=== PATIENT | female | born 1970 | race Caucasian/White ===

== ENCOUNTER 2017-04-20 04:39 | Observation (INO) ==
[2017-04-20] MEDS ORDERED: 0.9 % Sodium Chloride 1,000 ML IVC ONE ×2 (04:50→05:49)
[2017-04-20 05:40] LABS: Basophils # 0.1 K/mcL (0.0-0.2); Basophils % 0.3 %; Eosinophils # 0.2 K/mcL (0.0-0.6); Eosinophils % 1.2 %; Hemoglobin 12.8 g/dL (11.5-15.4); Immature Granulocytes % 0.6 % (0-4); Immature Platelets 2.4 % (1.1-6.1); Lymphocytes # 3.6 K/mcL (0.6-4.6); Lymphocytes % 20.3 %; Mean Corpuscular HGB Conc 32.8 g/dL (31.6-35.5); Mean Corpuscular Hemoglobin 28.6 pg (28.0-33.3); Mean Corpuscular Volume 87.1 fL (83.0-100.0); Mean Platelet Volume 8.8 fL (9.4-12.4); Monocytes # 0.8 K/mcL (0.0-1.3); Monocytes % 4.4 %; Neutrophils # 12.9 K/mcL (1.6-8.9); Platelet Count 291 K/mcL (140-400); Red Blood Count 4.48 M/mcL (3.82-4.97); Red Cell Distribution Width 14.1 % (11.5-14.5); Segmented Neutrophils % 73.2 %
--- NOTE | 2017-04-20 05:45 | Emergency Department Note ---
Disposition Clinical Impression: Hypotension Qualifiers: Hypotension type: unspecified hypotension type Qualified Code(s): I95.9 - Hypotension, unspecified Disposition: Still a Patient Condition: Fair Referrals: Nestor Stewart CNP [Primary Care Provider] - Forms: ED Satisfaction Letter, Work/School Release Time of Disposition: 07:27 General Adult HPI - General Chief complaint: ED General Medical Stated complaint: hypotension Time Seen by Provider: 04/20/17 04:40 Source: patient, family, EMS Limitations: no limitations Nursing Notes Reviewed: Yes Vital Signs Reviewed: Yes - History of Present Illness HPI Narrative: 46yo female c/o hypotension. She also felt chest pain, dizziness. She called squad her symptoms, and blood pressure on arrival was 94/57. She was given 500 mL saline which improved her pressure 113/54. Patient does mention recent initiation of 2 blood pressure medications at her doctor's office yesterday which were clonidine and metoprolol. She was seen yesterday for follow-up from an emergency visit one week ago. An emergency visit she had presented with a headache and patient mentioned she also had hypertension. She tells me that symptoms improved, but her workup did not determine any causes. She mentions diarrhea this past week, and intermittent lightheadedness. She had bouts of CP earlier in the week. She denies fever, abdominal pain, urinary symptoms, CRESPO, weakness. Pain Scale: 6 - Related Data Home Medications Medication Instructions Recorded Confirmed Albuterol Sulfate [Albuterol 90 mcg IH Q4HR PRN 03/27/15 10/20/15 Inhaler] Azelastine 1% Nasal [place] [Astelin] 1 spr NS BID 03/27/15 10/20/15 Calcium Carbonate/Vitamin D3 1 each PO DAILY 03/27/15 10/20/15 [Calcium 600 + D Tablet] Cetirizine HCl [Zyrtec] 10 mg PO DAILY 03/27/15 10/20/15 Cyclobenzaprine [Flexeril] 10 mg PO TID 03/27/15 10/20/15 EPINEPHrine PACK [EPINEPHrine] 0.3 mg IM ONCE PRN 03/27/15 10/20/15 Fluticasone Propionate Nasal 1 spray NS DAILY 03/27/15 10/20/15 [Flonase] Fluticasone Propionate [Flovent 110 mcg IH BID 03/27/15 10/20/15 Hfa] Hydrochlorothiazide 25 mg PO DAILY 03/27/15 10/20/15 Ipratropium/Albuterol Neb [Duoneb] 3 ml IH Q4HR PRN 03/27/15 10/20/15 Mometasone Furoate [Asmanex] 110 mcg IH BID 03/27/15 10/20/15 Montelukast [Singulair] 10 mg PO DAILY 03/27/15 10/20/15 Omeprazole [PriLOSEC] 20 mg PO DAILY 03/27/15 10/20/15 Oxybutynin [Ditropan] 5 mg PO BID 03/27/15 10/20/15 Paroxetine [Paxil] 10 mg PO DAILY 03/27/15 10/20/15 Potassium Chloride 20 meq PO DAILY 03/27/15 10/20/15 Previous Rx's Medication Instructions Recorded Docusate [Colace] 100 mg PO BID #60 capsule 03/27/15 Amoxicillin 500 mg PO TID #30 tablet 10/20/15 Allergies Allergy/AdvReac Type Severity Reaction Status Date / Time diazepam [From Valium] Allergy Severe Swelling Verified 03/27/15 09:11 of Lip/Tongue/Throat duloxetine [From Cymbalta] Allergy Severe Swelling Verified 03/27/15 09:11 of Lip/Tongue/Throat Minocycline Allergy Severe Swelling Verified 03/27/15 09:11 of Lip/Tongue/Throat olanzapine [From Zyprexa] Allergy Severe Swelling Verified 03/27/15 09:11 of Lip/Tongue/Throat iodine Allergy Mild SWELLING, Verified 03/27/15 09:11 SOB methylprednisolone Allergy Mild SWELLING,SO Verified 03/27/15 09:11 [From Medrol] B acetaminophen [From Percocet] AdvReac Mild Vomiting Verified 03/27/15 09:11 Oxycodone [From Percocet] AdvReac Mild Vomiting Verified 03/27/15 09:11 All systems ED: reviewed and negative except as stated. Constitutional: Denies: fever, chills Eyes: Denies: eye discharge ENT ED: Denies: throat pain Cardiovascular: Denies: palpitations Respiratory: Denies: dyspnea Gastrointestinal: Reports: nausea, vomiting, diarrhea. 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 Absent: conjunctival injection - ENT ENT exam: normal oropharynx - Neck Neck exam: Present: full ROM. Absent: tenderness, meningismus - Chest Chest inspection: Present: symmetric chest wall rise - Respiratory Respiratory exam: Present: normal lung sounds bilaterally. Absent: respiratory distress - Cardiovascular Cardiovascular exam: Present: regular rate, normal rhythm - Abdominal Exam Abdominal exam: Present: soft, Non-Tender - Extremities Exam Extremities exam: Present: normal inspection, full ROM, normal capillary refill - Back Exam Back exam: Present: full ROM, tenderness (chronic L lumbar) - Neurological Exam Neurological exam: Present: alert, oriented X3, CN II-XII intact - Psychiatric Psychiatric exam: Present: normal affect, normal mood - Skin Skin exam: Present: warm, dry, intact, normal color. Absent: rash, cyanosis, diaphoresis Course Course Narrative: Patient presents to [facility] from home with hypotension. She describes her blood pressure being low, and she was recently put on clonidine and metoprolol.Patient states she does take Flexeril at night at times, but did not take it tonight. She did take her Neurontin. She denies any syncope, does mention she has had intermittent feelings of feeling "seasick". She mentions earlier and recheck occasional episodes of chest pain. Vision seen and examined. Family at bedside. Blood pressure improved. Patient alert and oriented 3. Patient afebrile here sent home. Workup initiated. - Reevaluation(s) Reevaluation #1: Patient has elevated white count. Urinalysis checks x-ray unremarkable. Blood pressures improving 104/26. Fluids running. Blood cultures and lactic acid have already vertigo been ordered with initial orders. Patient now complaining of headache. We will order Toradol. Time: 06:22 Reevaluation #2: Care of this patient was transferred over to dayshift provider Dr. Caceres. Please see his documentation for details. I did discuss patient with Dr. Caceres , specifically patient's lab work, chest pain. Plan will be to discuss with hospitalist for admission for cardiac rule out. Dr. Caceres also mentioned no need for antibiotics at this point, elevated white count likely due to gastroenteritis. We will continue fluids, order a stool culture for C. difficile Time: 07:27 Vital Signs Temperature 98.6 F 04/20/17 04:43 Pulse Rate 68 04/20/17 04:43 Respiratory Rate 16 04/20/17 04:43 Blood Pressure 112/74 04/20/17 04:43 O2 Sat by Pulse Oximetry 99 04/20/17 04:43 Temperature 98.6 F 04/20/17 04:43 Pulse Rate 72 04/20/17 06:15 Respiratory Rate 16 04/20/17 04:43 Blood Pressure 98/63 04/20/17 06:15 O2 Sat by Pulse Oximetry 93 04/20/17 06:15 Oxygen Delivery Oxygen Delivery Nasal Cannula Medical Decision Making - Lab Data Lab results reviewed: Yes I reviewed the patient's lab results. Result diagrams: 04/20/17 05:32 04/20/17 05:32 Lab Results 04/20/17 04/20/17 04/20/17 Range/Units 05:00 05:32 05:32 WBC 17.7 H (4.3-11.1) K/mcL RBC 4.48 (3.82-4.97) M/mcL Hgb 12.8 D (11.5-15.4) g/dL Hct 39.0 (35.3-44.9) % MCV 87.1 (83.0-100.0) fL MCH 28.6 (28.0-33.3) pg MCHC 32.8 (31.6-35.5) g/dL RDW 14.1 (11.5-14.5) % Plt Count 291 (140-400) K/mcL MPV 8.8 L (9.4-12.4) fL Immature Gran % 0.6 (0-4) % Seg Neutrophils % 73.2 % Lymphocytes % 20.3 % Monocytes % 4.4 % Eosinophils % 1.2 % Basophils % 0.3 % Neutrophils # 12.9 H (1.6-8.9) K/mcL Lymphocytes # 3.6 (0.6-4.6) K/mcL Monocytes # 0.8 (0.0-1.3) K/mcL Eosinophils # 0.2 (0.0-0.6) K/mcL Basophils # 0.1 (0.0-0.2) K/mcL Immature Plt Fraction 2.4 (1.1-6.1) % Sodium 140 (136-145) mEq/L Potassium 3.4 L (3.5-4.5) mEq/L Chloride 107 (98-109) mEq/L Carbon Dioxide 25 (19-29) mEq/L BUN 12 (7-20) mg/dL Creatinine 0.75 (0.57-1.11) mg/dL Est GFR ( Amer) > 60 (> 60) Est GFR (Non-Af Amer) > 60 (> 60) BUN/Creatinine Ratio 16 (6-26) Glucose 89 (70-99) mg/dL Calculated Osmolality 289 (280-300) Lactic Acid (0.5-2.2) mmol/L Calcium 9.1 (8.6-10.8) mg/dL Troponin I (0-0.03) ng/mL Urine Color Yellow (Yellow) Urine Clarity Clear (Clear) Urine pH 6.0 (5.0-8.0) pH Units Ur Specific [place] 1.016 (1.010-1.025) Urine Protein Negative (Neg-Trace) mg/dL Urine Glucose (UA) Normal (Normal) mg/dL Urine Ketones Negative (Negative) mg/dL Urine Blood Small H (Negative) Urine Nitrite Negative (Negative) Urine Bilirubin Negative (Negative) Urine Urobilinogen Normal (Normal) mg/dL Ur Leukocyte Esterase Negative (Negative) Urine Microscopic RBC 0-3 (0-3) per hpf Urine Microscopic WBC 3-5 H (0-3) per hpf Ur Squamous Epith Cells Many H (None-Few) per lpf Urine Bacteria Few (None-Few) per hpf Hyaline Casts None Seen (None-Few) per lpf Ur Culture Indicated? NO (NO) 04/20/17 04/20/17 04/20/17 Range/Units 05:32 05:32 06:55 WBC (4.3-11.1) K/mcL RBC (3.82-4.97) M/mcL Hgb (11.5-15.4) g/dL Hct (35.3-44.9) % MCV (83.0-100.0) fL MCH (28.0-33.3) pg MCHC (31.6-35.5) g/dL RDW (11.5-14.5) % Plt Count (140-400) K/mcL MPV (9.4-12.4) fL Immature Gran % (0-4) % Seg Neutrophils % % Lymphocytes % % Monocytes % % Eosinophils % % Basophils % % Neutrophils # (1.6-8.9) K/mcL Lymphocytes # (0.6-4.6) K/mcL Monocytes # (0.0-1.3) K/mcL Eosinophils # (0.0-0.6) K/mcL Basophils # (0.0-0.2) K/mcL Immature Plt Fraction (1.1-6.1) % Sodium (136-145) mEq/L Potassium (3.5-4.5) mEq/L Chloride (98-109) mEq/L Carbon Dioxide (19-29) mEq/L BUN (7-20) mg/dL Creatinine (0.57-1.11) mg/dL Est GFR ( Amer) (> 60) Est GFR (Non-Af Amer) (> 60) BUN/Creatinine Ratio (6-26) Glucose (70-99) mg/dL Calculated Osmolality (280-300) Lactic Acid 1.5 2.1 (0.5-2.2) mmol/L Calcium (8.6-10.8) mg/dL Troponin I 0.01 (0-0.03) ng/mL Urine Color (Yellow) Urine Clarity (Clear) Urine pH (5.0-8.0) pH Units Ur Specific [place] (1.010-1.025) Urine Protein (Neg-Trace) mg/dL Urine Glucose (UA) (Normal) mg/dL Urine Ketones (Negative) mg/dL Urine Blood (Negative) Urine Nitrite (Negative) Urine Bilirubin (Negative) Urine Urobilinogen (Normal) mg/dL Ur Leukocyte Esterase (Negative) Urine Microscopic RBC (0-3) per hpf Urine Microscopic WBC (0-3) per hpf Ur Squamous Epith Cells (None-Few) per lpf Urine Bacteria (None-Few) per hpf Hyaline Casts (None-Few) per lpf Ur Culture Indicated? (NO) - Radiology Data Radiology results reviewed: Yes I reviewed the patient's radiology results. - EKG Data EKG #1 EKG attestation: Yes I reviewed and interpreted this EKG. EKG shows normal: sinus rhythm Rate: normal Rhythm: NSR When compared to previous EKG there are: no significant changes Interpretation: normal EKG S.B.A.R. - S.B.A.R. Situation: Demographics, MOA Background: Presenting Complaint, Relevant PMH, Meds, & Allergies Assessment: Vital Signs, Course and respsone to treatment, Pertinant Lab Results , Outstanding Labs Recommendation: Recommendation based on pending studies, treatments, or consults S.B.A.RHoang Report Given to: Dr. Andrei Shafer Repor Time: 07:27
[2017-04-20] MEDS ORDERED: Ondansetron 4 MG/2 ML VIAL IVP ONE (05:50)
[2017-04-20 05:51] LABS: BUN/Creatinine Ratio 16 (6-26); Blood Urea Nitrogen 12 mg/dL (7-20); Calcium 9.1 mg/dL (8.6-10.8); Carbon Dioxide 25 mEq/L (19-29); Chloride 107 mEq/L (98-109); Glucose 89 mg/dL (70-99); Osmolality,Calculated 289 (280-300); Potassium 3.4 mEq/L (3.5-4.5); Sodium 140 mEq/L (136-145); eGFR For African Americans > 60 (> 60); eGFR For Non-African Americans > 60 (> 60)
[2017-04-20] MEDS ORDERED: Ketorolac 15 MG/ML VIAL IVP ONE (06:05)
[2017-04-20 06:09] LABS: Bilirubin,Urine Negative (Negative); Blood,Urine Small (Negative); Clarity,Urine Clear (Clear); Color,Urine Yellow (Yellow); Glucose,Urine (UA) Normal (Normal); Ketones,Urine Negative (Negative); Leukocyte Esterase,Urine Negative (Negative); Nitrite,Urine Negative (Negative); Protein,Urine Negative (Neg-Trace); Specific Gravity,Urine 1.016 (1.010-1.025); Urobilinogen,Urine Normal (Normal)
[2017-04-20 06:21] LABS: Bacteria,Urine Few per hpf (None-Few); Hyaline Casts,Urine None Seen per lpf (None-Few); RBC,Urine 0-3 per hpf (0-3); Squamous Epithelial Cell,Urine Many per lpf (None-Few)
--- NOTE | 2017-04-20 07:53 | Emergency Department Note ---
Disposition Clinical Impression: Hypotension Qualifiers: Hypotension type: unspecified hypotension type Qualified Code(s): I95.9 - Hypotension, unspecified Chest pain Qualifiers: Chest pain type: unspecified Qualified Code(s): R07.9 - Chest pain, unspecified Disposition: Admitted As Inpatient Condition: Fair Referrals: Nestor Stewart CNP [Primary Care Provider] - Forms: ED Satisfaction Letter, Work/School Release Time of Disposition: 07:52 General Adult HPI - General Chief complaint: ED General Medical Stated complaint: hypotension Time Seen by Provider: 04/20/17 04:40 Source: patient, family, EMS Limitations: no limitations - History of Present Illness Pain Scale: 6 - Related Data Home Medications Medication Instructions Recorded Confirmed Albuterol Sulfate [Albuterol 90 mcg IH Q4HR PRN 03/27/15 10/20/15 Inhaler] Azelastine 1% Nasal [place] [Astelin] 1 spr NS BID 03/27/15 10/20/15 Calcium Carbonate/Vitamin D3 1 each PO DAILY 03/27/15 10/20/15 [Calcium 600 + D Tablet] Cetirizine HCl [Zyrtec] 10 mg PO DAILY 03/27/15 10/20/15 Cyclobenzaprine [Flexeril] 10 mg PO TID 03/27/15 10/20/15 EPINEPHrine PACK [EPINEPHrine] 0.3 mg IM ONCE PRN 03/27/15 10/20/15 Fluticasone Propionate Nasal 1 spray NS DAILY 03/27/15 10/20/15 [Flonase] Fluticasone Propionate [Flovent 110 mcg IH BID 03/27/15 10/20/15 Hfa] Hydrochlorothiazide 25 mg PO DAILY 03/27/15 10/20/15 Ipratropium/Albuterol Neb [Duoneb] 3 ml IH Q4HR PRN 03/27/15 10/20/15 Mometasone Furoate [Asmanex] 110 mcg IH BID 03/27/15 10/20/15 Montelukast [Singulair] 10 mg PO DAILY 03/27/15 10/20/15 Omeprazole [PriLOSEC] 20 mg PO DAILY 03/27/15 10/20/15 Oxybutynin [Ditropan] 5 mg PO BID 10/23/15 05/17/16 Paroxetine [Paxil] 10 mg PO DAILY 03/27/15 10/20/15 Potassium Chloride 20 meq PO DAILY 03/27/15 10/20/15 Previous Rx's Medication Instructions Recorded Docusate [Colace] 100 mg PO BID #60 capsule 03/27/15 Amoxicillin 500 mg PO TID #30 tablet 10/20/15 Allergies Allergy/AdvReac Type Severity Reaction Status Date / Time diazepam [From Valium] Allergy Severe Swelling Verified 03/27/15 09:11 of Lip/Tongue/Throat duloxetine [From Cymbalta] Allergy Severe Swelling Verified 03/27/15 09:11 of Lip/Tongue/Throat Minocycline Allergy Severe Swelling Verified 03/27/15 09:11 of Lip/Tongue/Throat olanzapine [From Zyprexa] Allergy Severe Swelling Verified 03/27/15 09:11 of Lip/Tongue/Throat iodine Allergy Mild SWELLING, Verified 03/27/15 09:11 SOB methylprednisolone Allergy Mild SWELLING,SO Verified 03/27/15 09:11 [From Medrol] B acetaminophen [From Percocet] AdvReac Mild Vomiting Verified 03/27/15 09:11 Oxycodone [From Percocet] AdvReac Mild Vomiting Verified 03/27/15 09:11 Constitutional: Denies: fever, chills Eyes: Denies: eye discharge ENT ED: Denies: throat pain Cardiovascular: Denies: palpitations Respiratory: Denies: dyspnea Gastrointestinal: Reports: nausea, vomiting, diarrhea. 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 Patient had the hypotension likely related to starting new medications. She also has had intermittent chest pain for the last week. She does have multiple risk factors and she has not had a cardiac workup. For further evaluation and treatment. Time: 07:51 - Consultations Consultation #1: Discussed with Haroon Serrano, who accepts the patient. Time: 07:52 Vital Signs Temperature 98.6 F 04/20/17 04:43 Pulse Rate 68 04/20/17 04:43 Respiratory Rate 16 04/20/17 04:43 Blood Pressure 112/74 04/20/17 04:43 O2 Sat by Pulse Oximetry 99 04/20/17 04:43 Temperature 98.6 F 04/20/17 04:43 Pulse Rate 72 04/20/17 06:15 Respiratory Rate 16 04/20/17 04:43 Blood Pressure 98/63 04/20/17 06:15 O2 Sat by Pulse Oximetry 93 04/20/17 06:15 Oxygen Delivery Oxygen Delivery Nasal Cannula Medical Decision Making - Lab Data Result diagrams: 04/20/17 05:32 04/20/17 05:32 Lab Results 04/20/17 04/20/17 04/20/17 Range/Units 05:00 05:32 05:32 WBC 17.7 H (4.3-11.1) K/mcL RBC 4.48 (3.82-4.97) M/mcL Hgb 12.8 D (11.5-15.4) g/dL Hct 39.0 (35.3-44.9) % MCV 87.1 (83.0-100.0) fL MCH 28.6 (28.0-33.3) pg MCHC 32.8 (31.6-35.5) g/dL RDW 14.1 (11.5-14.5) % Plt Count 291 (140-400) K/mcL MPV 8.8 L (9.4-12.4) fL Immature Gran % 0.6 (0-4) % Seg Neutrophils % 73.2 % Lymphocytes % 20.3 % Monocytes % 4.4 % Eosinophils % 1.2 % Basophils % 0.3 % Neutrophils # 12.9 H (1.6-8.9) K/mcL Lymphocytes # 3.6 (0.6-4.6) K/mcL Monocytes # 0.8 (0.0-1.3) K/mcL Eosinophils # 0.2 (0.0-0.6) K/mcL Basophils # 0.1 (0.0-0.2) K/mcL Immature Plt Fraction 2.4 (1.1-6.1) % Sodium 140 (136-145) mEq/L Potassium 3.4 L (3.5-4.5) mEq/L Chloride 107 (98-109) mEq/L Carbon Dioxide 25 (19-29) mEq/L BUN 12 (7-20) mg/dL Creatinine 0.75 (0.57-1.11) mg/dL Est GFR ( Amer) > 60 (> 60) Est GFR (Non-Af Amer) > 60 (> 60) BUN/Creatinine Ratio 16 (6-26) Glucose 89 (70-99) mg/dL Calculated Osmolality 289 (280-300) Lactic Acid (0.5-2.2) mmol/L Calcium 9.1 (8.6-10.8) mg/dL Troponin I (0-0.03) ng/mL Urine Color Yellow (Yellow) Urine Clarity Clear (Clear) Urine pH 6.0 (5.0-8.0) pH Units Ur Specific [place] 1.016 (1.010-1.025) Urine Protein Negative (Neg-Trace) mg/dL Urine Glucose (UA) Normal (Normal) mg/dL Urine Ketones Negative (Negative) mg/dL Urine Blood Small H (Negative) Urine Nitrite Negative (Negative) Urine Bilirubin Negative (Negative) Urine Urobilinogen Normal (Normal) mg/dL Ur Leukocyte Esterase Negative (Negative) Urine Microscopic RBC 0-3 (0-3) per hpf Urine Microscopic WBC 3-5 H (0-3) per hpf Ur Squamous Epith Cells Many H (None-Few) per lpf Urine Bacteria Few (None-Few) per hpf Hyaline Casts None Seen (None-Few) per lpf Ur Culture Indicated? NO (NO) 04/20/17 04/20/17 04/20/17 Range/Units 05:32 05:32 06:55 WBC (4.3-11.1) K/mcL RBC (3.82-4.97) M/mcL Hgb (11.5-15.4) g/dL Hct (35.3-44.9) % MCV (83.0-100.0) fL MCH (28.0-33.3) pg MCHC (31.6-35.5) g/dL RDW (11.5-14.5) % Plt Count (140-400) K/mcL MPV (9.4-12.4) fL Immature Gran % (0-4) % Seg Neutrophils % % Lymphocytes % % Monocytes % % Eosinophils % % Basophils % % Neutrophils # (1.6-8.9) K/mcL Lymphocytes # (0.6-4.6) K/mcL Monocytes # (0.0-1.3) K/mcL Eosinophils # (0.0-0.6) K/mcL Basophils # (0.0-0.2) K/mcL Immature Plt Fraction (1.1-6.1) % Sodium (136-145) mEq/L Potassium (3.5-4.5) mEq/L Chloride (98-109) mEq/L Carbon Dioxide (19-29) mEq/L BUN (7-20) mg/dL Creatinine (0.57-1.11) mg/dL Est GFR ( Amer) (> 60) Est GFR (Non-Af Amer) (> 60) BUN/Creatinine Ratio (6-26) Glucose (70-99) mg/dL Calculated Osmolality (280-300) Lactic Acid 1.5 2.1 (0.5-2.2) mmol/L Calcium (8.6-10.8) mg/dL Troponin I 0.01 (0-0.03) ng/mL Urine Color (Yellow) Urine Clarity (Clear) Urine pH (5.0-8.0) pH Units Ur Specific [place] (1.010-1.025) Urine Protein (Neg-Trace) mg/dL Urine Glucose (UA) (Normal) mg/dL Urine Ketones (Negative) mg/dL Urine Blood (Negative) Urine Nitrite (Negative) Urine Bilirubin (Negative) Urine Urobilinogen (Normal) mg/dL Ur Leukocyte Esterase (Negative) Urine Microscopic RBC (0-3) per hpf Urine Microscopic WBC (0-3) per hpf Ur Squamous Epith Cells (None-Few) per lpf Urine Bacteria (None-Few) per hpf Hyaline Casts (None-Few) per lpf Ur Culture Indicated? (NO)
[2017-04-20] MEDS ORDERED: *HR* HYDROcodone/Acet 5/325 mg TABLET PO PRN (08:26)
[2017-04-20] MEDS ORDERED: Ondansetron 4 MG/2 ML VIAL IVP PRN (08:26)
[2017-04-20] MEDS ORDERED: Acetaminophen 325 MG TABLET PO PRN (08:26)
[2017-04-20] MEDS ORDERED: Naloxone 0.4 MG/ML INJ IVP PRN (08:26)
--- NOTE | 2017-04-20 08:47 | Internal Med History&Physical ---
Date of Encounter: 04/20/17 Time of Encounter: 07:30 Assessment and Plan (1) Chest pain Current visit: Yes Status: Acute Acute and intermittent chest pain over the past month that the pain described as sharp and stabbing followed by pressure without radiation and without exertion. Patient's risk factors include hyperlipidemia and hypertension but she denies any history of cardiac issues, angioplasty, or stent placement. No recent echocardiogram. Initial troponin 0.01. Trend 2. Echocardiogram ordered. Continuous cardiac telemetry. Will consider stress test/cardiology consult based on echocardiogram results. Pt. is at high risk for cardiac event based on current sx, hx of CP for > 1 month, and risk factors. Inpatient. Qualifiers: Chest pain type: unspecified Qualified Code(s): R07.9 - Chest pain, unspecified (2) Hypotension Current visit: Yes Status: Acute Acute hypotension past 24 hours. Patient states she was placed on clonidine and metoprolol beginning yesterday. Patient takes hydrochlorothiazide in addition. Will hold hydrochlorothiazide and clonidine and continue metoprolol. Monitor patient and vital signs. Qualifiers: Hypotension type: unspecified hypotension type Qualified Code(s): I95.9 - Hypotension, unspecified (3) Leukocytosis Current visit: Yes Status: Acute Acute leukocytosis with WBC of 17.7. Pt. reports being sick last week with nausea, vomiting, diarrhea, fever, and cough w/yellow sputum. Was seen in ED and discharged without antibiotics. Reports continued cough/sputum. 1-View CXR today shows no acute disease. Pt. does not currently meet SIRS criteria, but will monitor for signs of increasing infection. IVPB 750 mg daily for infection coverage. Blood cultures x2. Sputum culture. Will adjust abx coverage based on culture results. Qualifiers: Leukocytosis type: unspecified Qualified Code(s): D72.829 - Elevated white blood cell count, unspecified (4) Dizziness Current visit: Yes Status: Acute Acute dizziness reported over the past day most likely r/t hypotension. Continuous cardiac telemetry. Falls/safety precautions. (5) Hypokalemia Current visit: Yes Status: Acute Acute hypokalemia with potassium level of 3.4 on admission. 20 mEq PO potassium. Continuous cardiac telemetry. Monitor f/u labs. (6) HLD (hyperlipidemia) Current visit: Yes Status: Chronic Hx of chronic HLD. Lipid panel in a.m. labs. Continue Triglide and Zetia. Qualifiers: Hyperlipidemia type: pure hypercholesterolemia Qualified Code(s): E78.00 - Pure hypercholesterolemia, unspecified; E78.0 - Pure hypercholesterolemia (7) Asthma Current visit: Yes Status: Chronic Hx of chronic asthma. Continue patient's Singulair and Asmanex. Qualifiers: Asthma severity: mild Asthma persistence: intermittent Asthma complication type: uncomplicated Qualified Code(s): J45.20 - Mild intermittent asthma, uncomplicated (8) Chronic GERD Current visit: Yes Status: Chronic Hx of chronic GERD. 150 mg Zantac syrup BID daily. (9) DVT prophylaxis Current visit: Yes Status: Acute Lovenox 40 mg 0600 daily for DVT prophylaxis. Monitor pt. for signs of bleeding. Internal Medicine - H&P: HPI Chief complaint: Chest pain/Hypotension Admitted From: Emergency Dept Plans for Post Hospital Care: Home History of present illness: Ms. Chambers is a 46 year old female with medical history of asthma, GERD, HLD, and HTN presents to ED with chief complaint of chest pain and low blood pressure for the past day. Patient states she has had intermittent chest pain for the past month that she describes as sharp and stabbing followed by pressure without radiation and without exertion. She also reports hypertension began yesterday after being placed on 2 new HTN medications (metoprolol and clonidine). Denies previous hypotensive episodes. Patient also reports recent illness last week with nausea, vomiting, diarrhea, fever, and cough with yellow sputum production for which she was seen in ED and discharged w/o abx. Pt. also reports dizziness but denies current nausea, vomiting, diarrhea, constipation, abdominal pain, palpitations, changes in vision, unusual bleeding, headache, weakness, shortness of breath, diaphoresis, numbness, tingling, pre-syncope, or syncope. Past Med Surg Social Fam HX - Past Medical History Source: patient, old records reviewed Medical history: asthma, GERD, hyperlipidemia, hypertension, other Psychiatric history: depression - Past Surgical History Surgical History: appendectomy, cholecystectomy, hysterectomy (Total), orthopedic, other (Back surgery x7, Rt. shoulder x2), BIBIANA/BSO, other ( Tonsillectomy) - Social History Smoking Status: Current every day smoker Packs per day: 1 PPD Smokeless Tobacco Status: No Alcohol use: none Drug use: none Current living situation: Home Activity Level: Independent ambulation Recent Out of Country Travel Within the Last 8 Weeks: No Exposure or Possible Exposure to Illness During Travel: No - Family History Father Race: Family Member Ethnicity: Non- Living Status: Age at : 58 Cause of : Throat cancer Hx Family Cardiac Disorders: Yes ([place]) Hx Family Cancer: Yes (Throat) Mother Race: Family Member Ethnicity: Non- Living Status: Still Living Hx Family Medical Disorders: No Sister Race: Family Member Ethnicity: Non- Living Status: Still Living Hx Family Medical Disorders: No Internal Medicine - H&P: Meds Albuterol Sulfate [Albuterol Inhaler] 90 mcg IH Q4HR PRN 03/27/15 [History] Azelastine 1% Nasal [place] [Astelin] 1 spr NS BID 03/27/15 [History] Calcium Carbonate/Vitamin D3 [Calcium 600 + D Tablet] 1 each PO DAILY 03/27/15 [ History] Cetirizine HCl [Zyrtec] 10 mg PO DAILY 03/27/15 [History] Cyclobenzaprine [Flexeril] 10 mg PO TID 03/27/15 [History] Docusate [Colace] 100 mg PO BID #60 capsule 03/27/15 [Rx] EPINEPHrine PACK [EPINEPHrine] 0.3 mg IM ONCE PRN 03/27/15 [History] Fluticasone Propionate Nasal [Flonase] 1 spray NS DAILY 03/27/15 [History] Hydrochlorothiazide 25 mg PO DAILY 03/27/15 [History] Mometasone Furoate [Asmanex] 110 mcg IH BID 03/27/15 [History] Montelukast [Singulair] 10 mg PO DAILY 03/27/15 [History] Paroxetine [Paxil] 10 mg PO DAILY 03/27/15 [History] Potassium Chloride 20 meq PO DAILY 03/27/15 [History] Ezetimibe [Zetia] 10 mg PO DAILY 04/20/17 [History] Fenofibrate Nanocrystallized [Triglide] 160 mg PO DAILY 04/20/17 [History] Gabapentin [Neurontin] 300 mg PO TID 04/20/17 [History] Metoprolol XL (24 HR) Succ [Toprol XL] 25 mg PO DAILY 04/20/17 [History] Paroxetine HCl [Paxil] 40 mg PO DAILY 04/20/17 [History] Ranitidine HCl [Acid Shells Inspector] 150 mg PO BID 04/20/17 [History] cloNIDine HCl [CloNIDine HCl] 0.1 mg PO TID 04/20/17 [History] 3 Allergy/AdvReac Type Severity Reaction Status Date / Time diazepam [From Valium] Allergy Severe Swelling Verified 04/20/17 08:05 of Lip/Tongue/Throat duloxetine [From Cymbalta] Allergy Severe Swelling Verified 04/20/17 08:05 of Lip/Tongue/Throat Minocycline Allergy Severe Swelling Verified 04/20/17 08:05 of Lip/Tongue/Throat olanzapine [From Zyprexa] Allergy Severe Swelling Verified 04/20/17 08:05 of Lip/Tongue/Throat iodine Allergy Mild SWELLING, Verified 04/20/17 08:05 SOB methylprednisolone Allergy Mild SWELLING,SO Verified 04/20/17 08:05 [From Medrol] B acetaminophen [From Percocet] AdvReac Mild Vomiting Verified 04/20/17 08:05 Oxycodone [From Percocet] AdvReac Mild Vomiting Verified 04/20/17 08:05 All Systems PM: A 10-system review of systems was performed and is negative for pertinent findings except as documented above in the HPI. - Constitutional Constitutional: as per HPI, no chills, no fever(s), no night sweats - EENT Eyes: no change in vision, no discharge, no pain, no photophobia Ears: no ear discharge, no ear pain, no tinnitus Nose, mouth and throat: no dysphagia, no nasal discharge, no neck pain, no sore throat - Breasts Breasts: as per HPI - Cardiovascular Cardiovascular ROS IM: as per HPI, chest pain (Sharp and stabbing pain followed by pressure that is intermittent) - Respiratory Respiratory: as per HPI, cough, change in phlegm color - Gastrointestinal Gastrointestinal: no abdominal pain, no diarrhea, no hematemesis, no hematochezia, no melena, no nausea, no vomiting - Genitourinary Genitourinary: no change in urinary stream, no dysuria, no flank pain, no hematuria Menstruation: as per HPI, post hysterectomy - Musculoskeletal Musculoskeletal ROS IM: no numbness, no tingling - Integumentary Integumentary IM: no rash, no unusual bruising - Neurological Neurological ROS: as per HPI, dizziness, no confusion, no convulsions, no focal weakness, no numbness, no tingling, no tremor(s) - Psychiatric Psychiatric: as per HPI, depression - Endocrine Endocrine IM: as per HPI - Hematologic/Lymphatic Hematologic/Lymphatic: no easy bruising - Allergic/Immunologic Allergic/Immunologic: as per HPI - Constitutional Vitals: Temp Pulse Resp BP Pulse Ox 98.6 F 72 16 101/64 93 04/20/17 04:43 04/20/17 06:15 04/20/17 08:30 04/20/17 08:30 04/20/17 06:15 General appearance: Present: cooperative, A&O X 3, pleasant, no acute distress, obese, answers questions appropriately - Head Head exam: Present: atraumatic, normocephalic - Eye Eye exam: Present: PERRL, conjuntiva pink, sclera anicteric Pupils: Present: PERRL - ENT ENT exam: Present: normal exam, normal external ear exam - Neck Neck exam general surgery: Present: normal inspection, supple, trachea midline. Absent: lymphadenopathy - Respiratory Respiratory exam: Present: CTAB. Absent: accessory muscle use, rales, rhonchi, wheezes - Cardiovascular Cardiovascular exam: Present: RRR, +S1, +S2. Absent: diastolic murmur, gallop, rubs, systolic murmur - GI/Abdominal GI/Abdominal exam: Present: normal bowel sounds, soft, no peritoneal signs. Absent: distended, tenderness - Rectal Rectal exam: Present: deferred - Additional comments: exam deferred. - Extremities Exam Extremities exam: Present: warm, radial pulses palpable and symmetrical. Absent : calf tenderness, cyanotic, pedal edema - Back Exam Back exam: Present: normal inspection - Neurological Exam Neurological exam: Present: CN II-XII intact, oriented X3, no focal deficits. Absent: pronater drift, facial droop, speech deficit - Psychiatric Psychiatric exam: Present: normal affect, normal mood - Skin Skin exam: Present: dry, intact Internal Med - H&P Results - Labs CBC & Chem 7: 04/20/17 05:32 04/20/17 05:32 - EKG Data EKG shows normal: sinus rhythm Rate: normal - EKG Data Prior EKG available for review: yes EKG comments: 04/20/17 08:53 EKG dated 04/14/17 shows sinus rhythm with sinus arrhythmia. EKG dated 04/20/17 shows sinus rhythm and normal ECG. - Diagnostic Studies Chest x-ray Additional comments: Impressions Chest X-Ray 04/20/17 05:43 IMPRESSION: No acute disease. D/ / Luther Mckee MD / Luther Mckee MD Interpreting Provider: Luther Mckee MD
[2017-04-20] MEDS ORDERED: MOMETASONE FUROATE 110 MCG IH SCH (09:00)
[2017-04-20] MEDS ORDERED: ZETIA 10 MG PO SCH (09:00)
[2017-04-20 09:33] LABS: Uric Acid 5.9 mg/dL (2.6-6.0)
[2017-04-20] MEDS ORDERED: Levofloxacin 750 MG/150 ML 750 MG/150 ML BAG IVPB SCH (10:00)
[2017-04-20] MEDS: Gabapentin 300 MG CAPSULE PO SCH ×3 (10:12→21:13)
[2017-04-20] MEDS ORDERED: Nitroglycerin 0.4 MG TAB.SUBL SL PRN (10:12)
[2017-04-20] MEDS: Loratadine 10 MG TABLET PO SCH (10:13)
[2017-04-20] MEDS: Aspirin Enteric Coated 81 MG Tablet PO SCH (10:13)
[2017-04-20] MEDS: Fenofibrate 54 MG TABLET PO SCH (10:13)
[2017-04-20] MEDS: Azelastine 0.1% Nasal Spray 30 ML BOTTLE NS SCH ×2 (10:14→21:13)
[2017-04-20] MEDS: Fluticasone Propionate Nasal 50 MCG/SPRAY BOTTLE NS SCH (10:15)
[2017-04-20] MEDS: Nicotine 14 MG PATCH.TD24 TD SCH (10:16)
[2017-04-20] MEDS: Beclomethasone 80mcg MDI IH SCH ×2 (11:28→20:22)
--- NOTE | 2017-04-20 18:17 | Electrocardiograph Report ---
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
[2017-04-21 03:26] LABS: Basophils # 0.1 K/mcL (0.0-0.2); Basophils % 0.5 %; Eosinophils # 0.2 K/mcL (0.0-0.6); Eosinophils % 1.9 %; Hemoglobin 12.7 g/dL (11.5-15.4); Immature Granulocytes % 0.3 % (0-4); Lymphocytes # 4.3 K/mcL (0.6-4.6); Mean Corpuscular HGB Conc 32.6 g/dL (31.6-35.5); Mean Corpuscular Hemoglobin 28.7 pg (28.0-33.3); Mean Corpuscular Volume 88.2 fL (83.0-100.0); Monocytes # 0.5 K/mcL (0.0-1.3); Monocytes % 4.7 %; Neutrophils # 4.8 K/mcL (1.6-8.9); Platelet Count 253 K/mcL (140-400); Red Blood Count 4.42 M/mcL (3.82-4.97); Segmented Neutrophils % 48.6 %
[2017-04-21 03:43] LABS: Alanine Aminotransferase 10 Units/L (0-55); Albumin 2.7 g/dL (3.5-5.0); Albumin/Globulin Ratio 0.9 (1.1-2.2); Alkaline Phosphatase 91 Units/L (38-126); Aspartate Amino Transferase 13 Units/L (5-34); BUN/Creatinine Ratio 13 (6-26); Bilirubin,Total 0.3 mg/dL (0.2-1.2); Blood Urea Nitrogen 10 mg/dL (7-20); Calcium 8.5 mg/dL (8.6-10.8); Carbon Dioxide 25 mEq/L (19-29); Chloride 113 mEq/L (98-109); Chol/HDL Ratio 9.3 (0-4.9); Cholesterol 270 mg/dL (< 200); Glucose 84 mg/dL (70-99); HDL Cholesterol 29 mg/dL (40-59); LDL Cholesterol,Calculated 183 mg/dL (0-99); Magnesium 1.8 mg/dL (1.6-2.6); Osmolality,Calculated 294 (280-300); Sodium 143 mEq/L (136-145); Total Protein 5.7 g/dL (6.0-8.3); Triglycerides 292 mg/dL (< 150); eGFR For African Americans > 60 (> 60); eGFR For Non-African Americans > 60 (> 60)
[2017-04-21 03:44] LABS: Potassium 4.5 mEq/L (3.5-4.5)
[2017-04-21 04:15] LABS: Hemoglobin A1C 5.3 %
[2017-04-21] MEDS: *HR* Enoxaparin 40 MG/0.4 ML SYRINGE SQ SCH (05:35)
[2017-04-21] MEDS: Beclomethasone 80mcg MDI IH SCH ×2 (08:12→21:45)
[2017-04-21] MEDS ORDERED: Regadenoson 0.4 MG/5 ML SYRINGE IVP ONE (08:25)
[2017-04-21] MEDS ORDERED: Metoprolol XL (24 HR) Succ 25 MG TAB.ER.24H PO SCH ×2 (09:00→12:19)
[2017-04-21] MEDS: levoFLOXacin 750 MG TABLET PO SCH (10:06)
[2017-04-21] MEDS: Cholecalciferol (D-3) 1,000 UNIT TABLET PO SCH (10:06)
[2017-04-21] MEDS: Fenofibrate 54 MG TABLET PO SCH (10:07)
[2017-04-21] MEDS: Gabapentin 300 MG CAPSULE PO SCH ×3 (10:07→20:48)
[2017-04-21] MEDS: Loratadine 10 MG TABLET PO SCH (10:07)
[2017-04-21] MEDS: Aspirin Enteric Coated 81 MG Tablet PO SCH (10:07)
[2017-04-21] MEDS: Famotidine 20 MG TABLET PO SCH ×2 (10:07→20:47)
[2017-04-21] MEDS: Fluticasone Propionate Nasal 50 MCG/SPRAY BOTTLE NS SCH (10:08)
[2017-04-21] MEDS: Nicotine 14 MG PATCH.TD24 TD SCH (10:08)
[2017-04-21] MEDS: Azelastine 0.1% Nasal Spray 30 ML BOTTLE NS SCH ×2 (10:08→20:48)
[2017-04-21] MEDS ORDERED: Acetaminophen 325 MG TABLET PO PRN (12:19)
--- NOTE | 2017-04-21 13:35 | Internal Med Progress Note ---
Date of Encounter: 04/21/17 Time of Encounter: 11:55 - Assessment and plan (1) Chest pain Current Visit: Yes Status: Acute Assessment and plan: Resolved at this time, however reports of intermittent pressure like pain that has been persistent serial TNI negative 2D echo reported no WMA or valvular dysfunction scheduled for nuclear stress test in am NPO after midnight nitro SL prn chest pain Qualifiers: Chest pain type: unspecified Qualified Code(s): R07.9 - Chest pain, unspecified (2) Hypertension Current Visit: Yes Status: Chronic Assessment and plan: pt recently started on HCTZ and Clonidine in addition to home dose to Metoprolol , which may be the reason why she was hypotensive upon arrival D/C clonidine continue home dose of HCTZ and Metoprolol will continue to monitor BP Qualifiers: Hypertension type: essential hypertension Qualified Code(s): I10 - Essential (primary) hypertension (3) Leukocytosis Current Visit: Yes Status: Acute Assessment and plan: Resolved pt recently recovering from a URI clinically responding to therapy will continue abx for total of five days (day 2/5) Qualifiers: Leukocytosis type: unspecified Qualified Code(s): D72.829 - Elevated white blood cell count, unspecified (4) HLD (hyperlipidemia) Current Visit: Yes Status: Chronic Assessment and plan: continue home meds added statin therapy Qualifiers: Hyperlipidemia type: pure hypercholesterolemia Qualified Code(s): E78.00 - Pure hypercholesterolemia, unspecified; E78.0 - Pure hypercholesterolemia (5) DVT prophylaxis Current Visit: Yes Status: Acute Assessment and plan: Lovenox SQ - Subjective Interval history: Patient seen and examined with family present at bedside. Patient admitted for chest pain concerning for ACS. She was scheduled for a stress test however unable to get the test due to patient being on nicotine patch. Pt's serial TNI have been negative 2D echo reported LVEF of 60-65% with no WMA and no valvular dysfunction Pt continues to have intermittent pressure like chest pain Will keep pt NPO after midnight for nuclear stress test in am d/c nicotine patch until after the stress test. - Constitutional Vitals: Temp Pulse Resp BP Pulse Ox 97.8 F 58 19 147/88 98 04/21/17 10:52 04/21/17 10:52 04/21/17 10:52 04/21/17 10:52 04/21/17 10:52 General appearance: Present: cooperative, A&O X 3, pleasant, no acute distress, obese, answers questions appropriately - Head Head exam: Present: atraumatic, normocephalic - Eye Eye exam: Present: conjuntiva pink, sclera anicteric - Respiratory Respiratory exam: Present: CTAB. Absent: accessory muscle use, rales, rhonchi, wheezes - Cardiovascular Cardiovascular exam: Present: RRR, +S1, +S2. Absent: diastolic murmur, gallop, rubs, systolic murmur - GI/Abdominal GI/Abdominal exam: Present: normal bowel sounds, soft, no peritoneal signs. Absent: distended, tenderness - Extremities Exam Extremities exam: Present: warm, radial pulses palpable and symmetrical. Absent : calf tenderness, pedal edema - Neurological Exam Neurological exam: Present: alert, oriented X3 - Psychiatric Psychiatric exam: Present: normal affect, normal mood Internal Medicine: Result - Labs CBC & Chem 7: 04/21/17 02:43 04/21/17 02:43 Labs: Short CBC 04/21/17 Range/Units 02:43 WBC 9.8 (4.3-11.1) K/mcL Hgb 12.7 (11.5-15.4) g/dL Hct 39.0 (35.3-44.9) % Plt Count 253 (140-400) K/mcL Neutrophils # 4.8 (1.6-8.9) K/mcL BMP 04/21/17 02:43 Sodium 143 Potassium 4.5 D Chloride 113 H Carbon Dioxide 25 BUN 10 Creatinine 0.77 Glucose 84 Calcium 8.5 L Cardiac Enzymes 04/20/17 Range/Units 16:30 Troponin I 0.00 (0-0.03) ng/mL Liver Function 04/21/17 Range/Units 02:43 Total Bilirubin 0.3 (0.2-1.2) mg/dL AST 13 (5-34) Units/L ALT 10 (0-55) Units/L Alkaline Phosphatase 91 (38-126) Units/L Albumin 2.7 L D (3.5-5.0) g/dL - Impressions Impressions Echocardiogram 04/20/17 08:39 Impressions: LVEF 60-65%. Normal LV chamber size, wall thickness and function. Normal left ventricular diastolic function. Normal right ventricular structure and function. No significant valvular dysfunction. Unable to estimate RVSP due to lack of TR jet. Left Ventricular Wall Motion: Rest Echo Findings All wall segments showed normal motion. Findings: Study Quality * Technically sub-optimal due to poor echocardiographic windows. ECG Findings * Normal sinus rhythm. Left Ventricle * LVEF 60-65%. * Normal LV chamber size, wall thickness and function. * Normal left ventricular diastolic function. Right Ventricle * Normal right ventricular structure and function. Left Atrium * Normal left atrial size. Right Atrium * Normal right atrial size. Interatrial Septum * Interatrial septum not well evaluated. Aortic Valve * Aortic valve not well visualized. * No aortic stenosis. * No aortic regurgitation. Mitral Valve * Normal mitral valve structure and function. * No mitral stenosis. * Trace mitral regurgitation. Tricuspid Valve * Normal tricuspid valve structure and function. * No tricuspid regurgitation. * Unable to estimate RVSP due to lack of TR jet. Pulmonic Valve * Pulmonic valve not well visualized. * No pulmonic regurgitation. Aorta * Normally sized aortic root. Pericardium * The pericardium appears normal. IVC * Normal IVC dimensions and inspiratory collapse. Pulmonary Artery * Normal visualized portions of the main pulmonary artery. Consult Discharge Plan - Plan Referrals: Nestor Stewart CNP [Primary Care Provider] - (web request sent on 04/20/17 )
[2017-04-22 05:08] LABS: Basophils # 0.1 K/mcL (0.0-0.2); Basophils % 0.6 %; Eosinophils # 0.2 K/mcL (0.0-0.6); Eosinophils % 1.7 %; Hematocrit 40.8 % (35.3-44.9); Hemoglobin 13.3 g/dL (11.5-15.4); Immature Granulocytes % 0.5 % (0-4); Lymphocytes # 4.5 K/mcL (0.6-4.6); Lymphocytes % 41.3 %; Mean Corpuscular HGB Conc 32.6 g/dL (31.6-35.5); Mean Corpuscular Hemoglobin 28.1 pg (28.0-33.3); Mean Corpuscular Volume 86.3 fL (83.0-100.0); Mean Platelet Volume 9.1 fL (9.4-12.4); Monocytes # 0.5 K/mcL (0.0-1.3); Monocytes % 4.5 %; Neutrophils # 5.7 K/mcL (1.6-8.9); Platelet Count 262 K/mcL (140-400); Red Blood Count 4.73 M/mcL (3.82-4.97); Red Cell Distribution Width 13.8 % (11.5-14.5); Segmented Neutrophils % 51.4 %
[2017-04-22 05:30] LABS: BUN/Creatinine Ratio 16 (6-26); Blood Urea Nitrogen 14 mg/dL (7-20); Carbon Dioxide 24 mEq/L (19-29); Chloride 110 mEq/L (98-109); Potassium 4.3 mEq/L (3.5-4.5); Sodium 141 mEq/L (136-145)
[2017-04-22 05:31] LABS: Alanine Aminotransferase 13 Units/L (0-55); Albumin 2.9 g/dL (3.5-5.0); Albumin/Globulin Ratio 0.9 (1.1-2.2); Alkaline Phosphatase 94 Units/L (38-126); Aspartate Amino Transferase 15 Units/L (5-34); Bilirubin,Total 0.3 mg/dL (0.2-1.2); Calcium 8.8 mg/dL (8.6-10.8); Globulin 3.3 g/dL (2.4-3.5); Glucose 95 mg/dL (70-99); Magnesium 1.7 mg/dL (1.6-2.6); Osmolality,Calculated 292 (280-300); Phosphorous 4.1 mg/dL (2.3-4.7); Total Protein 6.2 g/dL (6.0-8.3); eGFR For African Americans > 60 (> 60); eGFR For Non-African Americans > 60 (> 60)
[2017-04-22] MEDS: *HR* Enoxaparin 40 MG/0.4 ML SYRINGE SQ SCH (05:36)
[2017-04-22] MEDS ORDERED: Regadenoson 0.4 MG/5 ML SYRINGE IVP ONE (06:50)
[2017-04-22] MEDS: Beclomethasone 80mcg MDI IH SCH (07:34)
[2017-04-22] MEDS ORDERED: Metoprolol XL (24 HR) Succ 25 MG TAB.ER.24H PO SCH (08:05)
[2017-04-22] MEDS ORDERED: hydroCHLOROthiazide 25 MG TABLET PO SCH (09:00)
[2017-04-22] MEDS: Gabapentin 300 MG CAPSULE PO SCH (10:11)
[2017-04-22] MEDS: Famotidine 20 MG TABLET PO SCH (10:11)
[2017-04-22] MEDS: levoFLOXacin 750 MG TABLET PO SCH (10:11)
[2017-04-22] MEDS: Aspirin Enteric Coated 81 MG Tablet PO SCH (10:11)
[2017-04-22] MEDS: Loratadine 10 MG TABLET PO SCH (10:12)
[2017-04-22] MEDS: Cholecalciferol (D-3) 1,000 UNIT TABLET PO SCH (10:12)
[2017-04-22] MEDS: Fenofibrate 54 MG TABLET PO SCH (10:12)
[2017-04-22] MEDS: Fluticasone Propionate Nasal 50 MCG/SPRAY BOTTLE NS SCH (10:20)
[2017-04-22] MEDS: Azelastine 0.1% Nasal Spray 30 ML BOTTLE NS SCH (10:20)
[2017-04-22 11:15] VITALS: BP 125/78
--- NOTE | 2017-04-22 14:32 | Discharge Summary ---
Date of Encounter: 04/22/17 Time of Encounter: 14:28 - Discharge Diagnosis (1) Chest pain Priority: Primary Status: Resolved Qualifiers: Chest pain type: unspecified Qualified Code(s): R07.9 - Chest pain, unspecified (2) Hypertension Priority: Secondary Status: Chronic Qualifiers: Hypertension type: essential hypertension Qualified Code(s): I10 - Essential (primary) hypertension (3) Leukocytosis Priority: Secondary Status: Resolved Qualifiers: Leukocytosis type: unspecified Qualified Code(s): D72.829 - Elevated white blood cell count, unspecified (4) HLD (hyperlipidemia) Priority: Secondary Status: Chronic Qualifiers: Hyperlipidemia type: pure hypercholesterolemia Qualified Code(s): E78.00 - Pure hypercholesterolemia, unspecified; E78.0 - Pure hypercholesterolemia (5) DVT prophylaxis Priority: Secondary Status: Acute - Discharge Medications Prescriptions: Aspirin Enteric Coated [Aspirin EC] 81 mg PO DAILY #30 tablet. levoFLOXacin [Levaquin] 750 mg PO Q24H #3 tablet Home Medications: Albuterol Sulfate [Albuterol Inhaler] 90 mcg IH Q4HR PRN 03/27/15 [History] Azelastine 1% Nasal [place] [Astelin] 1 spr NS BID 03/27/15 [History] Calcium Carbonate/Vitamin D3 [Calcium 600 + D Tablet] 1 each PO DAILY 03/27/15 [ History] Cetirizine HCl [Zyrtec] 10 mg PO DAILY 03/27/15 [History] Cyclobenzaprine [Flexeril] 10 mg PO TID 03/27/15 [History] Docusate [Colace] 100 mg PO BID #60 capsule 03/27/15 [Rx] EPINEPHrine PACK [EPINEPHrine] 0.3 mg IM ONCE PRN 03/27/15 [History] Fluticasone Propionate Nasal [Flonase] 1 spray NS DAILY 03/27/15 [History] Hydrochlorothiazide 25 mg PO DAILY 03/27/15 [History] Mometasone Furoate [Asmanex] 110 mcg IH BID 03/27/15 [History] Montelukast [Singulair] 10 mg PO DAILY 03/27/15 [History] Potassium Chloride 20 meq PO DAILY 03/27/15 [History] Ezetimibe [Zetia] 10 mg PO DAILY 04/20/17 [History] Fenofibrate Nanocrystallized [Triglide] 160 mg PO DAILY 04/20/17 [History] Gabapentin [Neurontin] 300 mg PO TID 04/20/17 [History] Metoprolol XL (24 HR) Succ [Toprol Xl] 25 mg PO DAILY 04/20/17 [History] Paroxetine HCl [Paxil] 40 mg PO DAILY 04/20/17 [History] Ranitidine HCl [Acid Lead Supply Worker] 150 mg PO BID 04/20/17 [History] Aspirin Enteric Coated [Aspirin EC] 81 mg PO DAILY #30 tablet. 04/22/17 [Rx] levoFLOXacin [Levaquin] 750 mg PO Q24H #3 tablet 04/22/17 [Rx] Allergies/Adverse Reactions: 3 Allergy/AdvReac Type Severity Reaction Status Date / Time diazepam [From Valium] Allergy Severe Swelling Verified 04/20/17 08:05 of Lip/Tongue/Throat duloxetine [From Cymbalta] Allergy Severe Swelling Verified 04/20/17 08:05 of Lip/Tongue/Throat Minocycline Allergy Severe Swelling Verified 04/20/17 08:05 of Lip/Tongue/Throat olanzapine [From Zyprexa] Allergy Severe Swelling Verified 04/20/17 08:05 of Lip/Tongue/Throat iodine Allergy Mild SWELLING, Verified 04/20/17 08:05 SOB methylprednisolone Allergy Mild SWELLING,SO Verified 04/20/17 08:05 [From Medrol] B hydrocodone Allergy Swelling Verified 04/21/17 10:35 of Lip/Tongue/Throat Iodinated Contrast- Oral and Allergy Swelling Verified 04/21/17 10:35 IV Dye of Lip/Tongue/Throat Onion Allergy Swelling Verified 04/21/17 10:36 of Lip/Tongue/Throat acetaminophen [From Percocet] AdvReac Mild Vomiting Verified 04/20/17 08:05 Oxycodone [From Percocet] AdvReac Mild Vomiting Verified 04/20/17 08:05 Procedures/tests Complete & Pending: Procedures Performed prior 72 hours Category Date Time Status NM davey perf SPECT multi [NM] Routine Exams 04/22/17 07:00 Taken EV echocardiogram Stat Y 04/20/17 08:39 Completed SP pharm nuclear stress Routine Y 04/22/17 07:30 Completed Date of admission: 04/20/17 08:08 Primary care physician: Nestor Stewart CNP Consults: 04/20/17 09:46 Consult to Nutrition [CONS] Routine Comment: Consulting Provider: NUTRITION Reason for Dietary Consult: MST Score Discharging clinician: Yael Ríos Anticipated date of discharge: 04/22/17 - Patient Status Disposition: Home, Self-Care Condition: Good Functional capacity at discharge: independent ambulation Overall status at discharge: patient is back to baseline - Discharge Instructions Instructions: How to Stop Smoking (DC), Fall Prevention (DC) Follow Up With: Nestor Stewart CNP [Primary Care Provider] - 04/25/17 4:30 pm (web request sent on 04/20/17 ) Additional Instructions: Please follow up with your primary care physician within one week after your discharge from the hospital Aspirin 81mg once a day has been added to your home medications Discontinue your home dose of Clonidine. Closely monitor your blood pressure at home. Continue Metoprolol and Hydrochlorothiazide HOld metoprolol if you are noted to have Heart rate less than 60 hold metoprolol and hydrochlorothiazide if you are noted to have systolic blood pressure less than 100 Resume all other medications as prescribed by your primary care physician. Continue oral antibiotics for three more days. - Diet and Activity Activity: resume usual activities as tolerated Diet: low fat, low cholesterol, low salt diet Hospital course: Ms. Chambers is a 46 year old female with PMH of HTN, HLD who was admitted for evaluation of chest pain. She was noted to have leukocytosis and was currently undergoing treatment for URI. She was continued on abx. Her ACS work up was negative and IN was ruled out. She had a nuclear stress test that was negative for a ischemic perfusion defect. At this time patient is hemodynamically stable and reports of complete resolution of her presenting symptoms. She will be discharged to home with follow up with PCP. Pt and family present at bedside, demonstrate understanding of her diagnosis and agree with the discharge care and plan. - Time Spent with Patient Total time spent providing and/or coordinating discharge services: Less than 30 minutes - Constitutional Vitals: Temp Pulse Resp BP Pulse Ox 98.0 F 67 18 125/78 97 04/22/17 11:14 04/22/17 11:14 04/22/17 11:14 04/22/17 11:14 04/22/17 11:14 General appearance: Present: cooperative, A&O X 3, pleasant, no acute distress, obese, answers questions appropriately - Head Head exam: Present: atraumatic, normocephalic - Eye Eye exam: Present: conjuntiva pink, sclera anicteric - Respiratory Respiratory exam: Present: CTAB. Absent: respiratory distress, wheezes - Cardiovascular Cardiovascular exam: Present: RRR, +S1, +S2. Absent: diastolic murmur, gallop, rubs, systolic murmur - GI/Abdominal GI/Abdominal exam: Present: normal bowel sounds, soft, no peritoneal signs. Absent: distended, tenderness - Extremities Exam Extremities exam: Present: warm, radial pulses palpable and symmetrical. Absent : calf tenderness, cyanotic, pedal edema - Neurological Exam Neurological exam: Present: alert, oriented X3 - Psychiatric Psychiatric exam: Present: normal affect, normal mood
== END 2017-04-22 15:15 | disposition home or self-care (01) ==
LOC: EMEROO 04:39 → 2ANU 04:39 → SUATTDRO 08:08 → 2ANU 09:27
PROVIDERS: ADMIT Internal Medicine; ATTEND Internal Medicine

== ENCOUNTER 2017-08-10 03:51 | Observation (INO) ==
[2017-08-10] MEDS ORDERED: Aspirin 81 MG TAB.CHEW PO ONE (04:10)
--- NOTE | 2017-08-10 04:32 | Emergency Department Note ---
Disposition Clinical Impression: Chest pain Qualifiers: Chest pain type: unspecified Qualified Code(s): R07.9 - Chest pain, unspecified Disposition: Admitted As Inpatient Condition: Good Time of Disposition: 05:31 General Adult HPI - General Chief complaint: ED Chest Pain Stated complaint: HTN, CP Time Seen by Provider: 08/10/17 03:59 Source: patient Mode of arrival: ambulatory Limitations: no limitations Nursing Notes Reviewed: Yes Vital Signs Reviewed: Yes - History of Present Illness HPI Narrative: 46-year-old female with significant past medical history of hypertension presenting to the emergency chief complaint of chest pain. Patient states that at p.m. this evening she started having substernal chest pain with nausea and diaphoresis. It did not radiate. She did not try anything at home to alleviate the symptoms. Patient had stress test completed in April which was within normal limits. Patient states after the chest pain should begin taking her blood pressure frequently and noticed multiple high values. She became concerned and came to the emergency department for further evaluation. She denies any chest pain at this time. She states she does feel weak after the chest pain episode. She denies syncope or shortness of breath. Denies any recent illnesses. Pain Scale: 7 - Related Data Home Medications Medication Instructions Recorded Confirmed Albuterol Sulfate [Albuterol 90 mcg IH Q4HR PRN 03/27/15 04/20/17 Inhaler] Azelastine 1% Nasal [place] [Astelin] 1 spr NS BID 03/27/15 04/20/17 Calcium Carbonate/Vitamin D3 1 each PO DAILY 03/27/15 04/20/17 [Calcium 600 + D Tablet] Cetirizine HCl [Zyrtec] 10 mg PO DAILY 03/27/15 04/20/17 Cyclobenzaprine [Flexeril] 10 mg PO TID 03/27/15 04/20/17 EPINEPHrine PACK [EPINEPHrine] 0.3 mg IM ONCE PRN 03/27/15 04/20/17 Fluticasone Propionate Nasal 1 spray NS DAILY 03/27/15 04/20/17 [Flonase] Hydrochlorothiazide 25 mg PO DAILY 03/27/15 04/20/17 Mometasone Furoate [Asmanex] 110 mcg IH BID 03/27/15 04/20/17 Montelukast [Singulair] 10 mg PO DAILY 03/27/15 04/20/17 Potassium Chloride 20 meq PO DAILY 03/27/15 04/20/17 Ezetimibe [Zetia] 10 mg PO DAILY 04/20/17 04/20/17 Fenofibrate Nanocrystallized 160 mg PO DAILY 04/20/17 04/20/17 [Triglide] Gabapentin [Neurontin] 300 mg PO TID 04/20/17 04/20/17 Metoprolol XL (24 HR) Succ [Toprol 25 mg PO DAILY 04/20/17 04/20/17 Xl] Paroxetine HCl [Paxil] 40 mg PO DAILY 04/20/17 04/20/17 Ranitidine HCl [Acid Second Cutter] 150 mg PO BID 04/20/17 04/20/17 Previous Rx's Medication Instructions Recorded Docusate [Colace] 100 mg PO BID #60 capsule 03/27/15 Aspirin Enteric Coated [Aspirin EC] 81 mg PO DAILY #30 tablet. 04/22/17 levoFLOXacin [Levaquin] 750 mg PO Q24H #3 tablet 04/22/17 Ondansetron ODT [Zofran ODT] 4 mg SL Q4HR PRN #6 tab.rapdis 05/10/17 Hyoscyamine SL [Levsin SL] 0.125 mg SL TID #14 tab.subl 05/12/17 Ondansetron ODT [Zofran ODT] 4 mg SL Q6HR #14 tab.rapdis 05/12/17 Allergies Allergy/AdvReac Type Severity Reaction Status Date / Time diazepam [From Valium] Allergy Severe Swelling Verified 08/08/17 12:03 of Lip/Tongue/Throat duloxetine [From Cymbalta] Allergy Severe Swelling Verified 08/08/17 12:03 of Lip/Tongue/Throat Minocycline Allergy Severe Swelling Verified 08/08/17 12:03 of Lip/Tongue/Throat olanzapine [From Zyprexa] Allergy Severe Swelling Verified 08/08/17 12:03 of Lip/Tongue/Throat iodine Allergy Mild SWELLING, Verified 08/08/17 12:03 SOB methylprednisolone Allergy Mild SWELLING,SO Verified 08/08/17 12:03 [From Medrol] B hydrocodone Allergy Swelling Verified 08/08/17 12:03 of Lip/Tongue/Throat Iodinated Contrast- Oral and Allergy Swelling Verified 08/08/17 12:03 IV Dye of Lip/Tongue/Throat Onion Allergy Swelling Verified 08/08/17 12:03 of Lip/Tongue/Throat Oxycodone [From Percocet] AdvReac Mild Vomiting Verified 08/08/17 12:03 All systems ED: reviewed and negative except as stated. Cardiovascular: Reports: chest pain Gastrointestinal: Reports: nausea Neurological: Reports: weakness Past Medical History - Past Medical History Attestation: Yes The following information was validated with the patient. Medical history: Reports: asthma, GERD, hyperlipidemia, hypertension, other Surgical history: Reports: appendectomy, cholecystectomy, hysterectomy, orthopedic, other, BIBIANA/BSO, other Psychiatric history: Reports: anxiety, depression [employer] history: Reports: non-contributory, 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 - Social History Smoking Status: Current every day smoker Smokeless Tobacco Status: No Alcohol use: Reports: none Drug use: Reports: none Physical Exam - General Limitations: no limitations General appearance: alert, in no apparent distress - Head Head exam: atraumatic, normocephalic, normal inspection - Eye Eye exam: Present: normal appearance. Absent: scleral icterus, conjunctival injection - Neck Neck exam: Present: normal inspection, full ROM. Absent: tenderness, meningismus - Chest Chest inspection: Present: normal inspection, symmetric chest wall rise. Absent : tenderness, rash - Respiratory Respiratory exam: Present: normal lung sounds bilaterally. Absent: respiratory distress, wheezes - Cardiovascular Cardiovascular exam: Present: regular rate, normal rhythm, normal heart sounds - Abdominal Exam Abdominal exam: Present: soft, Non-Tender. Absent: distention, guarding, rebound - Extremities Exam Extremities exam: Present: normal inspection, full ROM - Neurological Exam Neurological exam: Present: alert, oriented X3 - Psychiatric Psychiatric exam: Present: normal affect, normal mood - Skin Skin exam: Present: warm, intact Course Course Narrative: 38-year-old female presenting to the emergency department chief complaint of chest pain. We will perform basic chest pain workup including CBC, BMP, troponin, EKG and chest x-ray. Disposition pending results. Patient is alert and oriented 3 in the room with stable vital signs at this time. She agrees with this plan. - Reevaluation(s) Reevaluation #1: All patient's lab work is coming back within normal limits. Due to patient's R score being greater than 3 she had decision-making with the patient was completed and she has decided to be admitted for further workup. I spoke with the hospitalist on-call Dr. Roche who agrees to accept the patient at this time. Patient is alert and oriented 3 with stable vital signs at this time. Vital Signs Temperature 98.4 F 08/10/17 03:55 Pulse Rate 68 08/10/17 03:55 Respiratory Rate 16 08/10/17 03:55 Blood Pressure 153/98 08/10/17 03:55 O2 Sat by Pulse Oximetry 98 08/10/17 03:55 Temperature 98.4 F 08/10/17 03:55 Pulse Rate 69 08/10/17 04:47 Respiratory Rate 14 08/10/17 05:41 Blood Pressure 139/99 08/10/17 05:41 O2 Sat by Pulse Oximetry 94 08/10/17 04:47 Oxygen Delivery Oxygen Delivery Room Air Medical Decision Making - Lab Data Result diagrams: 08/10/17 04:20 08/10/17 04:20 Lab Results 08/10/17 08/10/17 Range/Units 04:20 04:20 WBC 13.9 H (4.3-11.1) K/mcL RBC 5.12 H (3.82-4.97) M/mcL Hgb 14.4 (11.5-15.4) g/dL Hct 44.1 (35.3-44.9) % MCV 86.1 (83.0-100.0) fL MCH 28.1 (28.0-33.3) pg MCHC 32.7 (31.6-35.5) g/dL RDW 14.2 (11.5-14.5) % Plt Count 275 (140-400) K/mcL MPV 8.6 L (9.4-12.4) fL Immature Gran % 0.4 (0-4) % Seg Neutrophils % 56.5 % Lymphocytes % 37.0 % Monocytes % 4.6 % Eosinophils % 0.9 % Basophils % 0.6 % Neutrophils # 7.9 (1.6-8.9) K/mcL Lymphocytes # 5.2 H (0.6-4.6) K/mcL Monocytes # 0.6 (0.0-1.3) K/mcL Eosinophils # 0.1 (0.0-0.6) K/mcL Basophils # 0.1 (0.0-0.2) K/mcL Sodium 138 (136-145) mEq/L Potassium 3.8 (3.5-5.1) mEq/L Chloride 107 (98-107) mEq/L Carbon Dioxide 24 (23-29) mEq/L BUN 8 (6-20) mg/dL Creatinine 0.80 (0.60-1.20) mg/dL Est GFR ( Amer) > 60 (> 60) Est GFR (Non-Af Amer) > 60 (> 60) BUN/Creatinine Ratio 10 (6-26) Glucose 99 (70-105) mg/dL Calculated Osmolality 284 (280-300) Calcium 9.5 (8.6-10.3) mg/dL Troponin I < 0.03 (< 0.04) ng/mL - EKG Data EKG #1 EKG attestation: Yes I reviewed and interpreted this EKG. EKG results narrative: Sinus bradycardia. The 90s per minute. PA interval 153, QRS 76, QTC 395. No signs of acute ST segment elevation or ischemia noted. Attestation Statement - Attestation Attestation: I, Mayur Pinto, examined this patient and my medical decision-making was reviewed with the CERTIFIED PEDIATRIC NURSE PRACTITIONER/PA/Advanced Practice Nurse/Resident Physician. I agree with the documented findings, disposition and treatment plan as described except to the extent set forth below. 46-year-old female presents emergency Department with concerns of elevated blood pressure and chest pain. Patient states pain started around 6 PM which is 8 hours prior to arrival. She states the chest pain is described as a pressure, lasting 1-3 minutes at a time and then resolving without intervention. Patient states she was diaphoretic with these episodes of chest pain. She also stated that she became lightheaded and near syncopal prior to arrival to the emergency department. Initial troponin negative. EKG shows sinus bradycardia with a rate of 59 without evidence of STEMI. Patient has a heart score of 4. She will be admitted to the hospitalist for further care and evaluation to rule out ACS
[2017-08-10 04:46] LABS: Basophils # 0.1 K/mcL (0.0-0.2); Basophils % 0.6 %; Eosinophils # 0.1 K/mcL (0.0-0.6); Eosinophils % 0.9 %; Hematocrit 44.1 % (35.3-44.9); Hemoglobin 14.4 g/dL (11.5-15.4); Immature Granulocytes % 0.4 % (0-4); Lymphocytes # 5.2 K/mcL (0.6-4.6); Mean Corpuscular HGB Conc 32.7 g/dL (31.6-35.5); Mean Corpuscular Hemoglobin 28.1 pg (28.0-33.3); Mean Corpuscular Volume 86.1 fL (83.0-100.0); Mean Platelet Volume 8.6 fL (9.4-12.4); Monocytes # 0.6 K/mcL (0.0-1.3); Monocytes % 4.6 %; Neutrophils # 7.9 K/mcL (1.6-8.9); Platelet Count 275 K/mcL (140-400); Red Blood Count 5.12 M/mcL (3.82-4.97); Red Cell Distribution Width 14.2 % (11.5-14.5); Segmented Neutrophils % 56.5 %
[2017-08-10 04:56] LABS: BUN/Creatinine Ratio 10 (6-26); Blood Urea Nitrogen 8 mg/dL (6-20); Calcium 9.5 mg/dL (8.6-10.3); Carbon Dioxide 24 mEq/L (23-29); Chloride 107 mEq/L (98-107); Glucose 99 mg/dL (70-105); Osmolality,Calculated 284 (280-300); Potassium 3.8 mEq/L (3.5-5.1); Sodium 138 mEq/L (136-145); eGFR For African Americans > 60 (> 60); eGFR For Non-African Americans > 60 (> 60)
[2017-08-10 04:57] LABS: Troponin I < 0.03 ng/mL (< 0.04)
[2017-08-10] MEDS ORDERED: Naloxone 0.4 MG/ML INJ IVP PRN (08:19)
[2017-08-10] MEDS ORDERED: *HR* HYDROcodone/Acet 5/325 mg TABLET PO PRN (08:25)
[2017-08-10] MEDS ORDERED: Ondansetron 4 MG/2 ML VIAL IVP PRN (08:25)
[2017-08-10] MEDS ORDERED: *HR* Promethazine 25 MG/ML VIAL IVP PRN (08:25)
[2017-08-10] MEDS ORDERED: Nitroglycerin 0.4 MG TAB.SUBL SL PRN (08:38)
[2017-08-10] MEDS ORDERED: NON-FORMULARY MEDICATION 1 EACH EACH (Calcium Carbonate/Vitamin D3 [Calcium 600 + D Tablet PO SCH (09:00)
[2017-08-10] MEDS: Potassium Chloride Elixir 20 MEQ/15 ML UDC PO SCH (09:21)
[2017-08-10] MEDS: Acetaminophen 325 MG TABLET PO PRN ×2 (09:21→19:54)
[2017-08-10] MEDS: Fenofibrate 54 MG TABLET PO SCH (09:21)
[2017-08-10] MEDS: Gabapentin 300 MG CAPSULE PO SCH ×3 (09:21→19:55)
[2017-08-10] MEDS: Famotidine 20 MG TABLET PO SCH ×2 (09:21→19:55)
[2017-08-10] MEDS: Aspirin Enteric Coated 81 MG Tablet PO SCH (09:21)
[2017-08-10] MEDS: Fluticasone Propionate Nasal 50 MCG/SPRAY BOTTLE NS SCH (09:22)
[2017-08-10] MEDS: hydroCHLOROthiazide 25 MG TABLET PO SCH (09:22)
[2017-08-10] MEDS: (Ezetimibe [Zetia] 10 MG) PO SCH (09:22)
[2017-08-10] MEDS: Cholecalciferol (D-3) 1,000 UNIT TABLET PO SCH (09:22)
[2017-08-10] MEDS: Metoprolol XL (24 HR) Succ 25 MG TAB.ER.24H PO SCH (09:22)
[2017-08-10] MEDS: Azelastine 0.1% Nasal Spray 30 ML BOTTLE NS SCH ×2 (09:22→19:56)
[2017-08-10] MEDS: Loratadine 10 MG TABLET PO SCH (09:22)
--- NOTE | 2017-08-10 09:33 | Internal Med History&Physical ---
Date of Encounter: 08/10/17 Time of Encounter: 08:00 Assessment and Plan (1) Chest pain Current visit: Yes Status: Acute Will admit the pt into Tele for observation Will place pt on casket trimmer check serial troponin so far negative troponin EKG reviewed - showed NSR HR 59, No acute ischemic ST T changes. Chronic LVH changes noticed Cont ASA and Nitro PRN for pain Will check FLP in AM Reviewed her Stress test report from 04/2017.. Negative for ischemia However her symptoms are consistent with angina CP, recurrent episodes and she does have significant FH of CAD so consulted cardio for further eval.. Will defer to Card regarding further work up Qualifiers: Chest pain type: unspecified Qualified Code(s): R07.9 - Chest pain, unspecified (2) Leukocytosis Current visit: No Status: Acute Mostly reactive reviewed - chest x-ray did not show any acute infiltrates no further workup needed Qualifiers: Leukocytosis type: unspecified Qualified Code(s): D72.829 - Elevated white blood cell count, unspecified (3) Asthma Current visit: No Status: Chronic Not in exhibition resumed all home inhaler regimen Qualifiers: Asthma severity: mild Asthma persistence: intermittent Asthma complication type: uncomplicated Qualified Code(s): J45.20 - Mild intermittent asthma, uncomplicated (4) Chronic GERD Current visit: No Status: Chronic On PPI (5) Hypertension Current visit: No Status: Chronic Stable with home medications resumed all home medications Qualifiers: Hypertension type: essential hypertension Qualified Code(s): I10 - Essential (primary) hypertension (6) HLD (hyperlipidemia) Current visit: No Status: Chronic On stati Qualifiers: Hyperlipidemia type: pure hypercholesterolemia Qualified Code(s): E78.00 - Pure hypercholesterolemia, unspecified; E78.0 - Pure hypercholesterolemia (7) Tobacco dependence Current visit: Yes Status: Acute Counseled to quit smoking placed on nicotine patch Internal Medicine - H&P: HPI Chief complaint: Chest pain Admitted From: Emergency Dept Plans for Post Hospital Care: Home History of present illness: Ms. Chambers is a 46 year old female with medical history of asthma, GERD, HLD, and HTN presents to ED with chief complaint of chest pain. Pt stated she does have 5/10, intermittent chest pain, located left chest wall region, non radiating and more like sharp pain, associated with some nausea. She denied any SOB and ZHOU. She has been having this intermittent CP for a while now. She recently had a normal stress test here in April 2017. Pt does smoke 1PPD. Her father had [place] when he was 38. Past Med Surg Social Fam HX - Past Medical History Medical history: asthma, GERD, hyperlipidemia, hypertension, other Psychiatric history: anxiety, depression - Past Surgical History Surgical History: appendectomy, cholecystectomy, hysterectomy, orthopedic, other , BIBIANA/BSO, other - Social History Smoking Status: Current every day smoker Packs per day: 1/2 Smokeless Tobacco Status: No Alcohol use: none Drug use: none - Family History Father Family Member Ethnicity: Non- Living Status: Hx Family Cardiac Disorders: Yes (4-[place]) Hx Family Respiratory Disorders: No Hx Family Cancer: Yes (throat) Hx Family GI Disorders: No Hx Family Genitourinary Disorders: No Hx Family Endocrine Disorder: No Hx Family Musculoskeletal Disorders: No Hx Family Neuromuscular Disorders: No Hx Family Neurologic Disorders: No Hx Family HEENT Disorders: No Hx Family Autoimmune Disorders: No Hx Family Reproductive Disorders: No Hx Family Psychosocial Disorders: No Hx Family Medical Disorders: No Mother Family Member Ethnicity: Non- Living Status: Still Living Hx Family Cardiac Disorders: No Hx Family Respiratory Disorders: No Hx Family Cancer: No Hx Family GI Disorders: No Hx Family Genitourinary Disorders: No Hx Family Endocrine Disorder: No Hx Family Musculoskeletal Disorders: No Hx Family Neuromuscular Disorders: No Hx Family Neurologic Disorders: No Hx Family HEENT Disorders: No Hx Family Autoimmune Disorders: No Hx Family Reproductive Disorders: No Hx Family Psychosocial Disorders: No Hx Family Medical Disorders: No Sister Family Member Ethnicity: Non- Living Status: Still Living Hx Family Cardiac Disorders: No Hx Family Respiratory Disorders: Yes Hx Family Cancer: Yes Hx Family GI Disorders: No Hx Family Endocrine Disorder: No Hx Family Neuromuscular Disorders: No Hx Family Neurologic Disorders: No Hx Family HEENT Disorders: No Hx Family Autoimmune Disorders: No Internal Medicine - H&P: Meds Albuterol Sulfate [Albuterol Inhaler] 90 mcg IH Q4HR PRN 03/27/15 [History] Azelastine 1% Nasal [place] [Astelin] 1 spr NS BID 03/27/15 [History] Calcium Carbonate/Vitamin D3 [Calcium 600 + D Tablet] 1 each PO DAILY 03/27/15 [ History] Cetirizine HCl [Zyrtec] 10 mg PO DAILY 03/27/15 [History] Cyclobenzaprine [Flexeril] 10 mg PO TID 03/27/15 [History] EPINEPHrine PACK [EPINEPHrine] 0.3 mg IM ONCE PRN 03/27/15 [History] Fluticasone Propionate Nasal [Flonase] 1 spray NS DAILY 03/27/15 [History] Hydrochlorothiazide 25 mg PO DAILY 03/27/15 [History] Mometasone Furoate [Asmanex] 110 mcg IH BID 03/27/15 [History] Montelukast [Singulair] 10 mg PO DAILY 03/27/15 [History] Ezetimibe [Zetia] 10 mg PO DAILY 04/20/17 [History] Fenofibrate Nanocrystallized [Triglide] 160 mg PO DAILY 04/20/17 [History] Gabapentin [Neurontin] 300 mg PO TID 04/20/17 [History] Metoprolol XL (24 HR) Succ [Toprol Xl] 25 mg PO DAILY 04/20/17 [History] Paroxetine HCl [Paxil] 40 mg PO DAILY 04/20/17 [History] Ranitidine HCl [Acid Demolitionist] 150 mg PO BID 04/20/17 [History] Aspirin Enteric Coated [Aspirin EC] 81 mg PO DAILY #30 tablet. 04/22/17 [Rx] Potassium Chloride El[place]ir [Potassium Chloride] 10 meq PO DAILY 08/10/17 [History ] cloNIDine HCl [CloNIDine HCl] 0.1 mg PO TID PRN 08/10/17 [History] 3 Allergy/AdvReac Type Severity Reaction Status Date / Time diazepam [From Valium] Allergy Severe Swelling Verified 08/08/17 12:03 of Lip/Tongue/Throat duloxetine [From Cymbalta] Allergy Severe Swelling Verified 08/08/17 12:03 of Lip/Tongue/Throat Minocycline Allergy Severe Swelling Verified 08/08/17 12:03 of Lip/Tongue/Throat olanzapine [From Zyprexa] Allergy Severe Swelling Verified 08/08/17 12:03 of Lip/Tongue/Throat iodine Allergy Mild SWELLING, Verified 08/08/17 12:03 SOB methylprednisolone Allergy Mild SWELLING,SO Verified 08/08/17 12:03 [From Medrol] B hydrocodone Allergy Swelling Verified 08/08/17 12:03 of Lip/Tongue/Throat Iodinated Contrast- Oral and Allergy Swelling Verified 08/08/17 12:03 IV Dye of Lip/Tongue/Throat Onion Allergy Swelling Verified 08/08/17 12:03 of Lip/Tongue/Throat Oxycodone [From Percocet] AdvReac Mild Vomiting Verified 08/08/17 12:03 All Systems PM: A 10-system review of systems was performed and is negative for pertinent findings except as documented above in the HPI. Review of systems: All the systems are reviewed everything is benign except the systems and symptoms I mentioned in the history of present illness - Constitutional Vitals: Temp Pulse Resp BP Pulse Ox 97.6 F 62 16 129/91 93 08/10/17 06:47 08/10/17 06:47 08/10/17 06:47 08/10/17 06:47 08/10/17 06:47 General appearance: Present: A&O X 3, no acute distress, answers questions appropriately - Head Head exam: Present: atraumatic, normal inspection - Neck Neck exam general surgery: Present: supple - Respiratory Respiratory exam: Present: decreased breath sounds. Absent: chest wall tenderness, rales, respiratory distress, rhonchi, wheezes - Cardiovascular Cardiovascular exam: Present: RRR, +S1, +S2. Absent: systolic murmur, tachycardia - GI/Abdominal GI/Abdominal exam: Present: normal bowel sounds, soft. Absent: rebound, rigid, tenderness - Extremities Exam Extremities exam: Absent: calf tenderness, pedal edema, tenderness - Back Exam Back exam: Absent: CVA tenderness (L), CVA tenderness (R) - Neurological Exam Neurological exam: Present: alert, oriented X3 - Psychiatric Psychiatric exam: Present: normal affect, normal mood - Skin Skin exam: Absent: rash Internal Med - H&P Results - Labs CBC & Chem 7: 08/10/17 04:20 08/10/17 04:20
[2017-08-10] MEDS: Beclomethasone 80mcg MDI IH SCH ×2 (11:14→22:16)
[2017-08-10] MEDS: Nicotine 21 MG PATCH.TD24 TD SCH (11:26)
--- NOTE | 2017-08-10 12:10 | Cardiology Consult Note ---
Date of Encounter: 08/10/17 Time of Encounter: 11:30 Assessment and Plan (1) Hypertension Current Visit: No Status: Chronic Per cardiology: -Known HTN. -ON toprol, HCTZ and has clonidine PRN. -BP 170/110s at home. -Reports BPs have been high at home. -Will add norvasc 5mg po daily. -Patient encouraged to continue to monitor BP at home and keep log. Qualifiers: Hypertension type: essential hypertension Qualified Code(s): I10 - Essential (primary) hypertension (2) Chest pain Current Visit: No Status: Resolved Per cardiology: -Admitted with chest pain while hypertensive. -denies exertional chest pain. -Denies current chest pain. -Troponins negative x2. -Stress 04/2017 negative for ischemia or infarct. -TTE 04/2017 with LVEF preserved, no segmental wall motion abnormalities. -Discussed with patient regarding medical management versus LHC. At this time, patient prefers medical management with better BP controll and outpatient follow up. -Anticipate cardiology sign off after evaluated by Dr.John Mansfield. Will set up outpatietn follow up. Qualifiers: Chest pain type: unspecified Qualified Code(s): R07.9 - Chest pain, unspecified (3) HLD (hyperlipidemia) Current Visit: No Status: Chronic Per cardiology: -Known hyperlipidemia. -LDL 183 04/2017. -ON tricor. -Will started statin and continue to monitor in outpatient setting. Qualifiers: Hyperlipidemia type: mixed hyperlipidemia Qualified Code(s): E78.2 - Mixed hyperlipidemia (4) Tobacco dependence Current Visit: Yes Status: Chronic Per cardiology: -KNown tobacco abuse. -Smoking cessation education reviewed with pateint. Discussion w patient/family: The assessment and plan as outlined above was discussed with the patient who expressed understanding and agreement. All questions were answered. Thank you for involving us in the care of your patient. Please call with any questions. Discussed and reviewed with Dr.John Mansfield. History of Present Illness Consult date: 08/10/17 Requesting physician: Chevy Baker Consult reason: chest pain Chief complaint: chest pain, HTN History of present illness: Ms. Chambers is a 46 year old female with a relevant past medical history of HTN , hyperlipidemia, and current smoking. Patient states at home her BP was 170/ 115. Patient attempted to take her PRN clonidine for BP, however BP remained elevated. Patient then had some left sided chest achiness while at rest. Denies exertional chest pain. Denies shrotness of breath or increased fatigue. Patient reports chest pain resolved when her BP was controlled. Denies current chest pain, w Past Med Surg Social Fam HX - Past Medical History Attestation: Yes The following information was validated with the patient. Source: patient, old records reviewed Medical history: asthma, GERD, hyperlipidemia, hypertension, other Psychiatric history: anxiety, depression - Past Surgical History Surgical History: appendectomy, cholecystectomy, hysterectomy, orthopedic, other , BIBIANA/BSO, other - Social History Smoking Status: Current every day smoker Packs per day: 1/2 Smokeless Tobacco Status: No Alcohol use: none Drug use: none - Family History Father Family Member Ethnicity: Non- Living Status: Hx Family Cardiac Disorders: Yes (4-ID) Hx Family Respiratory Disorders: No Hx Family Cancer: Yes (throat) Hx Family GI Disorders: No Hx Family Genitourinary Disorders: No Hx Family Endocrine Disorder: No Hx Family Musculoskeletal Disorders: No Hx Family Neuromuscular Disorders: No Hx Family Neurologic Disorders: No Hx Family HEENT Disorders: No Hx Family Autoimmune Disorders: No Hx Family Reproductive Disorders: No Hx Family Psychosocial Disorders: No Hx Family Medical Disorders: No Mother Family Member Ethnicity: Non- Living Status: Still Living Hx Family Cardiac Disorders: No Hx Family Respiratory Disorders: No Hx Family Cancer: No Hx Family GI Disorders: No Hx Family Genitourinary Disorders: No Hx Family Endocrine Disorder: No Hx Family Musculoskeletal Disorders: No Hx Family Neuromuscular Disorders: No Hx Family Neurologic Disorders: No Hx Family HEENT Disorders: No Hx Family Autoimmune Disorders: No Hx Family Reproductive Disorders: No Hx Family Psychosocial Disorders: No Hx Family Medical Disorders: No Sister Family Member Ethnicity: Non- Living Status: Still Living Hx Family Cardiac Disorders: No Hx Family Respiratory Disorders: Yes Hx Family Cancer: Yes Hx Family GI Disorders: No Hx Family Endocrine Disorder: No Hx Family Neuromuscular Disorders: No Hx Family Neurologic Disorders: No Hx Family HEENT Disorders: No Hx Family Autoimmune Disorders: No Medications and Allergies Albuterol Sulfate [Albuterol Inhaler] 90 mcg IH Q4HR PRN 03/27/15 [History] Azelastine 1% Nasal [place] [Astelin] 1 spr NS BID 03/27/15 [History] Calcium Carbonate/Vitamin D3 [Calcium 600 + D Tablet] 1 each PO DAILY 03/27/15 [ History] Cetirizine HCl [Zyrtec] 10 mg PO DAILY 03/27/15 [History] Cyclobenzaprine [Flexeril] 10 mg PO TID 03/27/15 [History] EPINEPHrine PACK [EPINEPHrine] 0.3 mg IM ONCE PRN 03/27/15 [History] Fluticasone Propionate Nasal [Flonase] 1 spray NS DAILY 03/27/15 [History] Hydrochlorothiazide 25 mg PO DAILY 03/27/15 [History] Mometasone Furoate [Asmanex] 110 mcg IH BID 03/27/15 [History] Montelukast [Singulair] 10 mg PO DAILY 03/27/15 [History] Ezetimibe [Zetia] 10 mg PO DAILY 04/20/17 [History] Fenofibrate Nanocrystallized [Triglide] 160 mg PO DAILY 04/20/17 [History] Gabapentin [Neurontin] 300 mg PO TID 04/20/17 [History] Metoprolol XL (24 HR) Succ [Toprol Xl] 25 mg PO DAILY 04/20/17 [History] Paroxetine HCl [Paxil] 40 mg PO DAILY 04/20/17 [History] Ranitidine HCl [Acid Threader Operator] 150 mg PO BID 04/20/17 [History] Aspirin Enteric Coated [Aspirin EC] 81 mg PO DAILY #30 tablet. 04/22/17 [Rx] Potassium Chloride Elixir [Potassium Chloride] 10 meq PO DAILY 08/10/17 [History ] cloNIDine HCl [CloNIDine HCl] 0.1 mg PO TID PRN 08/10/17 [History] 3 Allergy/AdvReac Type Severity Reaction Status Date / Time diazepam [From Valium] Allergy Severe Swelling Verified 08/08/17 12:03 of Lip/Tongue/Throat duloxetine [From Cymbalta] Allergy Severe Swelling Verified 08/08/17 12:03 of Lip/Tongue/Throat Minocycline Allergy Severe Swelling Verified 08/08/17 12:03 of Lip/Tongue/Throat olanzapine [From Zyprexa] Allergy Severe Swelling Verified 08/08/17 12:03 of Lip/Tongue/Throat iodine Allergy Mild SWELLING, Verified 08/08/17 12:03 SOB methylprednisolone Allergy Mild SWELLING,SO Verified 08/08/17 12:03 [From Medrol] B hydrocodone Allergy Swelling Verified 08/08/17 12:03 of Lip/Tongue/Throat Iodinated Contrast- Oral and Allergy Swelling Verified 08/08/17 12:03 IV Dye of Lip/Tongue/Throat Onion Allergy Swelling Verified 08/08/17 12:03 of Lip/Tongue/Throat Oxycodone [From Percocet] AdvReac Mild Vomiting Verified 08/08/17 12:03 All Systems Review: The remainder of the systems were reviewed and are negative - Cardiovascular Cardiovascular: as per HPI, chest pain at rest Physical Examination Vital Signs, Last 4 Hours Temp Pulse Resp BP Pulse Ox 08/10/17 11:53 16 99 08/10/17 11:07 97.9 F 59 15 127/85 94 General: Conversant, No Apparent Distress HEENT: Atraumatic, Normocephaly, Mucus Membranes Moist Neck: No JVD, Normal carotid pulses Cardiac: Reg Rate and Rhythm, Normal S1 and S2, No Murmur Lungs: Normal Breath Sounds, No Wheeze, Rales, Rhonchi Neuro: Alert and responsive, No focal deficits noted Abdomen: Soft, Non-Tender Skin: No rashes noted on visualized skin Musculoskeletal: No Chest Wall Tenderness Extremities: No Clubbing, No Cyanosis, No Edema, Normal Pulses Results 08/10/17 04:20 08/10/17 04:20 Lab Results Impressions Chest X-Ray 08/10/17 04:10 IMPRESSION: Negative portable chest. D/ / Luther Mckee MD / Luther Mckee MD Interpreting Provider: Luther Mckee MD Active Medications Acetaminophen (Tylenol) 650 mg PO Q6HR PRN PRN Reason: Mild Pain/Fever Stop: 02/09/18 08:26 Last Admin: 08/10/17 09:21 Dose: 650 mg Albuterol Sulfate (Albuterol Inhaler) 1 puff IH [id number] PRN PRN Reason: Shortness Of Breath Stop: 02/09/18 12:01 Amlodipine Besylate (Norvasc) 5 mg PO DAILY DONNA PRN Reason: Protocol Stop: 09/07/18 12:01 Aspirin (Aspirin Ec) 81 mg PO DAILY [facility] Stop: 02/09/18 09:01 Last Admin: 08/10/17 09:21 Dose: 81 mg Azelastine HCl (Astelin) 1 spray NS BID [facility] Stop: 02/09/18 09:01 Last Admin: 08/10/17 09:22 Dose: 1 spray Beclomethasone Dipropionate (Qvar 80 Mcg) 1 puff IH BIDR [facility] Stop: 02/09/18 10:01 Last Admin: 08/10/17 11:14 Dose: 1 puff Calcium Carbonate (Tums) 500 mg PO DAILY [facility] PRN Reason: Protocol Stop: 02/09/18 09:01 Last Admin: 08/10/17 09:21 Dose: 500 mg Cyclobenzaprine HCl (Flexeril) 10 mg PO TID PRN PRN Reason: spasms Stop: 02/09/18 08:40 Docusate Sodium (Colace) 100 mg PO BID PRN PRN Reason: Constipation Stop: 02/09/18 09:01 Famotidine (Pepcid) 20 mg PO BID [facility] Stop: 02/09/18 09:01 Last Admin: 08/10/17 09:21 Dose: 20 mg Fenofibrate (Tricor) 162 mg PO DAILY [facility] Stop: 02/09/18 09:01 Last Admin: 08/10/17 09:21 Dose: 162 mg Fentanyl Citrate (Fentanyl (Pf)) 25 mcg IVP Q6HR PRN PRN Reason: Moderate Pain Stop: 02/09/18 09:05 Fluticasone Propionate (Flonase) 50 mcg NS DAILY [facility] PRN Reason: Protocol Stop: 02/09/18 09:01 Last Admin: 08/10/17 09:22 Dose: 50 mcg Gabapentin (Neurontin) 300 mg PO TID [facility] Stop: 02/09/18 09:01 Last Admin: 08/10/17 09:21 Dose: 300 mg Hydrochlorothiazide (Hydrochlorothiazide) 25 mg PO DAILY [facility] PRN Reason: Protocol Stop: 02/09/18 09:01 Last Admin: 08/10/17 09:22 Dose: 25 mg Loratadine (Claritin) 10 mg PO DAILY [facility] Stop: 02/09/18 09:01 Last Admin: 08/10/17 09:22 Dose: 10 mg Metoprolol Succinate (Toprol Xl) 25 mg PO DAILY [facility] Stop: 02/09/18 09:01 Last Admin: 08/10/17 09:22 Dose: 25 mg Montelukast Sodium (Singulair) 10 mg PO DAILY [facility] Stop: 02/09/18 09:01 Last Admin: 08/10/17 09:22 Dose: 10 mg Naloxone HCl (Narcan) 0.4 mg IVP Q2MIN PRN PRN Reason: SEE COMMENTS Stop: 02/09/18 08:20 Nicotine (Nicoderm) 21 mg TD DAILY DONNA PRN Reason: Protocol Stop: 02/09/18 09:46 Last Admin: 08/10/17 11:26 Dose: 21 mg Nitroglycerin (Nitroglycerin) 0.4 mg SL Q5MIN PRN PRN Reason: Chest Pain Stop: 02/09/18 08:39 Omeprazole (Prilosec) 20 mg PO DAILY@0630 DONNA PRN Reason: Protocol Stop: 02/10/18 06:31 Ondansetron HCl (Zofran) 4 mg IVP Q6HR PRN PRN Reason: Nausea And Vomiting Stop: 02/09/18 08:26 Paroxetine HCl (Paxil) 40 mg PO DAILY [facility] Stop: 02/09/18 09:01 Last Admin: 08/10/17 09:21 Dose: 40 mg Pharmacy Profile Note (Patient Taking Own Medication) 0 each PO DAILY [facility] Stop: 02/09/18 09:01 Last Admin: 08/10/17 09:22 Dose: Not Given Potassium Chloride (Potassium Chloride) 10 meq PO DAILY [facility] Stop: 02/09/18 09:01 Last Admin: 08/10/17 09:21 Dose: 10 meq Promethazine HCl (Phenergan) 12.5 mg IVP Q6HR PRN PRN Reason: Nausea And Vomiting Stop: 02/09/18 08:26 Vitamin D (Vitamin D) 1,000 unit PO DAILY [facility] Stop: 02/09/18 09:01 Last Admin: 08/10/17 09:22 Dose: 1,000 unit Laboratory Tests 04/21/17 05/12/17 08/10/17 02:43 13:35 04:20 WBC 13.9 H Hgb 14.4 Creatinine AST 17 ALT 15 Troponin I LDL Cholesterol, Calc 183 H 08/10/17 08/10/17 04:20 10:45 WBC Hgb Creatinine 0.80 AST ALT Troponin I < 0.03 < 0.03 LDL Cholesterol, Calc - Imaging and Cardiology Chest Xray: report reviewed Stress Test: report reviewed Echo: report reviewed - EKG Interpretation EKG results cardiology: personally reviewed (ECG with SB.), other (Telemetry reviewed with average HR previous 12 hours noted to be 56, SB.) Consult Discharge Plan - Plan Referrals: Michaelle William, SEARCH COORDINATOR [Primary Care Provider] -
[2017-08-10] MEDS: amLODIPine 5 MG TABLET PO SCH (12:34)
[2017-08-10] MEDS: *HR* FentaNYL (PF) 100 MCG/2 ML VIAL IVP PRN (17:42)
[2017-08-11] MEDS: *HR* FentaNYL (PF) 100 MCG/2 ML VIAL IVP PRN (04:00)
[2017-08-11 05:30] LABS: Chol/HDL Ratio 9.4 (0-4.9)
[2017-08-11 06:45] VITALS: BP 143/85
[2017-08-11] MEDS: Beclomethasone 80mcg MDI IH SCH (07:53)
[2017-08-11] MEDS: Metoprolol XL (24 HR) Succ 25 MG TAB.ER.24H PO SCH (09:04)
[2017-08-11] MEDS: Fenofibrate 54 MG TABLET PO SCH (09:04)
[2017-08-11] MEDS: Azelastine 0.1% Nasal Spray 30 ML BOTTLE NS SCH (09:04)
[2017-08-11] MEDS: Fluticasone Propionate Nasal 50 MCG/SPRAY BOTTLE NS SCH (09:04)
[2017-08-11] MEDS: Loratadine 10 MG TABLET PO SCH (09:04)
[2017-08-11] MEDS: Acetaminophen 325 MG TABLET PO PRN (09:04)
[2017-08-11] MEDS: Potassium Chloride Elixir 20 MEQ/15 ML UDC PO SCH (09:04)
[2017-08-11] MEDS: Cholecalciferol (D-3) 1,000 UNIT TABLET PO SCH (09:05)
[2017-08-11] MEDS: (Ezetimibe [Zetia] 10 MG) PO SCH (09:05)
[2017-08-11] MEDS: Aspirin Enteric Coated 81 MG Tablet PO SCH (09:05)
[2017-08-11] MEDS: Nicotine 21 MG PATCH.TD24 TD SCH (09:05)
[2017-08-11] MEDS: Famotidine 20 MG TABLET PO SCH (09:05)
[2017-08-11] MEDS: Gabapentin 300 MG CAPSULE PO SCH (09:05)
[2017-08-11] MEDS: hydroCHLOROthiazide 25 MG TABLET PO SCH (09:05)
[2017-08-11] MEDS: amLODIPine 5 MG TABLET PO SCH (09:05)
[2017-08-11] MEDS ORDERED: Acetaminophen/Aspirin/Caffeine TABLET PO PRN (10:30)
--- NOTE | 2017-08-11 11:28 | Discharge Summary ---
- NOTES TO OUTPATIENT PROVIDER Notes to Outpatient Provider: Patient has uncontrolled anxiety and she will follow-up with her primary care physician. Was provided with a prescription of Xanax until she can be seen by her PCP Date of Encounter: 08/11/17 Time of Encounter: 11:23 - Discharge Diagnosis (1) Asthma Priority: Primary Status: Chronic Comments: Continue home medications not in exacerbation Qualifiers: Asthma severity: mild Asthma persistence: intermittent Asthma complication type: uncomplicated Qualified Code(s): J45.20 - Mild intermittent asthma, uncomplicated (2) Chest pain Priority: Primary Status: Acute Comments: Troponins were negative Cardiology consult and saw the patient she had a recent stress test in 2016 which was negative for ischemia and they asked her if she were to left heart catheter and she declined at this time she preferred medical management Her chest pain was accompanied by hypertensive blood pressure She denied exertional chest pain or current chest pain. Echo 2016 with LVEF was preserved and no segmental wall motion abnormalities. Cardiology recommends better blood pressure control and outpatient follow-up. Qualifiers: Chest pain type: unspecified Qualified Code(s): R07.9 - Chest pain, unspecified (3) Chronic GERD Priority: Primary Status: Chronic Comments: Continue home medication (4) Hypertension Priority: Primary Status: Chronic Comments: Take medications as prescribed and we will add Norvasc 5 mg daily as per cardiology's recommendations Explained the importance of the patient of taking her medications as prescribed Qualifiers: Hypertension type: essential hypertension Qualified Code(s): I10 - Essential (primary) hypertension (5) Leukocytosis Priority: Primary Status: Acute Comments: Likely reactive, chest x-ray without any infiltrates, no further workup Qualifiers: Leukocytosis type: unspecified Qualified Code(s): D72.829 - Elevated white blood cell count, unspecified (6) Tobacco dependence Priority: Primary Status: Chronic Comments: Back a cessation advised (7) Anxiety Priority: Primary Status: Acute Comments: Patient received a phone call from her estate planning attorney per the nurses and became very agitated, complaining of chest pain and shortness of breath. I evaluated the patient and she was given Mr. a panic attack. She was given a dose of Ativan by mouth. Discharged on Xanax low dose with a short course prescription until she can be seen by her PCP I indurated with her that she really needed to follow -up with her primary care doctor to control his problem is contributing to all of her problems. Also advised some reduction of anxiety activity such as yoga. Hospital course: Ms. Chambers is a 46 year old female admitted with chest pain and high blood pressure. Please refer to the assessment and plan for further details of this note Discharge discussed with: patient, nurse, cycle consultant - Time Spent with Patient Total time spent providing and/or coordinating discharge services: Less than 30 minutes - Discharge Medications Prescriptions: ALPRAZolam [Xanax 0.25 MG Tablet] 0.25 mg PO BID PRN 5 Days #10 tablet PRN Reason: Anxiety amLODIPine [Norvasc] 5 mg PO DAILY #30 tablet Butalb/Acetaminophen/Caffeine [Fioricet 50-300-40 mg Capsule] 1 each PO DAILY PRN #12 capsule PRN Reason: Headache Home Medications: Albuterol Sulfate [Albuterol Inhaler] 90 mcg IH Q4HR PRN 03/27/15 [History] Azelastine 1% Nasal [place] [Astelin] 1 spr NS BID 03/27/15 [History] Calcium Carbonate/Vitamin D3 [Calcium 600 + D Tablet] 1 each PO DAILY 03/27/15 [ History] Cetirizine HCl [Zyrtec] 10 mg PO DAILY 03/27/15 [History] Cyclobenzaprine [Flexeril] 10 mg PO TID 03/27/15 [History] EPINEPHrine PACK [EPINEPHrine] 0.3 mg IM ONCE PRN 03/27/15 [History] Fluticasone Propionate Nasal [Flonase] 1 spray NS DAILY 03/27/15 [History] Hydrochlorothiazide 25 mg PO DAILY 03/27/15 [History] Mometasone Furoate [Asmanex] 110 mcg IH BID 03/27/15 [History] Montelukast [Singulair] 10 mg PO DAILY 03/27/15 [History] Ezetimibe [Zetia] 10 mg PO DAILY 04/20/17 [History] Fenofibrate Nanocrystallized [Triglide] 160 mg PO DAILY 04/20/17 [History] Gabapentin [Neurontin] 300 mg PO TID 04/20/17 [History] Metoprolol XL (24 HR) Succ [Toprol Xl] 25 mg PO DAILY 04/20/17 [History] Paroxetine HCl [Paxil] 40 mg PO DAILY 04/20/17 [History] Ranitidine HCl [Acid Stogy Roller] 150 mg PO BID 04/20/17 [History] Aspirin Enteric Coated [Aspirin EC] 81 mg PO DAILY #30 tablet. 04/22/17 [Rx] Potassium Chloride Elixir [Potassium Chloride] 10 meq PO DAILY 08/10/17 [History ] cloNIDine HCl [CloNIDine HCl] 0.1 mg PO TID PRN 08/10/17 [History] ALPRAZolam [Xanax 0.25 MG Tablet] 0.25 mg PO BID PRN 5 Days #10 tablet 08/11/17 [Rx] Butalb/Acetaminophen/Caffeine [Fioricet 50-300-40 mg Capsule] 1 each PO DAILY PRN #12 capsule 08/11/17 [Rx] amLODIPine [Norvasc] 5 mg PO DAILY #30 tablet 08/11/17 [Rx] Allergies/Adverse Reactions: 3 Allergy/AdvReac Type Severity Reaction Status Date / Time diazepam [From Valium] Allergy Severe Swelling Verified 08/08/17 12:03 of Lip/Tongue/Throat duloxetine [From Cymbalta] Allergy Severe Swelling Verified 08/08/17 12:03 of Lip/Tongue/Throat Minocycline Allergy Severe Swelling Verified 08/08/17 12:03 of Lip/Tongue/Throat olanzapine [From Zyprexa] Allergy Severe Swelling Verified 08/08/17 12:03 of Lip/Tongue/Throat iodine Allergy Mild SWELLING, Verified 08/08/17 12:03 SOB methylprednisolone Allergy Mild SWELLING,SO Verified 08/08/17 12:03 [From Medrol] B hydrocodone Allergy Swelling Verified 08/08/17 12:03 of Lip/Tongue/Throat Iodinated Contrast- Oral and Allergy Swelling Verified 08/08/17 12:03 IV Dye of Lip/Tongue/Throat Onion Allergy Swelling Verified 08/08/17 12:03 of Lip/Tongue/Throat Oxycodone [From Percocet] AdvReac Mild Vomiting Verified 08/08/17 12:03 Date of admission: 08/10/17 05:33 Primary care physician: Michaelle William CNP Consults: 08/10/17 08:38 Consult to Cardiology [CONS] Routine Comment: Consulting Provider: Cardiology [place] Reason for Consult: Recurrent CP Time Notified: 08:38 Call Completed: Yes Discharging clinician: Alva Anne Anticipated date of discharge: 08/11/17 - Constitutional Vitals: Temp Pulse Resp BP Pulse Ox 98.0 F 51 18 143/85 94 08/11/17 06:44 08/11/17 06:44 08/11/17 07:54 08/11/17 06:44 08/11/17 07:54 General appearance: Present: A&O X 3, no acute distress, answers questions appropriately - Head Head exam: Present: atraumatic, normocephalic - Eye Eye exam: Present: PERRL, conjuntiva pink, sclera anicteric Pupils: Present: PERRL - Neck Neck exam general surgery: Present: supple, trachea midline. Absent: lymphadenopathy - Respiratory Respiratory exam: Present: CTAB. Absent: accessory muscle use, rales, rhonchi, wheezes - Cardiovascular Cardiovascular exam: Present: RRR, +S1, +S2. Absent: diastolic murmur, gallop, rubs, systolic murmur - GI/Abdominal GI/Abdominal exam: Present: normal bowel sounds, soft, no peritoneal signs. Absent: distended, tenderness - Extremities Exam Extremities exam: Present: warm, radial pulses palpable and symmetrical. Absent : calf tenderness, cyanotic, pedal edema - Neurological Exam Neurological exam: Present: alert, CN II-XII intact, oriented X3, no focal deficits. Absent: pronater drift, facial droop, speech deficit - Psychiatric Psychiatric exam: Present: agitated, anxious - Skin Skin exam: Present: dry, intact, normal color, warm - Patient Status Disposition: Home, Self-Care Condition: Good Functional capacity at discharge: independent ambulation Overall status at discharge: patient is back to baseline - Discharge Instructions Instructions: Amlodipine (By mouth), Angina (DC), Chest Pain (DC), Hypertension (DC) Follow Up With: Michaelle William CNP [Primary Care Provider] - 08/17/17 3:00 pm Mayur Mansfield MD [Partnered Physician] - (Cardiology office will contact you with hospital follow up.) - Diet and Activity Activity: resume usual activities as tolerated Diet: advance to your usual diet
[2017-08-11] MEDS ORDERED: *HR* LORazepam 0.5 MG TABLET PO ONE (12:16)
[2017-08-11] MEDS ORDERED: Acetaminophen/Butalbital/CaffeineTABLET PO PRN (12:59)
--- NOTE | 2017-08-11 16:50 | Electrocardiograph Report ---
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
--- NOTE | 2017-08-12 12:37 | Electrocardiograph Report ---
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
== END 2017-08-11 15:15 | disposition home or self-care (01) ==
LOC: EMEROO 03:51 → 3BNU 03:51
PROVIDERS: ADMIT Family Medicine; ATTEND Registered Nurse

== ENCOUNTER 2017-08-12 03:18 | Observation (INO) ==
[2017-08-12] MEDS ORDERED: 0.9 % Sodium Chloride 1,000 ML IVC ONE ×3 (03:30→05:49)
--- NOTE | 2017-08-12 03:43 | Emergency Department Note ---
Disposition Clinical Impression: Right flank pain Hypotension Qualifiers: Hypotension type: unspecified hypotension type Qualified Code(s): I95.9 - Hypotension, unspecified Disposition: Admitted As Inpatient Condition: Fair Referrals: Michaelle William CNP [Primary Care Provider] - Forms: ED Satisfaction Letter, Work/School Release Time of Disposition: 06:28 General Adult HPI - General Chief complaint: ED General Medical Stated complaint: low bp Time Seen by Provider: 08/12/17 03:27 Source: patient Limitations: no limitations Nursing Notes Reviewed: Yes Vital Signs Reviewed: Yes - History of Present Illness HPI Narrative: 46-year-old female presents with low blood pressure, and "feeling drunk". She mentioned she was recently discharged from the hospital earlier today after she was admitted for chest pain and hypertension. She describes having additional blood pressure medications prescribed to her, as well as Xanax for her anxiety. Approximately 2 hours prior to arrival, she took one of the Xanax is and now complains of low blood pressure which Pain Scale: 5 - Related Data Home Medications Medication Instructions Recorded Confirmed Albuterol Sulfate [Albuterol 90 mcg IH Q4HR PRN 03/27/15 08/10/17 Inhaler] Azelastine 1% Nasal [place] [Astelin] 1 spr NS BID 03/27/15 08/10/17 Calcium Carbonate/Vitamin D3 1 each PO DAILY 03/27/15 08/10/17 [Calcium 600 + D Tablet] Cetirizine HCl [Zyrtec] 10 mg PO DAILY 03/27/15 08/10/17 Cyclobenzaprine [Flexeril] 10 mg PO TID 03/27/15 08/10/17 EPINEPHrine PACK [EPINEPHrine] 0.3 mg IM ONCE PRN 03/27/15 08/10/17 Fluticasone Propionate Nasal 1 spray NS DAILY 03/27/15 08/10/17 [Flonase] Hydrochlorothiazide 25 mg PO DAILY 03/27/15 08/10/17 Mometasone Furoate [Asmanex] 110 mcg IH BID 03/27/15 08/10/17 Montelukast [Singulair] 10 mg PO DAILY 03/27/15 08/10/17 Ezetimibe [Zetia] 10 mg PO DAILY 04/20/17 08/10/17 Fenofibrate Nanocrystallized 160 mg PO DAILY 04/20/17 08/10/17 [Triglide] Gabapentin [Neurontin] 300 mg PO TID 04/20/17 08/10/17 Metoprolol XL (24 HR) Succ [Toprol 25 mg PO DAILY 04/20/17 08/10/17 Xl] Paroxetine HCl [Paxil] 40 mg PO DAILY 04/20/17 08/10/17 Ranitidine HCl [Acid Shop Tailor] 150 mg PO BID 04/20/17 08/10/17 Potassium Chloride Elixir 10 meq PO DAILY 08/10/17 08/10/17 [Potassium Chloride] cloNIDine HCl [CloNIDine HCl] 0.1 mg PO TID PRN 08/10/17 08/10/17 Previous Rx's Medication Instructions Recorded Aspirin Enteric Coated [Aspirin EC] 81 mg PO DAILY #30 tablet. 04/22/17 ALPRAZolam [Xanax 0.25 MG Tablet] 0.25 mg PO BID PRN 5 Days #10 08/11/17 tablet Butalb/Acetaminophen/Caffeine 1 each PO DAILY PRN #12 capsule 08/11/17 [Fioricet 50-300-40 mg Capsule] amLODIPine [Norvasc] 5 mg PO DAILY #30 tablet 08/11/17 Allergies Allergy/AdvReac Type Severity Reaction Status Date / Time diazepam [From Valium] Allergy Severe Swelling Verified 08/08/17 12:03 of Lip/Tongue/Throat duloxetine [From Cymbalta] Allergy Severe Swelling Verified 08/08/17 12:03 of Lip/Tongue/Throat Minocycline Allergy Severe Swelling Verified 08/08/17 12:03 of Lip/Tongue/Throat olanzapine [From Zyprexa] Allergy Severe Swelling Verified 08/08/17 12:03 of Lip/Tongue/Throat iodine Allergy Mild SWELLING, Verified 08/08/17 12:03 SOB methylprednisolone Allergy Mild SWELLING,SO Verified 08/08/17 12:03 [From Medrol] B hydrocodone Allergy Swelling Verified 08/08/17 12:03 of Lip/Tongue/Throat Iodinated Contrast- Oral and Allergy Swelling Verified 08/08/17 12:03 IV Dye of Lip/Tongue/Throat Onion Allergy Swelling Verified 08/08/17 12:03 of Lip/Tongue/Throat Oxycodone [From Percocet] AdvReac Mild Vomiting Verified 08/08/17 12:03 All systems ED: reviewed and negative except as stated. Review of Systems: As Per HPI Constitutional: Denies: fever, chills Eyes: Denies: eye pain ENT ED: Denies: ear pain Cardiovascular: Denies: chest pain, palpitations, dyspnea on exertion Respiratory: Denies: dyspnea Gastrointestinal: Denies: abdominal pain, nausea, vomiting Genitourinary: Denies: dysuria Musculoskeletal: Denies: back pain Integumentary: Denies: rash Neurological: Denies: headache, weakness, numbness, paresthesias Psychiatric: Denies: anxiety Endocrine: Denies: fatigue Hematological/Lymphatic: Denies: easy bleeding Allergic/Immunologic: Denies: facial swelling Past Medical History - Past Medical History Medical history: Reports: asthma, GERD, hyperlipidemia, hypertension, other Surgical history: Reports: appendectomy, cholecystectomy, hysterectomy, orthopedic, other, BIBIANA/BSO, other Psychiatric history: Reports: anxiety, depression 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 Absent: conjunctival injection - ENT ENT exam: normal oropharynx - Neck Neck exam: Present: full ROM - Chest Chest inspection: Present: normal inspection. Absent: symmetric chest wall rise - Respiratory Respiratory exam: Present: normal lung sounds bilaterally. Absent: respiratory distress - Cardiovascular Cardiovascular exam: Present: regular rate, normal rhythm - Abdominal Exam Abdominal exam: Present: soft, Non-Tender - Extremities Exam Extremities exam: Present: normal inspection, full ROM, normal capillary refill - Back Exam Back exam: Present: full ROM - Neurological Exam Neurological exam: Present: alert, oriented X3 - Psychiatric Psychiatric exam: Present: normal affect, normal mood - Skin Skin exam: Present: warm, dry, intact, normal color. Absent: rash, cyanosis, diaphoresis Course Course Narrative: 38-year-old female presents with hypotension, and adverse side effects of Xanax. Patient was recently discharged from hospital earlier today for hypertension, chest pain workup. She was evaluated by cardiology at that time. She was started on new BP medications. She is also given Xanax for her anxiety. Symptoms started after she had taken Xanax. Patient seen and examined. she is hypotensive. Fluids ordered. She is in no acute distress. Denies any chest pain, bleeding, syncope, vertigo, headache. Workup initiated. - Reevaluation(s) Reevaluation #1: She had requested pain medication for her right-sided flank pain. She describes as needed. On reexamination patient does have some mild CVA tenderness. She denied any abdominal examination tenderness with palpation. Elevation of white blood cell count since previous, patient denies any steroid use. Hypokalemic. Potassium ordered. Patient's blood pressure had responded to 1 L saline , but is now 98/63. Will continue fluids. Discussed with Dr. Hernandez who agrees for CTA abdomin. Time: 04:57 Reevaluation #2: CTA of abd/pelvis has been ordered, the patient has dated history of allergies to contrast dye, she states that she has no issues with pre-medicated with Benadryl, and prednisone. Time: 05:18 Reevaluation #3: Pt is responding to fluids, BP now 112/76. Pt resting comfortably asleep in exam bed. CTA show no acute abnormality of abd/pelvis. Due to shift change care of this patient will be transferred over to day shift provider Myla Kenyon CNP. Pt discussed with Myla. At this point I feel pt may need admission for re- evaluation of leukocytosis. However, please see Myla's documentation for details and final disposition. Time: 06:15 Vital Signs Temperature 97.9 F 08/12/17 03:19 Pulse Rate 83 08/12/17 03:19 Respiratory Rate 20 08/12/17 03:19 Blood Pressure 94/65 08/12/17 03:19 O2 Sat by Pulse Oximetry 99 08/12/17 03:19 Temperature 97.9 F 08/12/17 03:19 Pulse Rate 62 08/12/17 04:22 Respiratory Rate 18 08/12/17 04:22 Blood Pressure 98/63 08/12/17 04:22 O2 Sat by Pulse Oximetry 95 08/12/17 04:22 Oxygen Delivery Oxygen Delivery Room Air Medical Decision Making - MDM Narrative Medical decision making narrative: Laboratory Tests 08/12/17 08/12/17 08/12/17 03:30 03:30 04:09 WBC 28.2 H D RBC 5.30 H Hgb 14.9 Hct 46.2 H MCV 87.2 MCH 28.1 MCHC 32.3 RDW 14.3 Plt Count 279 MPV 8.6 L Immature Gran % 1.2 Seg Neutrophils % 74.7 Lymphocytes % 19.9 Monocytes % 3.3 Eosinophils % 0.5 Basophils % 0.4 Neutrophils # 21.1 H Lymphocytes # 5.6 H Monocytes # 0.9 Eosinophils # 0.1 Basophils # 0.1 Reactive Lymphocytes Present A Toxic Granulation Present A Platelet Estimate Normal Sodium 134 L Potassium 3.0 L Chloride 101 Carbon Dioxide 26 BUN 15 Creatinine 1.04 Est GFR ( Amer) > 60 Est GFR (Non-Af Amer) 57 L BUN/Creatinine Ratio 14 Glucose 138 H Calculated Osmolality 281 Calcium 9.5 Urine Color Dark Yellow Urine Clarity Cloudy A Urine pH 6.0 Ur Specific [place] 1.029 H Urine Protein 30 H Urine Glucose (UA) Normal Urine Ketones Trace H Urine Blood Moderate H Urine Nitrite Negative Urine Bilirubin Small H Urine Urobilinogen Normal Ur Leukocyte Esterase Negative Urine Microscopic RBC 0-3 Urine Microscopic WBC 5-15 H Ur Squamous Epith Cells Many H Urine Bacteria Moderate H Hyaline Casts Few Urine Mucus Few Ur Culture Indicated? NO Chest X-Ray 08/12/17 03:30 IMPRESSION: Negative portable chest. D/ / Zane Barbosa MD / Zane Barbosa MD Interpreting Provider: Zane Barbosa MD Abdomen/Pelvis CTA 08/12/17 04:45 IMPRESSION: No acute abnormality identified in the abdomen or pelvis. D/ / Zane Barbosa MD / Zane Barbosa MD Interpreting Provider: Zane Barbosa MD - Lab Data Lab results reviewed: Yes I reviewed the patient's lab results. Result diagrams: 08/12/17 03:30 08/12/17 03:30 Lab Results 08/12/17 08/12/17 08/12/17 Range/Units 03:30 03:30 04:09 WBC 28.2 H D (4.3-11.1) K/mcL RBC 5.30 H (3.82-4.97) M/mcL Hgb 14.9 (11.5-15.4) g/dL Hct 46.2 H (35.3-44.9) % MCV 87.2 (83.0-100.0) fL MCH 28.1 (28.0-33.3) pg MCHC 32.3 (31.6-35.5) g/dL RDW 14.3 (11.5-14.5) % Plt Count 279 (140-400) K/mcL MPV 8.6 L (9.4-12.4) fL Immature Gran % 1.2 (0-4) % Seg Neutrophils % 74.7 % Lymphocytes % 19.9 % Monocytes % 3.3 % Eosinophils % 0.5 % Basophils % 0.4 % Neutrophils # 21.1 H (1.6-8.9) K/mcL Lymphocytes # 5.6 H (0.6-4.6) K/mcL Monocytes # 0.9 (0.0-1.3) K/mcL Eosinophils # 0.1 (0.0-0.6) K/mcL Basophils # 0.1 (0.0-0.2) K/mcL Reactive Lymphocytes Present A (Not Present) Toxic Granulation Present A (Not Present) Platelet Estimate Normal (Normal) Sodium 134 L (136-145) mEq/L Potassium 3.0 L (3.5-5.1) mEq/L Chloride 101 (98-107) mEq/L Carbon Dioxide 26 (23-29) mEq/L BUN 15 (6-20) mg/dL Creatinine 1.04 (0.60-1.20) mg/dL Est GFR ( Amer) > 60 (> 60) Est GFR (Non-Af Amer) 57 L (> 60) BUN/Creatinine Ratio 14 (6-26) Glucose 138 H (70-105) mg/dL Calculated Osmolality 281 (280-300) Calcium 9.5 (8.6-10.3) mg/dL Urine Color Dark Yellow (Yellow) Urine Clarity Cloudy A (Clear) Urine pH 6.0 (5.0-8.0) pH Units Ur Specific [place] 1.029 H (1.010-1.025) Urine Protein 30 H (Neg-Trace) mg/dL Urine Glucose (UA) Normal (Normal) mg/dL Urine Ketones Trace H (Negative) mg/dL Urine Blood Moderate H (Negative) Urine Nitrite Negative (Negative) Urine Bilirubin Small H (Negative) Urine Urobilinogen Normal (Normal) mg/dL Ur Leukocyte Esterase Negative (Negative) Urine Microscopic RBC 0-3 (0-3) per hpf Urine Microscopic WBC 5-15 H (0-3) per hpf Ur Squamous Epith Cells Many H (None-Few) per lpf Urine Bacteria Moderate H (None-Few) per hpf Hyaline Casts Few (None-Few) per lpf Urine Mucus Few (Few) Ur Culture Indicated? NO (NO) - Radiology Data Radiology results reviewed: Yes I reviewed the patient's radiology results.
[2017-08-12 03:52] LABS: Basophils % 0.4 %; Eosinophils % 0.5 %; Hemoglobin 14.9 g/dL (11.5-15.4)
[2017-08-12 03:54] LABS: Basophils # 0.1 K/mcL (0.0-0.2); Eosinophils # 0.1 K/mcL (0.0-0.6); Hematocrit 46.2 % (35.3-44.9); Immature Granulocytes % 1.2 % (0-4); Lymphocytes # 5.6 K/mcL (0.6-4.6); Lymphocytes % 19.9 %; Mean Corpuscular HGB Conc 32.3 g/dL (31.6-35.5); Mean Corpuscular Hemoglobin 28.1 pg (28.0-33.3); Mean Corpuscular Volume 87.2 fL (83.0-100.0); Mean Platelet Volume 8.6 fL (9.4-12.4); Monocytes # 0.9 K/mcL (0.0-1.3); Monocytes % 3.3 %; Neutrophils # 21.1 K/mcL (1.6-8.9); Platelet Count 279 K/mcL (140-400); Red Cell Distribution Width 14.3 % (11.5-14.5); Segmented Neutrophils % 74.7 %
[2017-08-12] MEDS ORDERED: Ketorolac 15 MG/ML VIAL IVP ONE (03:56)
[2017-08-12 04:04] LABS: BUN/Creatinine Ratio 14 (6-26); Blood Urea Nitrogen 15 mg/dL (6-20); Calcium 9.5 mg/dL (8.6-10.3); Carbon Dioxide 26 mEq/L (23-29); Chloride 101 mEq/L (98-107); Glucose 138 mg/dL (70-105); Osmolality,Calculated 281 (280-300); Sodium 134 mEq/L (136-145); eGFR For African Americans > 60 (> 60); eGFR For Non-African Americans 57 (> 60)
[2017-08-12 04:12] LABS: Platelet Estimate Normal (Normal); Reactive Lymphocytes Present (Not Present); Toxic Granulation Present (Not Present)
[2017-08-12 04:26] LABS: Bilirubin,Urine Small (Negative); Blood,Urine Moderate (Negative); Clarity,Urine Cloudy (Clear); Color,Urine Dark Yellow (Yellow); Glucose,Urine (UA) Normal (Normal); Ketones,Urine Trace mg/dL (Negative); Leukocyte Esterase,Urine Negative (Negative); Nitrite,Urine Negative (Negative); Protein,Urine 30 mg/dL (Neg-Trace); Specific Gravity,Urine 1.029 (1.010-1.025); Urobilinogen,Urine Normal (Normal)
[2017-08-12 04:29] LABS: Bacteria,Urine Moderate per hpf (None-Few); Squamous Epithelial Cell,Urine Many per lpf (None-Few)
[2017-08-12 04:43] LABS: Hyaline Casts,Urine Few per lpf (None-Few); Mucus,Urine Few (Few); RBC,Urine 0-3 per hpf (0-3)
[2017-08-12] MEDS ORDERED: predniSONE 20 MG TABLET PO ONE (05:07)
[2017-08-12 07:01] LABS: Basophils # 0.1 K/mcL (0.0-0.2); Basophils % 0.4 %; Eosinophils # 0.1 K/mcL (0.0-0.6); Eosinophils % 0.5 %; Hematocrit 40.2 % (35.3-44.9); Immature Granulocytes % 0.9 % (0-4); Lymphocytes # 3.7 K/mcL (0.6-4.6); Lymphocytes % 16.1 %; Mean Corpuscular HGB Conc 32.6 g/dL (31.6-35.5); Mean Corpuscular Hemoglobin 28.2 pg (28.0-33.3); Mean Corpuscular Volume 86.6 fL (83.0-100.0); Mean Platelet Volume 8.7 fL (9.4-12.4); Monocytes # 0.9 K/mcL (0.0-1.3); Monocytes % 3.9 %; Neutrophils # 17.9 K/mcL (1.6-8.9); Platelet Count 249 K/mcL (140-400); Red Blood Count 4.64 M/mcL (3.82-4.97); Red Cell Distribution Width 14.3 % (11.5-14.5); Segmented Neutrophils % 78.2 %
[2017-08-12 07:02] LABS: Hemoglobin 13.1 g/dL (11.5-15.4)
--- NOTE | 2017-08-12 07:52 | Emergency Department Note ---
Disposition Clinical Impression: Right flank pain Hypotension Qualifiers: Hypotension type: unspecified hypotension type Qualified Code(s): I95.9 - Hypotension, unspecified Leukocytosis Qualifiers: Leukocytosis type: unspecified Qualified Code(s): D72.829 - Elevated white blood cell count, unspecified Disposition: Admitted As Inpatient Condition: Fair General Adult HPI - General Chief complaint: ED General Medical Stated complaint: low bp Time Seen by Provider: 08/12/17 03:27 Source: patient Limitations: no limitations - History of Present Illness Pain Scale: 5 - Related Data Home Medications Medication Instructions Recorded Confirmed Albuterol Sulfate [Albuterol 90 mcg IH Q4HR PRN 03/27/15 08/12/17 Inhaler] Azelastine 1% Nasal [place] [Astelin] 1 spr NS BID 03/27/15 08/12/17 Calcium Carbonate/Vitamin D3 1 each PO DAILY 03/27/15 08/12/17 [Calcium 600 + D Tablet] Cetirizine HCl [Zyrtec] 10 mg PO DAILY 03/27/15 08/12/17 Cyclobenzaprine [Flexeril] 10 mg PO TID 03/27/15 08/12/17 EPINEPHrine PACK [EPINEPHrine] 0.3 mg IM ONCE PRN 03/27/15 08/12/17 Fluticasone Propionate Nasal 1 spray NS DAILY 03/27/15 08/12/17 [Flonase] Hydrochlorothiazide 25 mg PO DAILY 03/27/15 08/12/17 Mometasone Furoate [Asmanex] 110 mcg IH BID 03/27/15 08/12/17 Montelukast [Singulair] 10 mg PO DAILY 03/27/15 08/12/17 Ezetimibe [Zetia] 10 mg PO DAILY 04/20/17 08/12/17 Fenofibrate Nanocrystallized 160 mg PO DAILY 04/20/17 08/12/17 [Triglide] Gabapentin [Neurontin] 300 mg PO TID 04/20/17 08/12/17 Metoprolol XL (24 HR) Succ [Toprol 25 mg PO DAILY 04/20/17 08/12/17 Xl] Paroxetine HCl [Paxil] 40 mg PO DAILY 04/20/17 08/12/17 Ranitidine HCl [Acid Electrical Logger] 150 mg PO BID 04/20/17 08/12/17 Potassium Chloride Elixir 10 meq PO DAILY 08/10/17 08/12/17 [Potassium Chloride] cloNIDine HCl [CloNIDine HCl] 0.1 mg PO TID PRN 08/10/17 08/12/17 Previous Rx's Medication Instructions Recorded Aspirin Enteric Coated [Aspirin EC] 81 mg PO DAILY #30 tablet. 04/22/17 ALPRAZolam [Xanax 0.25 MG Tablet] 0.25 mg PO BID PRN 5 Days #10 08/11/17 tablet Butalb/Acetaminophen/Caffeine 1 each PO DAILY PRN #12 capsule 08/11/17 [Fioricet 50-300-40 mg Capsule] amLODIPine [Norvasc] 5 mg PO DAILY #30 tablet 08/11/17 Allergies Allergy/AdvReac Type Severity Reaction Status Date / Time diazepam [From Valium] Allergy Severe Swelling Verified 08/08/17 12:03 of Lip/Tongue/Throat duloxetine [From Cymbalta] Allergy Severe Swelling Verified 08/08/17 12:03 of Lip/Tongue/Throat Minocycline Allergy Severe Swelling Verified 08/08/17 12:03 of Lip/Tongue/Throat olanzapine [From Zyprexa] Allergy Severe Swelling Verified 08/08/17 12:03 of Lip/Tongue/Throat iodine Allergy Mild SWELLING, Verified 08/08/17 12:03 SOB methylprednisolone Allergy Mild SWELLING,SO Verified 08/08/17 12:03 [From Medrol] B hydrocodone Allergy Swelling Verified 08/08/17 12:03 of Lip/Tongue/Throat Iodinated Contrast- Oral and Allergy Swelling Verified 08/08/17 12:03 IV Dye of Lip/Tongue/Throat Onion Allergy Swelling Verified 08/08/17 12:03 of Lip/Tongue/Throat Oxycodone [From Percocet] AdvReac Mild Vomiting Verified 08/08/17 12:03 Constitutional: Denies: fever, chills Eyes: Denies: eye pain ENT ED: Denies: ear pain Cardiovascular: Denies: chest pain, palpitations, dyspnea on exertion Respiratory: Denies: dyspnea Gastrointestinal: Denies: abdominal pain, nausea, vomiting Genitourinary: Denies: dysuria Musculoskeletal: Denies: back pain Integumentary: Denies: rash Neurological: Denies: headache, weakness, numbness, paresthesias Psychiatric: Denies: anxiety Endocrine: Denies: fatigue Hematological/Lymphatic: Denies: easy bleeding Allergic/Immunologic: Denies: facial swelling Past Medical History - Past Medical History Medical history: Reports: asthma, GERD, hyperlipidemia, hypertension, other Surgical history: Reports: appendectomy, cholecystectomy, hysterectomy, orthopedic, other, BIBIANA/BSO, other Psychiatric history: Reports: anxiety, depression [employer]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, 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 - Social History Smoking Status: Current every day smoker Smokeless Tobacco Status: No Alcohol use: Reports: none Drug use: Reports: none Physical Exam - General Limitations: no limitations General appearance: alert, appears intoxicated Course Vital Signs Temperature 97.9 F 08/12/17 03:19 Pulse Rate 83 08/12/17 03:19 Respiratory Rate 20 08/12/17 03:19 Blood Pressure 94/65 08/12/17 03:19 O2 Sat by Pulse Oximetry 99 08/12/17 03:19 Temperature 98.1 F 08/12/17 16:06 Pulse Rate 75 08/12/17 16:06 Respiratory Rate 16 08/12/17 16:06 Blood Pressure 110/67 08/12/17 16:06 O2 Sat by Pulse Oximetry 94 08/12/17 16:06 Oxygen Delivery Oxygen Delivery Room Air Medical Decision Making - MDM Narrative Medical decision making narrative: 46 year old female with history of hypertension, anxiety and leukocytosis presents with drunk feeling and lower blood pressure. pt was admitted to hospital on 07/13 for chest pain. SHe was discharged home with three new prescription including (Amlodipine and Xanax). Pt return to ER today for drunk feeling after taking Xanax. Denied chest pain, shortness of breath. Physical exam: BP 90s/60s, temperature normal. Labs: white cell 28, urine gravity >1.028 , no Leukocyte, no Nitrite, Negative troponin, Lactic acid, CRP, ESR, abdomen CT no acute change. Pt was given 2 L fluids and Predenisone for allergy to Contrast. Repeat CBC:white cell 22. BP improved to 112/76. Plan: admit for re- valuate for Leukocytosis - Lab Data Result diagrams: 08/12/17 06:48 08/12/17 03:30 Lab Results 08/12/17 08/12/17 08/12/17 Range/Units 03:30 03:30 04:09 WBC 28.2 H D (4.3-11.1) K/mcL RBC 5.30 H (3.82-4.97) M/mcL Hgb 14.9 (11.5-15.4) g/dL Hct 46.2 H (35.3-44.9) % MCV 87.2 (83.0-100.0) fL MCH 28.1 (28.0-33.3) pg MCHC 32.3 (31.6-35.5) g/dL RDW 14.3 (11.5-14.5) % Plt Count 279 (140-400) K/mcL MPV 8.6 L (9.4-12.4) fL Immature Gran % 1.2 (0-4) % Seg Neutrophils % 74.7 % Lymphocytes % 19.9 % Monocytes % 3.3 % Eosinophils % 0.5 % Basophils % 0.4 % Neutrophils # 21.1 H (1.6-8.9) K/mcL Lymphocytes # 5.6 H (0.6-4.6) K/mcL Monocytes # 0.9 (0.0-1.3) K/mcL Eosinophils # 0.1 (0.0-0.6) K/mcL Basophils # 0.1 (0.0-0.2) K/mcL Reactive Lymphocytes Present A (Not Present) Toxic Granulation Present A (Not Present) Platelet Estimate Normal (Normal) ESR (0-15) mm/hr Sodium 134 L (136-145) mEq/L Potassium 3.0 L (3.5-5.1) mEq/L Chloride 101 (98-107) mEq/L Carbon Dioxide 26 (23-29) mEq/L BUN 15 (6-20) mg/dL Creatinine 1.04 (0.60-1.20) mg/dL Est GFR ( Amer) > 60 (> 60) Est GFR (Non-Af Amer) 57 L (> 60) BUN/Creatinine Ratio 14 (6-26) Glucose 138 H (70-105) mg/dL Calculated Osmolality 281 (280-300) Lactic Acid (0.5-2.2) mmol/L Calcium 9.5 (8.6-10.3) mg/dL C-Reactive Protein (Less than 10) mg/L Urine Color Dark Yellow (Yellow) Urine Clarity Cloudy A (Clear) Urine pH 6.0 (5.0-8.0) pH Units Ur Specific [place] 1.029 H (1.010-1.025) Urine Protein 30 H (Neg-Trace) mg/dL Urine Glucose (UA) Normal (Normal) mg/dL Urine Ketones Trace H (Negative) mg/dL Urine Blood Moderate H (Negative) Urine Nitrite Negative (Negative) Urine Bilirubin Small H (Negative) Urine Urobilinogen Normal (Normal) mg/dL Ur Leukocyte Esterase Negative (Negative) Urine Microscopic RBC 0-3 (0-3) per hpf Urine Microscopic WBC 5-15 H (0-3) per hpf Ur Squamous Epith Cells Many H (None-Few) per lpf Urine Bacteria Moderate H (None-Few) per hpf Hyaline Casts Few (None-Few) per lpf Urine Mucus Few (Few) Ur Culture Indicated? NO (NO) 08/12/17 08/12/17 08/12/17 Range/Units 06:47 06:47 06:47 WBC (4.3-11.1) K/mcL RBC (3.82-4.97) M/mcL Hgb (11.5-15.4) g/dL Hct (35.3-44.9) % MCV (83.0-100.0) fL MCH (28.0-33.3) pg MCHC (31.6-35.5) g/dL RDW (11.5-14.5) % Plt Count (140-400) K/mcL MPV (9.4-12.4) fL Immature Gran % (0-4) % Seg Neutrophils % % Lymphocytes % % Monocytes % % Eosinophils % % Basophils % % Neutrophils # (1.6-8.9) K/mcL Lymphocytes # (0.6-4.6) K/mcL Monocytes # (0.0-1.3) K/mcL Eosinophils # (0.0-0.6) K/mcL Basophils # (0.0-0.2) K/mcL Reactive Lymphocytes (Not Present) Toxic Granulation (Not Present) Platelet Estimate (Normal) ESR 10 (0-15) mm/hr Sodium (136-145) mEq/L Potassium (3.5-5.1) mEq/L Chloride (98-107) mEq/L Carbon Dioxide (23-29) mEq/L BUN (6-20) mg/dL Creatinine (0.60-1.20) mg/dL Est GFR ( Amer) (> 60) Est GFR (Non-Af Amer) (> 60) BUN/Creatinine Ratio (6-26) Glucose (70-105) mg/dL Calculated Osmolality (280-300) Lactic Acid 1.2 (0.5-2.2) mmol/L Calcium (8.6-10.3) mg/dL C-Reactive Protein 8 (Less than 10) mg/L Urine Color (Yellow) Urine Clarity (Clear) Urine pH (5.0-8.0) pH Units Ur Specific [place] (1.010-1.025) Urine Protein (Neg-Trace) mg/dL Urine Glucose (UA) (Normal) mg/dL Urine Ketones (Negative) mg/dL Urine Blood (Negative) Urine Nitrite (Negative) Urine Bilirubin (Negative) Urine Urobilinogen (Normal) mg/dL Ur Leukocyte Esterase (Negative) Urine Microscopic RBC (0-3) per hpf Urine Microscopic WBC (0-3) per hpf Ur Squamous Epith Cells (None-Few) per lpf Urine Bacteria (None-Few) per hpf Hyaline Casts (None-Few) per lpf Urine Mucus (Few) Ur Culture Indicated? (NO) 08/12/17 Range/Units 06:48 WBC 22.8 H (4.3-11.1) K/mcL RBC 4.64 (3.82-4.97) M/mcL Hgb 13.1 D (11.5-15.4) g/dL Hct 40.2 (35.3-44.9) % MCV 86.6 (83.0-100.0) fL MCH 28.2 (28.0-33.3) pg MCHC 32.6 (31.6-35.5) g/dL RDW 14.3 (11.5-14.5) % Plt Count 249 (140-400) K/mcL MPV 8.7 L (9.4-12.4) fL Immature Gran % 0.9 (0-4) % Seg Neutrophils % 78.2 % Lymphocytes % 16.1 % Monocytes % 3.9 % Eosinophils % 0.5 % Basophils % 0.4 % Neutrophils # 17.9 H (1.6-8.9) K/mcL Lymphocytes # 3.7 (0.6-4.6) K/mcL Monocytes # 0.9 (0.0-1.3) K/mcL Eosinophils # 0.1 (0.0-0.6) K/mcL Basophils # 0.1 (0.0-0.2) K/mcL Reactive Lymphocytes (Not Present) Toxic Granulation (Not Present) Platelet Estimate (Normal) ESR (0-15) mm/hr Sodium (136-145) mEq/L Potassium (3.5-5.1) mEq/L Chloride (98-107) mEq/L Carbon Dioxide (23-29) mEq/L BUN (6-20) mg/dL Creatinine (0.60-1.20) mg/dL Est GFR ( Amer) (> 60) Est GFR (Non-Af Amer) (> 60) BUN/Creatinine Ratio (6-26) Glucose (70-105) mg/dL Calculated Osmolality (280-300) Lactic Acid (0.5-2.2) mmol/L Calcium (8.6-10.3) mg/dL C-Reactive Protein (Less than 10) mg/L Urine Color (Yellow) Urine Clarity (Clear) Urine pH (5.0-8.0) pH Units Ur Specific [place] (1.010-1.025) Urine Protein (Neg-Trace) mg/dL Urine Glucose (UA) (Normal) mg/dL Urine Ketones (Negative) mg/dL Urine Blood (Negative) Urine Nitrite (Negative) Urine Bilirubin (Negative) Urine Urobilinogen (Normal) mg/dL Ur Leukocyte Esterase (Negative) Urine Microscopic RBC (0-3) per hpf Urine Microscopic WBC (0-3) per hpf Ur Squamous Epith Cells (None-Few) per lpf Urine Bacteria (None-Few) per hpf Hyaline Casts (None-Few) per lpf Urine Mucus (Few) Ur Culture Indicated? (NO)
[2017-08-12] MEDS ORDERED: Naloxone 0.4 MG/ML INJ IVP PRN (15:09)
--- NOTE | 2017-08-12 15:16 | Internal Med History&Physical ---
<Daniel Kirk - Last Filed: 08/12/17 17:34> Date of Encounter: 08/12/17 Time of Encounter: 15:13 Assessment and Plan (1) Hypotension Current visit: Yes Status: Acute Found to be hypotensive in the ED with SBP in the 90's. She was recently admitted and seen for chest pain and HTN and discharged yesterday with the addition of Norvasc to her daily BP medications. She is currently taking a BB, Norvasc, Clonadine and HCTZ. Hypotension improved in ED with a 1l fluid bolus. The hypotension could also be caused by polypharmacy as she is on many medications that may cause hypotension -Hold Norvasc, Clonadine and HCTZ for now -Resume BB tonight if BP remains stable throughout the day -Continuous tele, spo2 monitoring -orthostatic vitals -Hold gabapentin, flexeril and xanax Qualifiers: Hypotension type: unspecified hypotension type Qualified Code(s): I95.9 - Hypotension, unspecified (2) Polypharmacy Current visit: Yes Status: Acute (3) Anxiety Current visit: Yes Status: Acute Does not appear anxious at this time. No prior h/o anxiety, but was anxious throughout her last hospital stay and started on Xanax at discharge. However, she returns today with what she describes as a "drunk sensation" after ingestion of Xanax -hold xanax for now (4) Dizziness Current visit: Yes Status: Acute Etiology unclear. She reports that it began after ingestion of Xanax late last night, but, she also reports that it is worse with position change. She was also found to be hypotensive on arrival and was recently started on Norvasc in addition to her clonadine, BB, and HCTZ. The hypotension can also account for the dizziness. No focal neurological deficits. Negative Romberg, does not appear worse with position upon examination. No prior neurological history. She does however report tacycardia, heat sensitivity and sweating for the last few weeks. -orthostatic vitals -TSH now -Hold Gabapentin, Flexeril, and Xanax (5) Hypokalemia Current visit: Yes Status: Acute Received 80meq oral potassium in the ED. -Stat serum potassium now -Replace potassium as needed -recheck in the morning -tele monitor (6) Leukocytosis Current visit: Yes Status: Acute Leukocytosis with WBC of 22 on today's CBC. Unclear etiology, no obvious infective source. UA unremarkable, CXR no pulmonary disease. She had mild leukocytosis prior to DC yesterday. -Blood cultures x2 -Rapid flu swab now -CBCD in the am-Continue to trend WBC -Withholding ABX at this time as there is no obvious source of infection. Qualifiers: Leukocytosis type: unspecified Qualified Code(s): D72.829 - Elevated white blood cell count, unspecified (7) HLD (hyperlipidemia) Current visit: Yes Status: Chronic Continue Triglide Qualifiers: Hyperlipidemia type: mixed hyperlipidemia Qualified Code(s): E78.2 - Mixed hyperlipidemia (8) DVT prophylaxis Current visit: Yes Status: Acute Heparin 5000 units SC BID Internal Medicine - H&P: HPI Chief complaint: diziness, hypotension, anxiety Admitted From: Home Plans for Post Hospital Care: Home History of present illness: Ms. Chambers is a 46 year old female with a PMH of asthma, GERD, hyperlipidemia , and hypertension. She presents to [facility] today with a "drunk feeling" and hypotension as well as dizziness. She reports that this began last night after ingesting Xanax. She was recently admitted and treated here for chest pain, HTN and anxiety and was discharged yesterday with Xanax and Amlodipine. She returned to [facility] today with the previous stated symptoms. She was found to be Hypotesive with SBP in the 90's and was found to have leukocytosis with a WBC of 22 with no obvious source of infection. CXR, UA AND CT abdomen and pelvis were unremarkable. Her BP improved with a 1L fluid bolus but she continues to have intermittent dizzy sensations. D/T this she is being admitted for further evaluation and observation. Past Med Surg Social Fam HX - Past Medical History Medical history: asthma, GERD, hyperlipidemia, hypertension, other Psychiatric history: anxiety, depression - Past Surgical History Surgical History: appendectomy, cholecystectomy, hysterectomy, orthopedic, other , BIBIANA/BSO, other - Social History Smoking Status: Current every day smoker Smokeless Tobacco Status: No Alcohol use: none Drug use: none - Family History Father Family Member Ethnicity: Non- Living Status: Hx Family Cardiac Disorders: Yes (4-[place]) Hx Family Respiratory Disorders: No Hx Family Cancer: Yes (throat) Hx Family GI Disorders: No Hx Family Endocrine Disorder: No Hx Family Neuromuscular Disorders: No Hx Family Neurologic Disorders: No Hx Family HEENT Disorders: No Hx Family Autoimmune Disorders: No Mother Family Member Ethnicity: Non- Living Status: Still Living Hx Family Cardiac Disorders: No Hx Family Respiratory Disorders: No Hx Family Cancer: No Hx Family GI Disorders: No Hx Family Genitourinary Disorders: No Hx Family Endocrine Disorder: No Hx Family Musculoskeletal Disorders: No Hx Family Neuromuscular Disorders: No Hx Family Neurologic Disorders: No Hx Family HEENT Disorders: No Hx Family Autoimmune Disorders: No Hx Family Reproductive Disorders: No Hx Family Psychosocial Disorders: No Hx Family Medical Disorders: No Sister Family Member Ethnicity: Non- Living Status: Still Living Hx Family Cardiac Disorders: No Hx Family Respiratory Disorders: Yes Hx Family Cancer: Yes Hx Family GI Disorders: No Hx Family Endocrine Disorder: No Hx Family Neuromuscular Disorders: No Hx Family Neurologic Disorders: No Hx Family HEENT Disorders: No Hx Family Autoimmune Disorders: No Internal Medicine - H&P: Meds Albuterol Sulfate [Albuterol Inhaler] 90 mcg IH Q4HR PRN 03/27/15 [History] Azelastine 1% Nasal [place] [Astelin] 1 spr NS BID 03/27/15 [History] Calcium Carbonate/Vitamin D3 [Calcium 600 + D Tablet] 1 each PO DAILY 03/27/15 [ History] Cetirizine HCl [Zyrtec] 10 mg PO DAILY 03/27/15 [History] Cyclobenzaprine [Flexeril] 10 mg PO TID 03/27/15 [History] EPINEPHrine PACK [EPINEPHrine] 0.3 mg IM ONCE PRN 03/27/15 [History] Fluticasone Propionate Nasal [Flonase] 1 spray NS DAILY 03/27/15 [History] Hydrochlorothiazide 25 mg PO DAILY 03/27/15 [History] Mometasone Furoate [Asmanex] 110 mcg IH BID 03/27/15 [History] Montelukast [Singulair] 10 mg PO DAILY 03/27/15 [History] Ezetimibe [Zetia] 10 mg PO DAILY 04/20/17 [History] Fenofibrate Nanocrystallized [Triglide] 160 mg PO DAILY 04/20/17 [History] Gabapentin [Neurontin] 300 mg PO TID 04/20/17 [History] Metoprolol XL (24 HR) Succ [Toprol Xl] 25 mg PO DAILY 04/20/17 [History] Paroxetine HCl [Paxil] 40 mg PO DAILY 04/20/17 [History] Ranitidine HCl [Acid Electric Motor Assembler And Tester] 150 mg PO BID 04/20/17 [History] Aspirin Enteric Coated [Aspirin EC] 81 mg PO DAILY #30 tablet. 04/22/17 [Rx] Potassium Chloride Elixir [Potassium Chloride] 10 meq PO DAILY 08/10/17 [History ] cloNIDine HCl [CloNIDine HCl] 0.1 mg PO TID PRN 08/10/17 [History] ALPRAZolam [Xanax 0.25 MG Tablet] 0.25 mg PO BID PRN 5 Days #10 tablet 08/11/17 [Rx] Butalb/Acetaminophen/Caffeine [Fioricet 50-300-40 mg Capsule] 1 each PO DAILY PRN #12 capsule 08/11/17 [Rx] amLODIPine [Norvasc] 5 mg PO DAILY #30 tablet 08/11/17 [Rx] 3 Allergy/AdvReac Type Severity Reaction Status Date / Time diazepam [From Valium] Allergy Severe Swelling Verified 08/08/17 12:03 of Lip/Tongue/Throat duloxetine [From Cymbalta] Allergy Severe Swelling Verified 08/08/17 12:03 of Lip/Tongue/Throat Minocycline Allergy Severe Swelling Verified 08/08/17 12:03 of Lip/Tongue/Throat olanzapine [From Zyprexa] Allergy Severe Swelling Verified 08/08/17 12:03 of Lip/Tongue/Throat iodine Allergy Mild SWELLING, Verified 08/08/17 12:03 SOB methylprednisolone Allergy Mild SWELLING,SO Verified 08/08/17 12:03 [From Medrol] B hydrocodone Allergy Swelling Verified 08/08/17 12:03 of Lip/Tongue/Throat Iodinated Contrast- Oral and Allergy Swelling Verified 08/08/17 12:03 IV Dye of Lip/Tongue/Throat Onion Allergy Swelling Verified 08/08/17 12:03 of Lip/Tongue/Throat Oxycodone [From Percocet] AdvReac Mild Vomiting Verified 08/08/17 12:03 All Systems PM: A 10-system review of systems was performed and is negative for pertinent findings except as documented above in the HPI. - Constitutional Constitutional: excessive sweating, no chills, no fatigue, no fever(s) - EENT Eyes: no change in vision, no discharge, no pain, no photophobia Ears: no ear discharge, no ear pain, no tinnitus Nose, mouth and throat: no dysphagia, no nasal discharge, no neck pain, no sore throat - Cardiovascular Cardiovascular ROS IM: lightheadedness, palpitations, no chest pain, no dyspnea , no dyspnea on exertion, no edema Additional comments: tachycardia - Respiratory Respiratory: no cough, no dyspnea, no wheezing, no excessive phlegm production - Gastrointestinal Gastrointestinal: nausea, vomiting, no abdominal pain, no diarrhea, no hematemesis, no hematochezia, no melena - Genitourinary Genitourinary: no change in urinary stream, no dysuria, no flank pain, no hematuria - Musculoskeletal Musculoskeletal ROS IM: no arthralgias, no myalgias, no numbness, no tingling - Neurological Neurological ROS: dizziness, headache(s), no confusion, no convulsions, no focal weakness, no numbness, no tingling, no tremor(s) - Constitutional Vitals: Temp Pulse Resp BP Pulse Ox 97.9 F 69 18 120/75 95 08/12/17 11:06 08/12/17 11:06 08/12/17 11:06 08/12/17 11:06 08/12/17 11:06 General appearance: Present: cooperative, A&O X 3, no acute distress, answers questions appropriately - Head Head exam: Present: atraumatic, normocephalic - Eye Eye exam: Present: PERRL, conjuntiva pink, sclera anicteric Pupils: Present: PERRL - Neck Neck exam general surgery: Present: supple, trachea midline. Absent: lymphadenopathy - Respiratory Respiratory exam: Present: CTAB. Absent: accessory muscle use, rales, rhonchi, wheezes - Cardiovascular Cardiovascular exam: Present: RRR, +S1, +S2. Absent: diastolic murmur, gallop, rubs, systolic murmur - GI/Abdominal GI/Abdominal exam: Present: normal bowel sounds, soft, no peritoneal signs. Absent: distended, tenderness - Extremities Exam Extremities exam: Present: warm, radial pulses palpable and symmetrical. Absent : calf tenderness, cyanotic, pedal edema - Neurological Exam Neurological exam: Present: CN II-XII intact, oriented X3, no focal deficits. Absent: pronater drift, facial droop, speech deficit - Skin Skin exam: Present: dry, intact Internal Med - H&P Results - Labs CBC & Chem 7: 08/12/17 06:48 08/12/17 03:30 - EKG Data -: EKG Interpreted by Myself EKG shows normal: sinus rhythm Rate: normal - Impressions Impressions Chest X-Ray 08/12/17 03:30 IMPRESSION: Negative portable chest. D/ / Zane Barbosa MD / Zane Barbosa MD Interpreting Provider: Zane Barbosa MD Abdomen/Pelvis CTA 08/12/17 04:45 IMPRESSION: No acute abnormality identified in the abdomen or pelvis. D/ / 08/12/2017 07:48:32 Zane Barbosa MD / earnold Interpreting Provider: Zane Barbosa MD <Conor Babcock M - Last Filed: 08/12/17 18:12> Date of Encounter: 08/12/17 Internal Medicine - H&P: HPI History of present illness: Ms. Chambers is a 46 year old female All Systems PM: A 10-system review of systems was performed and is negative for pertinent findings except as documented above in the HPI. - Constitutional Vitals: Temp Pulse Resp BP Pulse Ox 98.1 F 75 16 110/67 94 08/12/17 16:06 08/12/17 16:06 08/12/17 16:06 08/12/17 16:06 08/12/17 16:06 Internal Med - H&P Results - Labs CBC & Chem 7: 08/12/17 06:48 08/12/17 15:48 - Attending Attestation I have personally performed a face to face evaluation on this patient. I have reviewed and agree with the care plan as written by Daniel Kirk NP. Patient been having a feeling of being "drunk" and dizzy. She was discharged yesterday after admission for chest pain. Cardiology was involved at the time. Norvasc was added at d/c and also given xanax script. She took a dose and felt "drunk". work up in the ED showed Systolic bp in 80s. Given 1 L NS and BP improved. Noted to have a WBC cound of 22k. Had elevated WBC at discharge but not this high. Not febrile. Will hold antihypertensives for now (patient is on BB, HCTZ, Clonidine, norvasc) . Ok to give BB tonight if BP is better Hold all sedating drugs for now (patient takes Neurontin, flexeril, xanax). Those may need to be adjusted by discharge. No abx for now as no source. Check blood cultures. UA + for blood and bacteria but no urinary complaints. She says shes always had bloody urine and followed with Dr. Mercer. Had a right ureteral stent [place] [address] Mercer. labs in am.
[2017-08-12] MEDS: Gabapentin 300 MG CAPSULE PO SCH ×2 (15:39→20:22)
[2017-08-12] MEDS: Famotidine 20 MG TABLET PO SCH (17:43)
[2017-08-12] MEDS: *HR* Heparin 5,000 UNIT/ML VIAL SQ SCH (17:43)
[2017-08-12] MEDS: Azelastine 0.1% Nasal Spray 30 ML BOTTLE NS SCH (20:25)
[2017-08-12] MEDS: Acetaminophen/Butalbital/CaffeineTABLET PO PRN (20:25)
[2017-08-12] MEDS: Metoprolol XL (24 HR) Succ 25 MG TAB.ER.24H PO SCH (20:25)
[2017-08-12] MEDS: Beclomethasone 80mcg MDI IH SCH (21:22)
[2017-08-13] MEDS: *HR* Heparin 5,000 UNIT/ML VIAL SQ SCH (06:14)
[2017-08-13] MEDS: Famotidine 20 MG TABLET PO SCH ×2 (06:14→15:20)
[2017-08-13] MEDS: (Ezetimibe [Zetia] 10 MG) PO SCH (07:06)
[2017-08-13] MEDS: Gabapentin 300 MG CAPSULE PO SCH ×3 (07:06→20:03)
[2017-08-13] MEDS: Potassium Chloride Elixir 20 MEQ/15 ML UDC PO SCH (08:06)
[2017-08-13] MEDS: Aspirin Enteric Coated 81 MG Tablet PO SCH (08:10)
[2017-08-13] MEDS: Cholecalciferol (D-3) 1,000 UNIT TABLET PO SCH (08:10)
[2017-08-13] MEDS: Fenofibrate 54 MG TABLET PO SCH (08:10)
[2017-08-13] MEDS: Fluticasone Propionate Nasal 50 MCG/SPRAY BOTTLE NS SCH (08:14)
[2017-08-13] MEDS: Azelastine 0.1% Nasal Spray 30 ML BOTTLE NS SCH ×2 (08:14→20:03)
[2017-08-13 09:20] LABS: Basophils # 0.1 K/mcL (0.0-0.2); Basophils % 0.4 %; Eosinophils # 0.1 K/mcL (0.0-0.6); Eosinophils % 0.5 %; Hematocrit 42.9 % (35.3-44.9); Hemoglobin 13.7 g/dL (11.5-15.4); Immature Granulocytes % 0.5 % (0-4); Lymphocytes # 6.2 K/mcL (0.6-4.6); Lymphocytes % 32.8 %; Mean Corpuscular HGB Conc 31.9 g/dL (31.6-35.5); Mean Corpuscular Hemoglobin 28.1 pg (28.0-33.3); Mean Corpuscular Volume 87.9 fL (83.0-100.0); Mean Platelet Volume 8.9 fL (9.4-12.4); Monocytes # 0.6 K/mcL (0.0-1.3); Monocytes % 3.4 %; Neutrophils # 11.7 K/mcL (1.6-8.9); Platelet Count 265 K/mcL (140-400); Red Blood Count 4.88 M/mcL (3.82-4.97); Red Cell Distribution Width 14.5 % (11.5-14.5); Segmented Neutrophils % 62.4 %
[2017-08-13] MEDS: Beclomethasone 80mcg MDI IH SCH ×2 (09:48→20:10)
[2017-08-13 10:04] LABS: BUN/Creatinine Ratio 12 (6-26); Blood Urea Nitrogen 9 mg/dL (6-20); Calcium 9.1 mg/dL (8.6-10.3); Carbon Dioxide 20 mEq/L (23-29); Chloride 114 mEq/L (98-107); Glucose 89 mg/dL (70-105); Osmolality,Calculated 288 (280-300); Sodium 140 mEq/L (136-145); eGFR For African Americans > 60 (> 60); eGFR For Non-African Americans > 60 (> 60)
[2017-08-13] MEDS: Acetaminophen/Butalbital/CaffeineTABLET PO PRN (12:52)
[2017-08-13] MEDS: amLODIPine 5 MG TABLET PO SCH (13:04)
[2017-08-13] MEDS ORDERED: cloNIDine HCl 0.1 MG TABLET PO ONE (14:49)
[2017-08-13] MEDS: Nicotine 21 MG PATCH.TD24 TD SCH (15:44)
--- NOTE | 2017-08-13 16:30 | Internal Med Progress Note ---
Date of Encounter: 08/13/17 Time of Encounter: 14:30 - Assessment and plan (1) Hypotension Current Visit: Yes Status: Resolved Assessment and plan: Pt has very labile BP at times. I feel it may be related to BP meds. Will monitor her here tonight and reassess in AM. Most likely will ask renal to see tomorrow. Qualifiers: Hypotension type: hypotension due to drug Qualified Code(s): I95.2 - Hypotension due to drugs (2) Hypertension Current Visit: No Status: Chronic Assessment and plan: As above. Qualifiers: Hypertension type: essential hypertension Qualified Code(s): I10 - Essential (primary) hypertension (3) Asthma Current Visit: No Status: Chronic Assessment and plan: Continue home meds. Qualifiers: Asthma severity: mild Asthma persistence: intermittent Asthma complication type: uncomplicated Qualified Code(s): J45.20 - Mild intermittent asthma, uncomplicated (4) Leukocytosis Current Visit: Yes Status: Acute Assessment and plan: WBC still elevated today. No signs of infection at this point. Did receive steroids last night for CT scan. Recheck in AM. Qualifiers: Leukocytosis type: unspecified Qualified Code(s): D72.829 - Elevated white blood cell count, unspecified (5) HLD (hyperlipidemia) Current Visit: Yes Status: Chronic Assessment and plan: Chronic issue. Qualifiers: Hyperlipidemia type: mixed hyperlipidemia Qualified Code(s): E78.2 - Mixed hyperlipidemia (6) Dizziness Current Visit: Yes Status: Resolved - Subjective Interval history: Ms Chambers is currently in observation for mental status change. He BP has been very labile. She remains moderate to high risk due to potential for worsening clinical status. Ms Chambers feels OK at this time. Her BP has been up and down today. She has received Norvasc 5mg and now will get Clonidine as well. I have reviewed her blood pressures from home. She has times when her SBP is greater than 170 and then drops to 70 a few hours later (usually after takes a dose of Clonidine). Her prescription for Clonidine says to take if greater than 155/95. She denies CP or SOB. No cough. No fever or chills. is at bedside and is concerned about her blood pressure and management. - Constitutional Vitals: Temp Pulse Resp BP Pulse Ox 97.7 F 66 20 153/88 96 08/13/17 14:34 08/13/17 14:34 08/13/17 14:34 08/13/17 14:34 08/13/17 14:34 General appearance: Present: cooperative, A&O X 3, no acute distress, answers questions appropriately - Head Head exam: Present: normocephalic - Eye Eye exam: Present: conjuntiva pink - ENT ENT exam: Present: mucous membranes dry - Respiratory Respiratory exam: Present: CTAB. Absent: rhonchi, wheezes - Cardiovascular Cardiovascular exam: Present: RRR. Absent: tachycardia - GI/Abdominal GI/Abdominal exam: Present: soft. Absent: tenderness - Extremities Exam Extremities exam: Present: warm. Absent: tenderness - Neurological Exam Neurological exam: Present: alert, oriented X3, no focal deficits - Skin Skin exam: Present: dry, warm Internal Medicine: Result - Labs CBC & Chem 7: 08/13/17 08:42 08/13/17 08:29 Labs: Short CBC 08/13/17 Range/Units 08:42 WBC 18.7 H (4.3-11.1) K/mcL Hgb 13.7 (11.5-15.4) g/dL Hct 42.9 (35.3-44.9) % Plt Count 265 (140-400) K/mcL Neutrophils # 11.7 H (1.6-8.9) K/mcL BMP 08/12/17 08/13/17 15:48 08:29 Sodium 140 Potassium 3.9 D 4.0 Chloride 114 H Carbon Dioxide 20 L BUN 9 Creatinine 0.74 Glucose 89 Calcium 9.1 Consult Discharge Plan - Plan Referrals: Michaelle William CNP [Primary Care Provider] -
[2017-08-13] MEDS ORDERED: Acetaminophen 325 MG TABLET PO PRN (17:27)
[2017-08-13] MEDS: Metoprolol XL (24 HR) Succ 25 MG TAB.ER.24H PO SCH (20:03)
[2017-08-14 05:10] LABS: Hematocrit 47.4 % (35.3-44.9); Hemoglobin 14.7 g/dL (11.5-15.4); Mean Corpuscular Hemoglobin 27.1 pg (28.0-33.3); Mean Corpuscular Volume 87.3 fL (83.0-100.0); Mean Platelet Volume 8.8 fL (9.4-12.4); Platelet Count 301 K/mcL (140-400); Red Blood Count 5.43 M/mcL (3.82-4.97); Red Cell Distribution Width 14.5 % (11.5-14.5)
[2017-08-14 05:33] LABS: BUN/Creatinine Ratio 14 (6-26); Blood Urea Nitrogen 10 mg/dL (6-20); Calcium 9.7 mg/dL (8.6-10.3); Carbon Dioxide 25 mEq/L (23-29); Chloride 107 mEq/L (98-107); Glucose 78 mg/dL (70-105); Magnesium 2.1 mg/dL (1.6-2.6); Osmolality,Calculated 294 (280-300); Potassium 4.1 mEq/L (3.5-5.1); Sodium 143 mEq/L (136-145); eGFR For African Americans > 60 (> 60); eGFR For Non-African Americans > 60 (> 60)
[2017-08-14] MEDS: Famotidine 20 MG TABLET PO SCH ×2 (05:53→14:14)
[2017-08-14] MEDS: Nicotine 21 MG PATCH.TD24 TD SCH (07:29)
[2017-08-14] MEDS: Potassium Chloride Elixir 20 MEQ/15 ML UDC PO SCH (07:30)
[2017-08-14] MEDS: Aspirin Enteric Coated 81 MG Tablet PO SCH (07:31)
[2017-08-14] MEDS: Gabapentin 300 MG CAPSULE PO SCH ×2 (07:31→14:13)
[2017-08-14] MEDS: Fenofibrate 54 MG TABLET PO SCH (07:31)
[2017-08-14] MEDS: Cholecalciferol (D-3) 1,000 UNIT TABLET PO SCH (07:31)
[2017-08-14] MEDS: amLODIPine 5 MG TABLET PO SCH (07:31)
[2017-08-14] MEDS: Fluticasone Propionate Nasal 50 MCG/SPRAY BOTTLE NS SCH (07:32)
[2017-08-14] MEDS: Azelastine 0.1% Nasal Spray 30 ML BOTTLE NS SCH (07:32)
[2017-08-14] MEDS: (Ezetimibe [Zetia] 10 MG) PO SCH (07:32)
[2017-08-14] MEDS: Beclomethasone 80mcg MDI IH SCH (10:40)
[2017-08-14 11:05] VITALS: BP 133/89
--- NOTE | 2017-08-14 11:33 | Nephrology Consult Note ---
Date of Encounter: 08/14/17 Time of Encounter: 11:30 Assessment and Plan (1) Hypertension Status: Chronic Labile HTN with initiate secondary HTN workup: Will check catecholamines Will check renin, cortisol and aldosterone levels Will check TSH and free T4 if not already done Will check urine for proteinuria CTA noted, will check US of kidney Will stop HCTZ since adding low dose aldactone Ok to discharge today as BP readings improving and patient very eager to go home. Can followup with me outpatient Qualifiers: Hypertension type: essential hypertension Qualified Code(s): I10 - Essential (primary) hypertension (2) Hypokalemia Status: Acute Will add low dose aldactone to regimen which should correct this problem (3) Hypotension Status: Resolved Qualifiers: Hypotension type: hypotension due to drug Qualified Code(s): I95.2 - Hypotension due to drugs History of Present Illness - Reason for Consult Consult date: 08/14/17 accelerated hypertension Requesting physician: Haroon Serrano - History of Present Illness 46 y o female with PMH of HTN,asthma, GERD and HLD admitted a second time with symptomatic hypotension after a recent hospital stay for chest pain with adjustments made to antihypertensive regimen. She has norvac added to her regimen that includes beta-marcela, clonidine and HCTZ. Renal consulted due to the labile nature of her blood pressure. Also noted was hypokalemia for which she takes supplements. CTA abd/pelvis negative for OLIMPIA. Past Med Surg Social Fam HX - Past Medical History Medical history: asthma, GERD, hyperlipidemia, hypertension, other Psychiatric history: anxiety, depression - Past Surgical History Surgical History: appendectomy, cholecystectomy, hysterectomy, orthopedic, other , BIBIANA/BSO, other - Social History Smoking Status: Current every day smoker Smokeless Tobacco Status: No Alcohol use: none Drug use: none - Family History Father Family Member Ethnicity: Non- Living Status: Hx Family Cardiac Disorders: Yes (4-[place]) Hx Family Respiratory Disorders: No Hx Family Cancer: Yes (throat) Hx Family GI Disorders: No Hx Family Endocrine Disorder: No Hx Family Neuromuscular Disorders: No Hx Family Neurologic Disorders: No Hx Family HEENT Disorders: No Hx Family Autoimmune Disorders: No Mother Family Member Ethnicity: Non- Living Status: Still Living Hx Family Cardiac Disorders: No Hx Family Respiratory Disorders: No Hx Family Cancer: No Hx Family GI Disorders: No Hx Family Genitourinary Disorders: No Hx Family Endocrine Disorder: No Hx Family Musculoskeletal Disorders: No Hx Family Neuromuscular Disorders: No Hx Family Neurologic Disorders: No Hx Family HEENT Disorders: No Hx Family Autoimmune Disorders: No Hx Family Reproductive Disorders: No Hx Family Psychosocial Disorders: No Hx Family Medical Disorders: No Sister Family Member Ethnicity: Non- Living Status: Still Living Hx Family Cardiac Disorders: No Hx Family Respiratory Disorders: Yes Hx Family Cancer: Yes Hx Family GI Disorders: No Hx Family Endocrine Disorder: No Hx Family Neuromuscular Disorders: No Hx Family Neurologic Disorders: No Hx Family HEENT Disorders: No Hx Family Autoimmune Disorders: No Medications and Allergies Albuterol Sulfate [Albuterol Inhaler] 90 mcg IH Q4HR PRN 03/27/15 [History] Azelastine 1% Nasal [place] [Astelin] 1 spr NS BID 03/27/15 [History] Calcium Carbonate/Vitamin D3 [Calcium 600 + D Tablet] 1 each PO DAILY 03/27/15 [ History] Cetirizine HCl [Zyrtec] 10 mg PO DAILY 03/27/15 [History] Cyclobenzaprine [Flexeril] 10 mg PO TID 03/27/15 [History] EPINEPHrine PACK [EPINEPHrine] 0.3 mg IM ONCE PRN 03/27/15 [History] Fluticasone Propionate Nasal [Flonase] 1 spray NS DAILY 03/27/15 [History] Mometasone Furoate [Asmanex] 110 mcg IH BID 03/27/15 [History] Montelukast [Singulair] 10 mg PO DAILY 03/27/15 [History] Ezetimibe [Zetia] 10 mg PO DAILY 04/20/17 [History] Fenofibrate Nanocrystallized [Triglide] 160 mg PO DAILY 04/20/17 [History] Gabapentin [Neurontin] 300 mg PO TID 04/20/17 [History] Metoprolol XL (24 HR) Succ [Toprol Xl] 25 mg PO DAILY 04/20/17 [History] Paroxetine HCl [Paxil] 40 mg PO DAILY 04/20/17 [History] Ranitidine HCl [Acid Boilermaker Apprentice] 150 mg PO BID 04/20/17 [History] Aspirin Enteric Coated [Aspirin EC] 81 mg PO DAILY #30 tablet.dr 04/22/17 [Rx] Potassium Chloride Elixir [Potassium Chloride] 10 meq PO DAILY 08/10/17 [History ] ALPRAZolam [Xanax 0.25 MG Tablet] 0.25 mg PO BID PRN 5 Days #10 tablet 08/11/17 [Rx] Butalb/Acetaminophen/Caffeine [Fioricet 50-300-40 mg Capsule] 1 each PO DAILY PRN #12 capsule 08/11/17 [Rx] amLODIPine [Norvasc] 5 mg PO DAILY #30 tablet 08/11/17 [Rx] Acetaminophen [Tylenol] 650 mg PO Q6HR PRN tablet 08/14/17 [Rx] Cholecalciferol (D-3) [Vitamin D] 1,000 unit PO DAILY tablet 08/14/17 [Rx] Nicotine Patch [Nicoderm] 21 mg TD DAILY patch.td24 08/14/17 [Rx] Spironolactone [Aldactone] 25 mg PO Q48H #30 tablet 08/14/17 [Rx] 3 Allergy/AdvReac Type Severity Reaction Status Date / Time diazepam [From Valium] Allergy Severe Swelling Verified 08/08/17 12:03 of Lip/Tongue/Throat duloxetine [From Cymbalta] Allergy Severe Swelling Verified 08/08/17 12:03 of Lip/Tongue/Throat Minocycline Allergy Severe Swelling Verified 08/08/17 12:03 of Lip/Tongue/Throat olanzapine [From Zyprexa] Allergy Severe Swelling Verified 08/08/17 12:03 of Lip/Tongue/Throat iodine Allergy Mild SWELLING, Verified 08/08/17 12:03 SOB methylprednisolone Allergy Mild SWELLING,SO Verified 08/08/17 12:03 [From Medrol] B hydrocodone Allergy Swelling Verified 08/08/17 12:03 of Lip/Tongue/Throat Iodinated Contrast- Oral and Allergy Swelling Verified 08/08/17 12:03 IV Dye of Lip/Tongue/Throat Onion Allergy Swelling Verified 08/08/17 12:03 of Lip/Tongue/Throat Oxycodone [From Percocet] AdvReac Mild Vomiting Verified 08/08/17 12:03 Review of Systems All Systems: reviewed and no additional remarkable complaints except as stated ( 10 systems reviewed) Exam - Vital Signs Vital signs: Initial Vital Signs Temp Pulse Resp BP Pulse Ox 97.9 F 83 20 94/65 99 08/12/17 03:19 08/12/17 03:19 08/12/17 03:19 08/12/17 03:19 08/12/17 03:19 Vital Signs - Last 8 Hours Temp Pulse Resp BP Pulse Ox 08/14/17 11:04 97.3 F L 59 16 133/89 97 08/14/17 10:42 18 98 08/14/17 06:58 97.4 F L 51 16 150/89 97 08/14/17 03:44 97.9 F 59 14 145/87 96 Intake and Output 08/13/17 08/14/17 08/14/17 23:59 07:59 15:59 Intake Total 240 / 240 Balance 240 / 240 Intake: Oral 240 / 240 Other: Meal Dinner Percent of Meal Consumed 100% # Voids 1 Weight 78.245 kg Patient Weight 08/14/17 23:59 Weight 78.245 kg - General Appearance General appearance: well-developed, well-nourished EENT: ATNC, mucous membranes moist Neck: no JVD, supple Respiratory: clear Cardiology: no edema, normal S1 Gastrointestinal: no tenderness, no guarding Integumentary: warm and dry Neurologic: no focal deficit Musculoskeletal: no deformities Psychiatric: mood/affect appropriate, cooperative Results - Lab Results 08/14/17 04:01 08/14/17 04:01 Most recent lab results Calcium 9.7 mg/dL (8.6-10.3) 08/14/17 04:01 Magnesium 2.1 mg/dL (1.6-2.6) 08/14/17 04:01 Consult Discharge Plan - Plan Instructions: Chest Pain (DC) Additional Instructions: Stop Clonidine and Hydrochlorithiazide. Take Metoprolol at night and Amlodipine in the AM Take Aldactone every other day. Can take additional one if blood pressure markedly elevated (greater than 160/95). Referrals: Michaelle William CNP [Primary Care Provider] - Cj Nayak MD [Partnered Physician] - (Follow up in office in 1- 2 weeks.) Prescriptions: Spironolactone [Aldactone] 25 mg PO Q48H #30 tablet
[2017-08-14] MEDS ORDERED: Ketorolac 30 MG/ML VIAL IVP ONE ×2 (14:00→14:11)
--- NOTE | 2017-08-14 14:55 | Discharge Summary ---
- NOTES TO OUTPATIENT PROVIDER Notes to Outpatient Provider: Nephrology consulted for blood pressure managment and she is to see as outpatient. She is now on Aldactone instead of HCTZ. She is also on potassium supplement so will need K rechecked. Orders not resulted at time of discharge: Pending orders 08/12/17 15:48 Culture,Blood [BC] Stat 08/14/17 04:01 Free T4 byEquilibrium Dialysis AM 0400 Reverse Triiodothyronine- T3 AM 0400 08/14/17 12:49 Aldosterone, Blood Routine Metanephrines, Plasma (Free) Routine Renin, Activity Routine 08/14/17 13:40 Urine Microalbumin Random [UCHEM] Routine Urine Protein Creat Ratio Pablo [UCHEM] Routine 08/14/17 13:53 EKG [ECG 12 lead ECG] [ECG] Stat 08/14/17 20:00 US retroperitoneal comp [US] Routine Date of Encounter: 08/14/17 Time of Encounter: 14:49 - Discharge Diagnosis (1) Hypotension Priority: Primary Status: Resolved Qualifiers: Hypotension type: hypotension due to drug Qualified Code(s): I95.2 - Hypotension due to drugs (2) Hypertension Priority: Primary Status: Chronic Qualifiers: Hypertension type: essential hypertension Qualified Code(s): I10 - Essential (primary) hypertension (3) Asthma Priority: Secondary Status: Chronic Qualifiers: Asthma severity: mild Asthma persistence: intermittent Asthma complication type: uncomplicated Qualified Code(s): J45.20 - Mild intermittent asthma, uncomplicated (4) Leukocytosis Priority: Secondary Status: Resolved Qualifiers: Leukocytosis type: unspecified Qualified Code(s): D72.829 - Elevated white blood cell count, unspecified (5) HLD (hyperlipidemia) Priority: Secondary Status: Chronic Qualifiers: Hyperlipidemia type: mixed hyperlipidemia Qualified Code(s): E78.2 - Mixed hyperlipidemia (6) Dizziness Priority: Secondary Status: Resolved (7) Anxiety Priority: Secondary Status: Chronic (8) Chronic pain Priority: Secondary Status: Chronic Qualifiers: Chronic pain type: chronic pain syndrome Qualified Code(s): G89.4 - Chronic pain syndrome Hospital course: Ms. Chambers is a 46 year old female with hx of asthma and HTN presented to ED with dizziness. She was subsequently placed in observation. Ms Chambers was placed in observation for dizziness. There was concern this was due to meds. Her meds were held and adjusted. She had improvement in her symptoms. Her blood pressure was very labile. Her meds were reviewed and today she was seen by nephrology for further management. Her BP is currently stable and she is ready for discharge home with outpatient follow up. Discharge discussed with: patient, family Time spent discussing smoking cessation with patient: 3 to 10 minutes - Time Spent with Patient Total time spent providing and/or coordinating discharge services: - Discharge Medications Prescriptions: Spironolactone [Aldactone] 25 mg PO Q48H #30 tablet Home Medications: Albuterol Sulfate [Albuterol Inhaler] 90 mcg IH Q4HR PRN 03/27/15 [History] Azelastine 1% Nasal [place] [Astelin] 1 spr NS BID 03/27/15 [History] Calcium Carbonate/Vitamin D3 [Calcium 600 + D Tablet] 1 each PO DAILY 03/27/15 [ History] Cetirizine HCl [Zyrtec] 10 mg PO DAILY 03/27/15 [History] Cyclobenzaprine [Flexeril] 10 mg PO TID 03/27/15 [History] EPINEPHrine PACK [EPINEPHrine] 0.3 mg IM ONCE PRN 03/27/15 [History] Fluticasone Propionate Nasal [Flonase] 1 spray NS DAILY 03/27/15 [History] Mometasone Furoate [Asmanex] 110 mcg IH BID 03/27/15 [History] Montelukast [Singulair] 10 mg PO DAILY 03/27/15 [History] Ezetimibe [Zetia] 10 mg PO DAILY 04/20/17 [History] Fenofibrate Nanocrystallized [Triglide] 160 mg PO DAILY 04/20/17 [History] Gabapentin [Neurontin] 300 mg PO TID 04/20/17 [History] Metoprolol XL (24 HR) Succ [Toprol Xl] 25 mg PO DAILY 04/20/17 [History] Paroxetine HCl [Paxil] 40 mg PO DAILY 04/20/17 [History] Ranitidine HCl [Acid Pier Master] 150 mg PO BID 04/20/17 [History] Aspirin Enteric Coated [Aspirin EC] 81 mg PO DAILY #30 tablet. 04/22/17 [Rx] Potassium Chloride Elixir [Potassium Chloride] 10 meq PO DAILY 08/10/17 [History ] ALPRAZolam [Xanax 0.25 MG Tablet] 0.25 mg PO BID PRN 5 Days #10 tablet 08/11/17 [Rx] Butalb/Acetaminophen/Caffeine [Fioricet 50-300-40 mg Capsule] 1 each PO DAILY PRN #12 capsule 08/11/17 [Rx] amLODIPine [Norvasc] 5 mg PO DAILY #30 tablet 08/11/17 [Rx] Acetaminophen [Tylenol] 650 mg PO Q6HR PRN tablet 08/14/17 [Rx] Cholecalciferol (D-3) [Vitamin D] 1,000 unit PO DAILY tablet 08/14/17 [Rx] Nicotine Patch [Nicoderm] 21 mg TD DAILY patch.td24 08/14/17 [Rx] Spironolactone [Aldactone] 25 mg PO Q48H #30 tablet 08/14/17 [Rx] Allergies/Adverse Reactions: 3 Allergy/AdvReac Type Severity Reaction Status Date / Time diazepam [From Valium] Allergy Severe Swelling Verified 08/08/17 12:03 of Lip/Tongue/Throat duloxetine [From Cymbalta] Allergy Severe Swelling Verified 08/08/17 12:03 of Lip/Tongue/Throat Minocycline Allergy Severe Swelling Verified 08/08/17 12:03 of Lip/Tongue/Throat olanzapine [From Zyprexa] Allergy Severe Swelling Verified 08/08/17 12:03 of Lip/Tongue/Throat iodine Allergy Mild SWELLING, Verified 08/08/17 12:03 SOB methylprednisolone Allergy Mild SWELLING,SO Verified 08/08/17 12:03 [From Medrol] B hydrocodone Allergy Swelling Verified 08/08/17 12:03 of Lip/Tongue/Throat Iodinated Contrast- Oral and Allergy Swelling Verified 08/08/17 12:03 IV Dye of Lip/Tongue/Throat Onion Allergy Swelling Verified 08/08/17 12:03 of Lip/Tongue/Throat Oxycodone [From Percocet] AdvReac Mild Vomiting Verified 08/08/17 12:03 Date of admission: 08/12/17 09:02 Primary care physician: Michaelle William CNP Consults: 08/12/17 10:12 Consult to Director Enterprise Sales [CONS] Routine Reason for SW Consult: re-admission 08/14/17 08:13 Consult to Nephrology [CONS] Routine Consulting Provider: Cj Nayak Reason for Consult: HTN Time Notified: 08:00 Call Completed: Yes Discharging clinician: Haroon Serrano Anticipated date of discharge: 08/14/17 - Constitutional Vitals: Temp Pulse Resp BP Pulse Ox 97.3 F L 59 16 133/89 97 08/14/17 11:04 08/14/17 11:04 08/14/17 11:04 08/14/17 11:04 08/14/17 11:04 General appearance: Present: cooperative, A&O X 3, answers questions appropriately - Head Head exam: Present: normocephalic - Eye Eye exam: Present: conjuntiva pink - ENT ENT exam: Present: mucous membranes moist - Respiratory Respiratory exam: Present: CTAB. Absent: rales, rhonchi, wheezes - Cardiovascular Cardiovascular exam: Present: RRR. Absent: tachycardia - GI/Abdominal GI/Abdominal exam: Present: soft. Absent: tenderness - Extremities Exam Extremities exam: Present: warm. Absent: tenderness - Neurological Exam Neurological exam: Present: alert, oriented X3, no focal deficits - Skin Skin exam: Present: dry, warm - Patient Status Disposition: Home, Self-Care Condition: Good Functional capacity at discharge: independent ambulation Overall status at discharge: patient is progressing back to baseline - Ambulatory Orders Ambulatory Orders: US retroperitoneal limited [US] Time Frame: 1 Week, Facility: [facility], Location: Radiology - Discharge Instructions Instructions: Chest Pain (DC) Follow Up With: Michaelle William CNP [Primary Care Provider] - Cj Nayak MD [Partnered Physician] - (Follow up in office in 1- 2 weeks.) Additional Instructions: Stop Clonidine and Hydrochlorithiazide. Take Metoprolol at night and Amlodipine in the AM Take Aldactone every other day. Can take additional one if blood pressure markedly elevated (greater than 160/95). - Diet and Activity Activity: increase activity as tolerated Diet: low fat, low cholesterol, low salt diet
[2017-08-14 15:17] LABS: Protein/Creatinine Ratio,Urine 0.08 mg/mg (0.00-0.20)
--- NOTE | 2017-08-14 19:19 | Electrocardiograph Report ---
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
--- NOTE | 2017-08-15 07:25 | Electrocardiograph Report ---
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
[2017-08-16 17:02] LABS: Metanephrine, Plasma 0.12 nmol/L (0.00-0.49)
== END 2017-08-14 16:30 | disposition home or self-care (01) ==
LOC: EMEROO 03:18 → INTOOBSV 09:02 → 3BNU 09:02 → SUATTDRO 09:02 → 3BNU 09:44
PROVIDERS: ADMIT Family Medicine; ATTEND Internal Medicine

== ENCOUNTER 2017-09-22 20:33 | Inpatient (IN) ==
[2017-09-22] MEDS ORDERED: *HR* FentaNYL (PF) 100 MCG/2 ML VIAL IVP ONE (20:47)
[2017-09-22] MEDS ORDERED: Ondansetron 4 MG/2 ML VIAL IVP ONE (20:47)
--- NOTE | 2017-09-22 21:07 | Emergency Department Note ---
Disposition Clinical Impression: Tobacco dependence Deep vein thrombosis of lower extremity Qualifiers: Affected thrombotic vein of extremity: femoral Chronicity: acute Laterality: right Qualified Code(s): I82.411 - Acute embolism and thrombosis of right femoral vein Disposition: Admitted As Inpatient Condition: Good Referrals: Michaelle William CNP [Primary Care Provider] - Forms: ED Satisfaction Letter Time of Disposition: 22:31 Extremity Problem HPI - General Chief complaint: ED Extremity Injury, Lower Stated complaint: R leg DVT Time Seen by Provider: 09/22/17 20:41 Source: patient Mode of arrival: ambulatory Limitations: no limitations Nursing Notes Reviewed: Yes Vital Signs Reviewed: Yes - History of Present Illness HPI Narrative: Patient presents to the ED with the complaint of a right lower extremity DVT. Patient had a heart catheter 4 days ago with cardiology here. States she had pain and swelling to the area of the thought was a side effect from the catheter. States that they ordered an outpatient ultrasound of her right lower extremity and found a femoral DVT. States that her deputy treasurer sent her over here for admission and heparinization and that he would see her in the morning. She does complain of increasing pain to the area. No fever, chest pain, shortness of breath, abdominal pain. No previous history of DVT. Pain Scale: 9 - Related Data Home Medications Medication Instructions Recorded Confirmed Albuterol Sulfate [Albuterol 90 mcg IH Q4HR PRN 03/27/15 09/22/17 Inhaler] Azelastine 1% Nasal [place] [Astelin] 1 spr NS BID 03/27/15 09/22/17 Calcium Carbonate/Vitamin D3 1 each PO DAILY 03/27/15 09/22/17 [Calcium 600 + D Tablet] Cetirizine HCl [Zyrtec] 10 mg PO DAILY 03/27/15 09/22/17 Cyclobenzaprine [Flexeril] 10 mg PO TID PRN 03/27/15 09/22/17 EPINEPHrine PACK [EPINEPHrine] 0.3 mg IM ONCE PRN 03/27/15 09/22/17 Fluticasone Propionate Nasal 1 spray NS DAILY 03/27/15 09/22/17 [Flonase] Mometasone Furoate [Asmanex] 110 mcg IH BID 03/27/15 09/22/17 Montelukast [Singulair] 10 mg PO DAILY 03/27/15 09/22/17 Gabapentin [Neurontin] 300 mg PO TID 04/20/17 09/22/17 Metoprolol XL (24 HR) Succ [Toprol 25 mg PO DAILY 04/20/17 09/22/17 Xl] Paroxetine HCl [Paxil] 60 mg PO DAILY 04/20/17 09/22/17 Ranitidine HCl [Acid Senior Programmer] 150 mg PO BID 04/20/17 09/22/17 Potassium Chloride Elixir 10 meq PO DAILY 08/10/17 09/22/17 [Potassium Chloride] Atorvastatin [Lipitor] 40 mg PO HS 09/18/17 09/22/17 Nitroglycerin [Nitrostat] 0.4 mg SL DAILY PRN 09/18/17 09/22/17 Previous Rx's Medication Instructions Recorded Aspirin Enteric Coated [Aspirin EC] 81 mg PO DAILY #30 tablet. 04/22/17 Butalb/Acetaminophen/Caffeine 1 each PO DAILY PRN #12 capsule 08/11/17 [Fioricet 50-300-40 mg Capsule] amLODIPine [Norvasc] 5 mg PO DAILY #30 tablet 08/11/17 Acetaminophen [Tylenol] 650 mg PO Q6HR PRN tablet 08/14/17 Cholecalciferol (D-3) [Vitamin D] 1,000 unit PO DAILY tablet 08/14/17 Spironolactone [Aldactone] 25 mg PO Q48H #30 tablet 08/14/17 Allergies Allergy/AdvReac Type Severity Reaction Status Date / Time diazepam [From Valium] Allergy Severe Swelling Verified 09/22/17 22:06 of Lip/Tongue/Throat duloxetine [From Cymbalta] Allergy Severe Swelling Verified 09/22/17 22:06 of Lip/Tongue/Throat Minocycline Allergy Severe Swelling Verified 09/22/17 22:06 of Lip/Tongue/Throat olanzapine [From Zyprexa] Allergy Severe Swelling Verified 09/22/17 22:06 of Lip/Tongue/Throat iodine Allergy Mild SWELLING, Verified 09/22/17 22:06 SOB methylprednisolone Allergy Mild SWELLING,SO Verified 09/22/17 22:06 [From Medrol] B hydrocodone Allergy Swelling Verified 09/22/17 22:06 of Lip/Tongue/Throat Iodinated Contrast- Oral and Allergy Swelling Verified 09/22/17 22:06 IV Dye of Lip/Tongue/Throat Onion Allergy Swelling Verified 09/22/17 22:06 of Lip/Tongue/Throat Oxycodone [From Percocet] AdvReac Mild Vomiting Verified 09/22/17 22:06 Review of Systems: As reviewed in the HPI. All other systems reviewed are negative or normal. Past Medical History - Past Medical History Attestation: Yes The following information was validated with the patient. 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 - Social History Smoking Status: Current every day smoker Smokeless Tobacco Status: No Alcohol use: Reports: none Drug use: Reports: none Physical Exam - General General appearance: alert, in no apparent distress - Head Head exam: atraumatic, normocephalic, normal inspection - Eye Eye exam: Present: normal appearance, PERRL, EOMI - Neck Neck exam: Present: normal inspection, full ROM, trachea midline - Respiratory Respiratory exam: Present: normal lung sounds bilaterally - Cardiovascular Cardiovascular exam: Present: regular rate, normal rhythm, normal heart sounds - Abdominal Exam Abdominal exam: Present: soft, Non-Tender. Absent: tenderness, distention, guarding, rebound, rigidity - Expanded Lower Extremity Exam Hip/Pelvis exam: Present: other (R groin tenderness, small hematoma ) - Neurological Exam Neurological exam: Present: alert, oriented X3 - Psychiatric Psychiatric exam: Present: anxious - Skin Skin exam: Present: warm, dry, intact, normal color Course Course Narrative: Patient presenting with reported right femoral DVT. States that this was just done as an outpatient. We will try to get that report. States her deputy treasurer and her we are for heparinization and that he would see her in the morning. - Reevaluation(s) Reevaluation #1: I did eventually get in touch with the semiconductor lab technician that did the study. States that there was a femoral DVT and possible AV fistula, but no arterial pseudoaneurysm or rapidly expanding hematoma. On exam, the patient does have swelling and tenderness medially, which would be more consistent with a venous injury. I spoke with the on-call vascular surgeon, Dr. Painter . He states that he did not see any contraindications to heparinization at this time, but that he would review the study in the morning. We will go ahead and start the patient on heparin and admitted to the hospitalist service. Patient's pain was much better under control after initial dose of fentanyl. Vital Signs Temperature 98.1 F 09/22/17 20:43 Pulse Rate 75 09/22/17 20:43 Respiratory Rate 15 09/22/17 20:43 Blood Pressure 135/82 09/22/17 20:43 O2 Sat by Pulse Oximetry 98 09/22/17 20:43 Temperature 98.1 F 09/22/17 20:43 Pulse Rate 75 09/22/17 20:43 Respiratory Rate 15 09/22/17 20:43 Blood Pressure 135/82 09/22/17 20:43 O2 Sat by Pulse Oximetry 98 09/22/17 20:43 Oxygen Delivery Oxygen Delivery Room Air Extremity Problem, Nontraumati - Lab Data Result diagrams: 09/22/17 21:00 09/22/17 21:00 Lab Results 09/22/17 09/22/17 09/22/17 Range/Units 21:00 21:00 21:00 WBC 17.9 H (4.3-11.1) K/mcL RBC 4.85 (3.82-4.97) M/mcL Hgb 14.1 (11.5-15.4) g/dL Hct 42.5 (35.3-44.9) % MCV 87.6 (83.0-100.0) fL MCH 29.1 (28.0-33.3) pg MCHC 33.2 (31.6-35.5) g/dL RDW 14.6 H (11.5-14.5) % Plt Count 313 (140-400) K/mcL MPV 8.8 L (9.4-12.4) fL Immature Gran % 0.6 (0-4) % Seg Neutrophils % 66.8 % Lymphocytes % 26.8 % Monocytes % 4.2 % Eosinophils % 1.2 % Basophils % 0.4 % Neutrophils # 11.9 H (1.6-8.9) K/mcL Lymphocytes # 4.8 H (0.6-4.6) K/mcL Monocytes # 0.8 (0.0-1.3) K/mcL Eosinophils # 0.2 (0.0-0.6) K/mcL Basophils # 0.1 (0.0-0.2) K/mcL PT 11.1 (9.4-12.1) Seconds INR 1.0 APTT 32.3 (26.0-36.0) Seconds Sodium 139 (136-145) mEq/L Potassium 3.3 L (3.5-5.1) mEq/L Chloride 108 H (98-107) mEq/L Carbon Dioxide 23 (23-29) mEq/L BUN 8 (6-20) mg/dL Creatinine 0.72 (0.60-1.20) mg/dL Est GFR ( Amer) > 60 (> 60) Est GFR (Non-Af Amer) > 60 (> 60) BUN/Creatinine Ratio 11 (6-26) Glucose 125 H (70-105) mg/dL Calculated Osmolality 288 (280-300) Calcium 9.0 (8.6-10.3) mg/dL Attestation Statement - Attestation Attestation: I examined this patient and my medical decision-making was reviewed with the Resident Physician. I agree with the documented findings, disposition and treatment plan as described except to the extent set forth below.
[2017-09-22 21:25] LABS: Basophils # 0.1 K/mcL (0.0-0.2); Basophils % 0.4 %; Eosinophils # 0.2 K/mcL (0.0-0.6); Eosinophils % 1.2 %; Hematocrit 42.5 % (35.3-44.9); Hemoglobin 14.1 g/dL (11.5-15.4); Immature Granulocytes % 0.6 % (0-4); Lymphocytes # 4.8 K/mcL (0.6-4.6); Lymphocytes % 26.8 %; Mean Corpuscular HGB Conc 33.2 g/dL (31.6-35.5); Mean Corpuscular Hemoglobin 29.1 pg (28.0-33.3); Mean Corpuscular Volume 87.6 fL (83.0-100.0); Mean Platelet Volume 8.8 fL (9.4-12.4); Monocytes # 0.8 K/mcL (0.0-1.3); Monocytes % 4.2 %; Neutrophils # 11.9 K/mcL (1.6-8.9); Platelet Count 313 K/mcL (140-400); Red Blood Count 4.85 M/mcL (3.82-4.97); Red Cell Distribution Width 14.6 % (11.5-14.5); Segmented Neutrophils % 66.8 %
[2017-09-22 21:30] LABS: Prothrombin Time 11.1 Seconds (9.4-12.1)
[2017-09-22 21:33] LABS: Activated Partial Thrombo Time 32.3 Seconds (26.0-36.0)
[2017-09-22 21:44] LABS: BUN/Creatinine Ratio 11 (6-26); Blood Urea Nitrogen 8 mg/dL (6-20); Carbon Dioxide 23 mEq/L (23-29); Chloride 108 mEq/L (98-107); Glucose 125 mg/dL (70-105); Osmolality,Calculated 288 (280-300); Potassium 3.3 mEq/L (3.5-5.1); Sodium 139 mEq/L (136-145); eGFR For African Americans > 60 (> 60); eGFR For Non-African Americans > 60 (> 60)
[2017-09-22] MEDS ORDERED: Heparin 25,000 UNIT/500 ML D5W 25,000 UNIT/500 ML BAG IVC SCH (22:00)
[2017-09-22] MEDS ORDERED: *HR* Heparin 5,000 UNIT/ML VIAL IVP ONE (22:00)
--- NOTE | 2017-09-22 22:39 | Emergency Department Note ---
Disposition Clinical Impression: Tobacco dependence Deep vein thrombosis of lower extremity Qualifiers: Affected thrombotic vein of extremity: femoral Chronicity: acute Laterality: right Qualified Code(s): I82.411 - Acute embolism and thrombosis of right femoral vein Disposition: Admitted As Inpatient Condition: Good Referrals: Michaelle William TRUCK SWITCHER [Primary Care Provider] - Forms: ED Satisfaction Letter General Adult HPI - General Chief complaint: ED Extremity Injury, Lower Stated complaint: R leg DVT Time Seen by Provider: 09/22/17 20:41 Source: patient Mode of arrival: ambulatory Limitations: no limitations - History of Present Illness Pain Scale: 9 - Related Data Home Medications Medication Instructions Recorded Confirmed Albuterol Sulfate [Albuterol 90 mcg IH Q4HR PRN 03/27/15 09/22/17 Inhaler] Azelastine 1% Nasal [place] [Astelin] 1 spr NS BID 03/27/15 09/22/17 Calcium Carbonate/Vitamin D3 1 each PO DAILY 03/27/15 09/22/17 [Calcium 600 + D Tablet] Cetirizine HCl [Zyrtec] 10 mg PO DAILY 03/27/15 09/22/17 Cyclobenzaprine [Flexeril] 10 mg PO TID PRN 03/27/15 09/22/17 EPINEPHrine PACK [EPINEPHrine] 0.3 mg IM ONCE PRN 03/27/15 09/22/17 Fluticasone Propionate Nasal 1 spray NS DAILY 03/27/15 09/22/17 [Flonase] Mometasone Furoate [Asmanex] 110 mcg IH BID 03/27/15 09/22/17 Montelukast [Singulair] 10 mg PO DAILY 03/27/15 09/22/17 Gabapentin [Neurontin] 300 mg PO TID 04/20/17 09/22/17 Metoprolol XL (24 HR) Succ [Toprol 25 mg PO DAILY 04/20/17 09/22/17 Xl] Paroxetine HCl [Paxil] 60 mg PO DAILY 04/20/17 09/22/17 Ranitidine HCl [Acid Mud Analysis Well Logging Captain] 150 mg PO BID 04/20/17 09/22/17 Potassium Chloride Elixir 10 meq PO DAILY 08/10/17 09/22/17 [Potassium Chloride] Atorvastatin [Lipitor] 40 mg PO HS 09/18/17 09/22/17 Nitroglycerin [Nitrostat] 0.4 mg SL DAILY PRN 09/18/17 09/22/17 Previous Rx's Medication Instructions Recorded Aspirin Enteric Coated [Aspirin EC] 81 mg PO DAILY #30 tablet. 04/22/17 Butalb/Acetaminophen/Caffeine 1 each PO DAILY PRN #12 capsule 08/11/17 [Fioricet 50-300-40 mg Capsule] amLODIPine [Norvasc] 5 mg PO DAILY #30 tablet 08/11/17 Acetaminophen [Tylenol] 650 mg PO Q6HR PRN tablet 08/14/17 Cholecalciferol (D-3) [Vitamin D] 1,000 unit PO DAILY tablet 08/14/17 Spironolactone [Aldactone] 25 mg PO Q48H #30 tablet 08/14/17 Allergies Allergy/AdvReac Type Severity Reaction Status Date / Time diazepam [From Valium] Allergy Severe Swelling Verified 09/22/17 22:06 of Lip/Tongue/Throat duloxetine [From Cymbalta] Allergy Severe Swelling Verified 09/22/17 22:06 of Lip/Tongue/Throat Minocycline Allergy Severe Swelling Verified 09/22/17 22:06 of Lip/Tongue/Throat olanzapine [From Zyprexa] Allergy Severe Swelling Verified 09/22/17 22:06 of Lip/Tongue/Throat iodine Allergy Mild SWELLING, Verified 09/22/17 22:06 SOB methylprednisolone Allergy Mild SWELLING,SO Verified 09/22/17 22:06 [From Medrol] B hydrocodone Allergy Swelling Verified 09/22/17 22:06 of Lip/Tongue/Throat Iodinated Contrast- Oral and Allergy Swelling Verified 09/22/17 22:06 IV Dye of Lip/Tongue/Throat Onion Allergy Swelling Verified 09/22/17 22:06 of Lip/Tongue/Throat Oxycodone [From Percocet] AdvReac Mild Vomiting Verified 09/22/17 22:06 Past Medical History - Past Medical History Medical history: Reports: asthma, GERD, hyperlipidemia, hypertension, other Surgical history: Reports: appendectomy, cholecystectomy, hysterectomy, orthopedic, other, BIBIANA/BSO, other Psychiatric history: Reports: anxiety, depression 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 - Social History Smoking Status: Current every day smoker Smokeless Tobacco Status: No Alcohol use: Reports: none Drug use: Reports: none Physical Exam - General Limitations: no limitations General appearance: alert, in no apparent distress Course Vital Signs Temperature 98.1 F 09/22/17 20:43 Pulse Rate 75 09/22/17 20:43 Respiratory Rate 15 09/22/17 20:43 Blood Pressure 135/82 09/22/17 20:43 O2 Sat by Pulse Oximetry 98 09/22/17 20:43 Temperature 98.1 F 09/22/17 20:43 Pulse Rate 75 09/22/17 20:43 Respiratory Rate 15 09/22/17 20:43 Blood Pressure 135/82 09/22/17 20:43 O2 Sat by Pulse Oximetry 98 09/22/17 20:43 Oxygen Delivery Oxygen Delivery Room Air Medical Decision Making - Lab Data Result diagrams: 09/22/17 21:00 09/22/17 21:00 Lab Results 09/22/17 09/22/17 09/22/17 Range/Units 21:00 21:00 21:00 WBC 17.9 H (4.3-11.1) K/mcL RBC 4.85 (3.82-4.97) M/mcL Hgb 14.1 (11.5-15.4) g/dL Hct 42.5 (35.3-44.9) % MCV 87.6 (83.0-100.0) fL MCH 29.1 (28.0-33.3) pg MCHC 33.2 (31.6-35.5) g/dL RDW 14.6 H (11.5-14.5) % Plt Count 313 (140-400) K/mcL MPV 8.8 L (9.4-12.4) fL Immature Gran % 0.6 (0-4) % Seg Neutrophils % 66.8 % Lymphocytes % 26.8 % Monocytes % 4.2 % Eosinophils % 1.2 % Basophils % 0.4 % Neutrophils # 11.9 H (1.6-8.9) K/mcL Lymphocytes # 4.8 H (0.6-4.6) K/mcL Monocytes # 0.8 (0.0-1.3) K/mcL Eosinophils # 0.2 (0.0-0.6) K/mcL Basophils # 0.1 (0.0-0.2) K/mcL PT 11.1 (9.4-12.1) Seconds INR 1.0 APTT 32.3 (26.0-36.0) Seconds Sodium 139 (136-145) mEq/L Potassium 3.3 L (3.5-5.1) mEq/L Chloride 108 H (98-107) mEq/L Carbon Dioxide 23 (23-29) mEq/L BUN 8 (6-20) mg/dL Creatinine 0.72 (0.60-1.20) mg/dL Est GFR ( Amer) > 60 (> 60) Est GFR (Non-Af Amer) > 60 (> 60) BUN/Creatinine Ratio 11 (6-26) Glucose 125 H (70-105) mg/dL Calculated Osmolality 288 (280-300) Calcium 9.0 (8.6-10.3) mg/dL Attestation Statement - Attestation Attestation: I examined this patient and my medical decision-making was reviewed with the Resident Physician. I agree with the documented findings, disposition and treatment plan as described except to the extent set forth below. 47-year-old female presents ED because of right leg pain. One week ago she underwent diagnostic cardiac catheterization revealing insignificant coronary disease. She has since developed progressive pain in the right lower extremity. She was undergoing arterial vascular study today to rule out pseudoaneurysm and that was identified that she has a DVT in the right femoral vein proximally. Is also question of an possible arteriovenous fistula at that site. She was sent to the emergency department to be heparinized and admitted. Denies any chest pain or dyspnea. No claudication pain. No abdominal pain. No flank or back pain. She is a pack-a-day smoker. Patient is in no apparent distress. Abdomen soft nontender. No bruising or swelling of the flanks. Small amount of ecchymosis in the right groin area. Pulse is present. Distal pulses are present in the lower extremity. She will be started on standard dose IV heparin and admitted.
--- NOTE | 2017-09-23 00:11 | Internal Med History&Physical ---
Date of Encounter: 09/23/17 Time of Encounter: 00:09 Assessment and Plan (1) HLD (hyperlipidemia) Current visit: No Status: Chronic Chronic resume home medication Qualifiers: Hyperlipidemia type: pure hypercholesterolemia Qualified Code(s): E78.00 - Pure hypercholesterolemia, unspecified; E78.0 - Pure hypercholesterolemia (2) Asthma Current visit: No Status: Chronic No active wheezing at present Qualifiers: Asthma severity: mild Asthma persistence: intermittent Asthma complication type: uncomplicated Qualified Code(s): J45.20 - Mild intermittent asthma, uncomplicated (3) Chronic GERD Current visit: No Status: Chronic Chronic resume home medication (4) Hypertension Current visit: No Status: Chronic Chronic blood pressure well controlled Qualifiers: Hypertension type: essential hypertension Qualified Code(s): I10 - Essential (primary) hypertension (5) Tobacco dependence Current visit: Yes Status: Chronic Chronic (6) Chronic pain Current visit: No Status: Chronic Qualifiers: Chronic pain type: chronic pain syndrome Qualified Code(s): G89.4 - Chronic pain syndrome (7) Deep vein thrombosis of lower extremity Current visit: Yes Status: Acute . started on heparin drip vascular surgery consulted for possible AV fistula Qualifiers: Affected thrombotic vein of extremity: femoral Chronicity: acute Laterality: right Qualified Code(s): I82.411 - Acute embolism and thrombosis of right femoral vein Internal Medicine - H&P: HPI Chief complaint: right groin dvt Admitted From: Emergency Dept Plans for Post Hospital Care: Home History of present illness: Ms. Chambers is a 47 year old female Patient with history of asthma, GERD, high cholesterol, hypertension. Patient had a cardiac catheter done about 4 days ago which showed normal coronaries patient was seen in the office with a swollen groin at the site of the cardiac catheter she was sent for outpatient ultrasound which shows DVT and possible AV fistula patient was sent to the emergency room to be admitted. She will be seen tomorrow by vascular surgery in consultation and already started on heparin drip. No chest pain or shortness of breath Past Med Surg Social Fam HX - Past Medical History Medical history: asthma, GERD, hyperlipidemia, hypertension, other Psychiatric history: anxiety, depression - Past Surgical History Surgical History: appendectomy, cholecystectomy, hysterectomy, orthopedic, other , BIBIANA/BSO, other - Social History Smoking Status: Current every day smoker Smokeless Tobacco Status: No Alcohol use: none Drug use: none - Family History Father Family Member Ethnicity: Non- Living Status: Hx Family Cardiac Disorders: Yes (4-[place]) Hx Family Respiratory Disorders: No Hx Family Cancer: Yes (throat) Hx Family GI Disorders: No Hx Family Endocrine Disorder: No Hx Family Neuromuscular Disorders: No Hx Family Neurologic Disorders: No Hx Family HEENT Disorders: No Hx Family Autoimmune Disorders: No Mother Family Member Ethnicity: Non- Living Status: Still Living Hx Family Cardiac Disorders: No Hx Family Respiratory Disorders: No Hx Family Cancer: No Hx Family GI Disorders: No Hx Family Endocrine Disorder: No Hx Family Neuromuscular Disorders: No Hx Family Neurologic Disorders: No Hx Family HEENT Disorders: No Hx Family Autoimmune Disorders: No Sister Family Member Ethnicity: Non- Living Status: Still Living Hx Family Cardiac Disorders: No Hx Family Respiratory Disorders: Yes Hx Family Cancer: Yes Hx Family GI Disorders: No Hx Family Endocrine Disorder: No Hx Family Neuromuscular Disorders: No Hx Family Neurologic Disorders: No Hx Family HEENT Disorders: No Hx Family Autoimmune Disorders: No Internal Medicine - H&P: Meds Albuterol Sulfate [Albuterol Inhaler] 90 mcg IH Q4HR PRN 03/27/15 [History] Azelastine 1% Nasal [place] [Astelin] 1 spr NS BID 03/27/15 [History] Calcium Carbonate/Vitamin D3 [Calcium 600 + D Tablet] 1 each PO DAILY 03/27/15 [ History] Cetirizine HCl [Zyrtec] 10 mg PO DAILY 03/27/15 [History] Cyclobenzaprine [Flexeril] 10 mg PO TID PRN 03/27/15 [History] EPINEPHrine PACK [EPINEPHrine] 0.3 mg IM ONCE PRN 03/27/15 [History] Fluticasone Propionate Nasal [Flonase] 1 spray NS DAILY 03/27/15 [History] Mometasone Furoate [Asmanex] 110 mcg IH BID 03/27/15 [History] Montelukast [Singulair] 10 mg PO DAILY 03/27/15 [History] Gabapentin [Neurontin] 300 mg PO TID 04/20/17 [History] Metoprolol XL (24 HR) Succ [Toprol Xl] 25 mg PO DAILY 04/20/17 [History] Paroxetine HCl [Paxil] 60 mg PO DAILY 04/20/17 [History] Ranitidine HCl [Acid Mr Teacher] 150 mg PO BID 04/20/17 [History] Aspirin Enteric Coated [Aspirin EC] 81 mg PO DAILY #30 tablet. 04/22/17 [Rx] Potassium Chloride Elixir [Potassium Chloride] 10 meq PO DAILY 08/10/17 [History ] Butalb/Acetaminophen/Caffeine [Fioricet 50-300-40 mg Capsule] 1 each PO DAILY PRN #12 capsule 08/11/17 [Rx] amLODIPine [Norvasc] 5 mg PO DAILY #30 tablet 08/11/17 [Rx] Acetaminophen [Tylenol] 650 mg PO Q6HR PRN tablet 08/14/17 [Rx] Cholecalciferol (D-3) [Vitamin D] 1,000 unit PO DAILY tablet 08/14/17 [Rx] Spironolactone [Aldactone] 25 mg PO Q48H #30 tablet 08/14/17 [Rx] Atorvastatin [Lipitor] 40 mg PO HS 09/18/17 [History] Nitroglycerin [Nitrostat] 0.4 mg SL DAILY PRN 09/18/17 [History] 3 Allergy/AdvReac Type Severity Reaction Status Date / Time diazepam [From Valium] Allergy Severe Swelling Verified 09/22/17 22:06 of Lip/Tongue/Throat duloxetine [From Cymbalta] Allergy Severe Swelling Verified 09/22/17 22:06 of Lip/Tongue/Throat Minocycline Allergy Severe Swelling Verified 09/22/17 22:06 of Lip/Tongue/Throat olanzapine [From Zyprexa] Allergy Severe Swelling Verified 09/22/17 22:06 of Lip/Tongue/Throat iodine Allergy Mild SWELLING, Verified 09/22/17 22:06 SOB methylprednisolone Allergy Mild SWELLING,SO Verified 09/22/17 22:06 [From Medrol] B hydrocodone Allergy Swelling Verified 09/22/17 22:06 of Lip/Tongue/Throat Iodinated Contrast- Oral and Allergy Swelling Verified 09/22/17 22:06 IV Dye of Lip/Tongue/Throat Onion Allergy Swelling Verified 09/22/17 22:06 of Lip/Tongue/Throat Oxycodone [From Percocet] AdvReac Mild Vomiting Verified 09/22/17 22:06 All Systems PM: A 10-system review of systems was performed and is negative for pertinent findings except as documented above in the HPI. - Constitutional Constitutional: no chills, no fever(s), no night sweats - EENT Eyes: no change in vision, no discharge, no pain, no photophobia Ears: no ear discharge, no ear pain, no tinnitus Nose, mouth and throat: no dysphagia, no nasal discharge, no neck pain, no sore throat - Cardiovascular Cardiovascular ROS IM: no chest pain, no diaphoresis, no dyspnea, no lightheadedness, no palpitations, no syncope - Respiratory Respiratory: no cough, no dyspnea, no wheezing, no excessive phlegm production - Gastrointestinal Gastrointestinal: no abdominal pain, no diarrhea, no hematemesis, no hematochezia, no melena, no nausea, no vomiting - Genitourinary Genitourinary: no change in urinary stream, no dysuria, no flank pain, no hematuria - Constitutional Vitals: Temp Pulse Resp BP Pulse Ox 98 F 75 16 132/80 98 09/22/17 23:50 09/22/17 20:43 09/22/17 23:50 09/22/17 23:50 09/22/17 20:43 - Head Head exam: Present: atraumatic, normocephalic - Eye Eye exam: Present: PERRL, conjuntiva pink, sclera anicteric Pupils: Present: PERRL - Neck Neck exam general surgery: Present: supple, trachea midline. Absent: lymphadenopathy - Cardiovascular Cardiovascular exam: Present: RRR, +S1, +S2. Absent: diastolic murmur, gallop, rubs, systolic murmur - GI/Abdominal GI/Abdominal exam: Present: normal bowel sounds, soft, no peritoneal signs. Absent: distended, tenderness Internal Med - H&P Results - Labs CBC & Chem 7: 09/22/17 21:00 09/22/17 21:00
[2017-09-23] MEDS ORDERED: Acetaminophen 325 MG TABLET PO PRN ×2 (00:18→00:21)
[2017-09-23] MEDS ORDERED: Naloxone 0.4 MG/ML INJ IVP PRN (00:18)
[2017-09-23] MEDS ORDERED: Acetaminophen/Butalbital/CaffeineTABLET PO PRN (00:21)
[2017-09-23] MEDS: traMADol 50 MG TABLET PO PRN ×2 (01:28→08:13)
[2017-09-23] MEDS: Nicotine 14 MG PATCH.TD24 TD SCH (03:16)
[2017-09-23 04:28] LABS: Basophils # 0.1 K/mcL (0.0-0.2); Basophils % 0.5 %; Eosinophils # 0.2 K/mcL (0.0-0.6); Eosinophils % 1.4 %; Hematocrit 42.3 % (35.3-44.9); Hemoglobin 13.8 g/dL (11.5-15.4); Immature Granulocytes % 0.5 % (0-4); Lymphocytes # 5.7 K/mcL (0.6-4.6); Lymphocytes % 34.3 %; Mean Corpuscular HGB Conc 32.6 g/dL (31.6-35.5); Mean Corpuscular Hemoglobin 28.5 pg (28.0-33.3); Mean Corpuscular Volume 87.4 fL (83.0-100.0); Mean Platelet Volume 8.9 fL (9.4-12.4); Monocytes # 0.9 K/mcL (0.0-1.3); Monocytes % 5.2 %; Neutrophils # 9.7 K/mcL (1.6-8.9); Platelet Count 277 K/mcL (140-400); Red Blood Count 4.84 M/mcL (3.82-4.97); Red Cell Distribution Width 14.5 % (11.5-14.5); Segmented Neutrophils % 58.1 %
[2017-09-23 04:52] LABS: BUN/Creatinine Ratio 13 (6-26); Blood Urea Nitrogen 9 mg/dL (6-20); Carbon Dioxide 24 mEq/L (23-29); Chloride 107 mEq/L (98-107); Glucose 109 mg/dL (70-105); Osmolality,Calculated 287 (280-300); Potassium 3.7 mEq/L (3.5-5.1); Sodium 139 mEq/L (136-145); eGFR For African Americans > 60 (> 60); eGFR For Non-African Americans > 60 (> 60)
[2017-09-23] MEDS: Beclomethasone 40mcg MDI IH SCH ×2 (08:08→20:18)
[2017-09-23] MEDS: Loratadine 10 MG TABLET PO SCH (08:12)
[2017-09-23] MEDS: Aspirin Enteric Coated 81 MG Tablet PO SCH (08:12)
[2017-09-23] MEDS: Cholecalciferol (D-3) 1,000 UNIT TABLET PO SCH (08:12)
[2017-09-23] MEDS: Gabapentin 300 MG CAPSULE PO SCH ×3 (08:13→21:33)
[2017-09-23] MEDS: Famotidine 20 MG TABLET PO SCH ×2 (08:13→18:12)
[2017-09-23] MEDS: amLODIPine 5 MG TABLET PO SCH (08:13)
[2017-09-23] MEDS: Metoprolol XL (24 HR) Succ 25 MG TAB.ER.24H PO SCH (08:13)
[2017-09-23] MEDS: Fluticasone Propionate Nasal 50 MCG/SPRAY BOTTLE NS SCH (08:14)
[2017-09-23] MEDS: Azelastine 0.1% Nasal Spray 30 ML BOTTLE NS SCH ×2 (08:14→21:34)
[2017-09-23] MEDS: Calcium 600 + D PO SCH (08:15)
[2017-09-23] MEDS: Potassium Chloride Elixir 20 MEQ/15 ML UDC PO SCH (08:15)
--- NOTE | 2017-09-23 08:32 | Event Note ---
<Jn Silva - Last Filed: 09/23/17 13:53> Date of Encounter: 09/23/17 Time of Encounter: 08:32 Subjective Patient seen and examined resting comfortably in bed. Patient reports nausea today and request nausea medication. Patient has continued discomfort in right groin and is on a Heparin drip. Objective Vitals: Last Vital Signs Temp 98.7 F 09/23/17 07:58 Pulse 64 09/23/17 07:58 Resp 16 09/23/17 08:08 BP 110/64 09/23/17 07:58 Pulse Ox 98 09/23/17 08:20 General appearance: Present: cooperative, mild distress, A&O X 3, pleasant Head exam: Present: atraumatic, normocephalic Eye exam: Present: PERRL, conjuntiva pink, sclera anicteric ENT exam: Present: mucous membranes moist, normal oropharynx Neck exam general surgery: Present: supple, trachea midline. Absent: lymphadenopathy Respiratory exam: Present: CTAB. Absent: accessory muscle use, rales, rhonchi, wheezes Cardiovascular exam: Present: RRR, +S1, +S2. Absent: diastolic murmur, gallop, rubs, systolic murmur GI/Abdominal exam: Present: normal bowel sounds, soft, no peritoneal signs. Absent: distended, tenderness Extremities exam: Present: ecchymosis right groin, no pedal edema, warm, radial pulses palpable and symmetrical. Absent: calf tenderness, cyanotic Back exam: Present: normal inspection. Absent: tenderness Neurological exam: Present: CN II-XII intact, oriented X3, no focal deficits. Absent: pronater drift, facial droop, speech deficit Psychiatric exam: Present: normal affect, normal mood Skin exam: Present: ecchymosis right groin, dry, intact, warm Assessment and Plan (1) Deep vein thrombosis of lower extremity Current visit: Yes Status: Acute Qualifiers: Affected thrombotic vein of extremity: femoral Chronicity: acute Laterality: right Qualified Code(s): I82.411 - Acute embolism and thrombosis of right femoral vein Swollen groin at the site of the cardiac catheterization 09/18/17 Lower extremity U/S: acute right common femoral vein thrombosis. One time dose of Vancomycin given per cardiology recommendation due to concern for thrombophlebitis and elevated WBC. Procalcitonin level is pending. Will hold further Vancomycin to prevent acute kidney injury given recent LHC. Consider blood cultures and restarting antibiotics if WBC remains elevated, patient becomes febrile, or shows signs of local infection. Vascular surgery consulted, no indication for surgical exploration at this time. Recommends local treatment with warm compresses. Stop heparin drip, patient prefers Xarelto over Coumadin for DVT treatment. Will start Xarelto 15mg PO BID for 21 days, then Xarelto 10mg PO daily to complete 3 months of treatment (2) Chronic pain Current visit: No Status: Chronic Qualifiers: Chronic pain type: chronic pain syndrome Qualified Code(s): G89.4 - Chronic pain syndrome Continue Ultram (3) HTN (hypertension) Current visit: Yes Status: Chronic Qualifiers: Hypertension type: essential hypertension Qualified Code(s): I10 - Essential (primary) hypertension Continue home meds. (4) Tobacco dependence Current visit: Yes Status: Chronic Qualifiers: Hypertension type: essential hypertension Qualified Code(s): I10 - Essential (primary) hypertension Nicotine patch. Recommend tobacco cessation. (5) Asthma Current visit: No Status: Chronic No active wheezing at present Qualifiers: Asthma severity: mild Asthma persistence: intermittent Asthma complication type: uncomplicated Qualified Code(s): J45.20 - Mild intermittent asthma, uncomplicated (6) Chronic GERD Current visit: No Status: Chronic Chronic, resume home medication (7) DVT prophylaxis Current visit: Yes Status: Chronic Qualifiers: Hypertension type: essential hypertension Qualified Code(s): I10 - Essential (primary) hypertension Heparin drip Plan discussed and agreed upon with Dr. Olivas <Serge Olivas - Last Filed: 09/23/17 15:08> Date of Encounter: 09/23/17 Please see my partner's admission note from this morning. I also interviewed and examined this patient. I discussed the case with my resident, , internal medicine resident. I agree with his findings, assessment and plan. Also discussed the case with vascular surgery, as well as cardiology. Patient remains on anticoagulation and we will look to see about starting her on Xarelto. She will need a minimum of 3 months anticoagulation for a procedure related thrombus. I do not believe this is a septic thrombophlebitis. Patient is nontoxic, afebrile. Her white blood cell count is elevated however. She did receive 1 dose of empiric vancomycin. We will follow clinically. Further disposition pending additional discussions with cardiology. All else as outlined above.
[2017-09-23] MEDS ORDERED: Nicotine 14 MG PATCH.TD24 TD SCH (09:00)
[2017-09-23] MEDS ORDERED: Spironolactone 25 MG TABLET PO SCH (09:00)
[2017-09-23] MEDS ORDERED: Ondansetron 4 MG/2 ML VIAL IVP PRN (09:45)
--- NOTE | 2017-09-23 12:30 | Vascular/Endovasc Consult Note ---
Date of Encounter: 09/23/17 Time of Encounter: 12:25 Assessment and Plan (1) Right groin mass Current Visit: Yes Status: Acute Right groin mass that is tender that has developed over the last 48 hours. Duplex scanning shows no pseudoaneurysm formation. The AV fistula is unlikely to be present. Should this be a concern I would recommend that the duplex scan of the right groin be repeated in about 1 month after the induration has improved and the edema from the DVT has resolved. I would recommend local treatment for this with warm compresses. I've discussed the case with Dr. Valdze earlier today. Empiric antibiotics will be ordered. At this point there is no indication for surgical exploration. I discussed this in detail with the patient. All questions were answered. (2) Chronic pain Current Visit: No Status: Chronic Patient has chronic pain due to spinal disease. Qualifiers: Chronic pain type: chronic pain syndrome Qualified Code(s): G89.4 - Chronic pain syndrome (3) Deep vein thrombosis of lower extremity Current Visit: Yes Status: Acute Patient is undergoing anticoagulation treatment with intravenous heparin for acute right common femoral vein DVT. Qualifiers: Affected thrombotic vein of extremity: femoral Chronicity: acute Laterality: right Qualified Code(s): I82.411 - Acute embolism and thrombosis of right femoral vein - History of Present Illness Consult date: 09/23/17 Consult reason: Right groin pain Chief complaint: Right groin pain History of present illness: Ms. Chambers is a 47 year old female Who have had undergone a cardiac catheterization on Monday. The findings were normal and patient was discharged. A Mynx closure device was utilized. On Monday the patient noted pain and swelling in the right groin access site. This persisted and she felt that the swelling was increasing in size. She had increasing pain. The patient was sent to the noninvasive lab yesterday where she had a duplex scan performed of the groin. This demonstrated an acute right common femoral vein thrombus. There is also a question raised about a abnormal venous flow suggesting an occult arterial venous fistula. No pseudoaneurysm was identified. The patient was subsequently then sent to the emergency room and was admitted for treatment for the DVT. Vascular surgery was asked to see the patient because of the concern raised about the AV fistula and the right groin pain. The patient states that the pain which began on Monday increased from onto Monday. She states it was very difficult for her to get up and walk. She denies any fevers or chills or night sweats. The patient has a long history of spinal disease and surgeries and the patient has chronic back and neck pain and muscle pain. Past Med Surg Social Fam HX - Past Medical History Medical history: asthma, GERD, hyperlipidemia, hypertension, other Psychiatric history: anxiety, depression - Past Surgical History Surgical History: appendectomy, cholecystectomy, hysterectomy, orthopedic, other , BIBIANA/BSO, other - Social History Smoking Status: Current every day smoker Packs per day: 1 Smokeless Tobacco Status: No Alcohol use: none Drug use: none - Family History Father Family Member Ethnicity: Non- Living Status: Hx Family Cardiac Disorders: Yes (4-[place]) Hx Family Respiratory Disorders: No Hx Family Cancer: Yes (throat) Hx Family GI Disorders: No Hx Family Endocrine Disorder: No Hx Family Neuromuscular Disorders: No Hx Family Neurologic Disorders: No Hx Family HEENT Disorders: No Hx Family Autoimmune Disorders: No Mother Family Member Ethnicity: Non- Living Status: Still Living Hx Family Cardiac Disorders: No Hx Family Respiratory Disorders: No Hx Family Cancer: No Hx Family GI Disorders: No Hx Family Endocrine Disorder: No Hx Family Neuromuscular Disorders: No Hx Family Neurologic Disorders: No Hx Family HEENT Disorders: No Hx Family Autoimmune Disorders: No Sister Family Member Ethnicity: Non- Living Status: Still Living Hx Family Cardiac Disorders: No Hx Family Respiratory Disorders: Yes Hx Family Cancer: Yes Hx Family GI Disorders: No Hx Family Endocrine Disorder: No Hx Family Neuromuscular Disorders: No Hx Family Neurologic Disorders: No Hx Family HEENT Disorders: No Hx Family Autoimmune Disorders: No Medications and Allergies Albuterol Sulfate [Albuterol Inhaler] 90 mcg IH Q4HR PRN 03/27/15 [History] Azelastine 1% Nasal [place] [Astelin] 1 spr NS BID 03/27/15 [History] Calcium Carbonate/Vitamin D3 [Calcium 600 + D Tablet] 1 each PO DAILY 03/27/15 [ History] Cetirizine HCl [Zyrtec] 10 mg PO DAILY 03/27/15 [History] Cyclobenzaprine [Flexeril] 10 mg PO TID PRN 03/27/15 [History] EPINEPHrine PACK [EPINEPHrine] 0.3 mg IM ONCE PRN 03/27/15 [History] Fluticasone Propionate Nasal [Flonase] 1 spray NS DAILY 03/27/15 [History] Mometasone Furoate [Asmanex] 110 mcg IH BID 03/27/15 [History] Montelukast [Singulair] 10 mg PO DAILY 03/27/15 [History] Gabapentin [Neurontin] 300 mg PO TID 04/20/17 [History] Metoprolol XL (24 HR) Succ [Toprol Xl] 25 mg PO DAILY 04/20/17 [History] Paroxetine HCl [Paxil] 60 mg PO DAILY 04/20/17 [History] Ranitidine HCl [Acid Staff Nuclear Weapons Officer] 150 mg PO BID 04/20/17 [History] Aspirin Enteric Coated [Aspirin EC] 81 mg PO DAILY #30 tablet. 04/22/17 [Rx] Potassium Chloride Elixir [Potassium Chloride] 10 meq PO DAILY 08/10/17 [History ] Butalb/Acetaminophen/Caffeine [Fioricet 50-300-40 mg Capsule] 1 each PO DAILY PRN #12 capsule 08/11/17 [Rx] amLODIPine [Norvasc] 5 mg PO DAILY #30 tablet 08/11/17 [Rx] Acetaminophen [Tylenol] 650 mg PO Q6HR PRN tablet 08/14/17 [Rx] Cholecalciferol (D-3) [Vitamin D] 1,000 unit PO DAILY tablet 08/14/17 [Rx] Spironolactone [Aldactone] 25 mg PO Q48H #30 tablet 08/14/17 [Rx] Atorvastatin [Lipitor] 40 mg PO HS 09/18/17 [History] Nitroglycerin [Nitrostat] 0.4 mg SL DAILY PRN 09/18/17 [History] 3 Allergy/AdvReac Type Severity Reaction Status Date / Time diazepam [From Valium] Allergy Severe Swelling Verified 09/22/17 22:06 of Lip/Tongue/Throat duloxetine [From Cymbalta] Allergy Severe Swelling Verified 09/22/17 22:06 of Lip/Tongue/Throat Minocycline Allergy Severe Swelling Verified 09/22/17 22:06 of Lip/Tongue/Throat olanzapine [From Zyprexa] Allergy Severe Swelling Verified 09/22/17 22:06 of Lip/Tongue/Throat iodine Allergy Mild SWELLING, Verified 09/22/17 22:06 SOB methylprednisolone Allergy Mild SWELLING,SO Verified 09/22/17 22:06 [From Medrol] B hydrocodone Allergy Swelling Verified 09/22/17 22:06 of Lip/Tongue/Throat Iodinated Contrast- Oral and Allergy Swelling Verified 09/22/17 22:06 IV Dye of Lip/Tongue/Throat Onion Allergy Swelling Verified 09/22/17 22:06 of Lip/Tongue/Throat Oxycodone [From Percocet] AdvReac Mild Vomiting Verified 09/22/17 22:06 All Systems Review: The remainder of the systems were reviewed and are negative Exam Vital Signs, Last 4 Hours Temp Pulse Resp BP Pulse Ox 09/23/17 12:17 97.9 F 58 16 118/70 96 General: Present: Conversant, No Apparent Distress, Well developed, Well nourished HEENT: Present: Atraumatic, Normocephaly, Trachea midline, Pupils equal Neck: Absent: JVD Cardiac: Present: Reg Rate and Rhythm Neuro: Present: Alert and responsive, No focal deficits noted, Cranial nerves grossly intact, Motor nerves grossly intact, Sensory nerves grossly intact Abdomen: Present: Soft, Non-tender. Absent: Masses Vascular: Present: Normal capillary refill, Pulse, normal, Color/Temperature ( Color and temperature of the right lower extremity is within normal limits.), Other (The right groin area has an ecchymoses consistent with a recent cardiac catheterization. There is an indurated distinct area measuring approximately 2.5 x 2.5 cm. This is a well-circumscribed indurated area. There are no blebs present. There is no purulence. There is no sign of fasciitis or crepitus. There are no bruits over the right groin. There are no pulsatile masses. The mass is not movable. It is tender to touch. There is no significant increase in temperature over this area. There is no mass in the left groin.). Absent: Bruit , Clubbing, Cyanosis, Edema, Surgical incisions, Amputation(s) Skin: Present: No rashes noted on visualized skin Consult Discharge Plan - Plan Referrals: Michaelle William, PUBLIC AFFAIRS SPECIALIST [Primary Care Provider] -
[2017-09-23] MEDS ORDERED: *HR* Heparin 5,000 UNIT/ML VIAL IVP PRN ×2 (13:09)
[2017-09-23] MEDS: *HR* Rivaroxaban 15 MG TABLET PO SCH ×2 (15:10→21:34)
[2017-09-24] MEDS: traMADol 50 MG TABLET PO PRN ×2 (00:08→09:11)
[2017-09-24 02:15] LABS: Basophils # 0.1 K/mcL (0.0-0.2); Basophils % 0.5 %; Eosinophils # 0.2 K/mcL (0.0-0.6); Eosinophils % 1.1 %; Hematocrit 41.7 % (35.3-44.9); Hemoglobin 13.5 g/dL (11.5-15.4); Immature Granulocytes % 0.5 % (0-4); Lymphocytes # 4.1 K/mcL (0.6-4.6); Lymphocytes % 26.8 %; Mean Corpuscular HGB Conc 32.4 g/dL (31.6-35.5); Mean Corpuscular Hemoglobin 28.3 pg (28.0-33.3); Mean Corpuscular Volume 87.4 fL (83.0-100.0); Mean Platelet Volume 8.7 fL (9.4-12.4); Monocytes # 0.9 K/mcL (0.0-1.3); Monocytes % 5.7 %; Neutrophils # 10.1 K/mcL (1.6-8.9); Platelet Count 282 K/mcL (140-400); Red Blood Count 4.77 M/mcL (3.82-4.97); Red Cell Distribution Width 14.4 % (11.5-14.5); Segmented Neutrophils % 65.4 %
[2017-09-24 02:25] LABS: BUN/Creatinine Ratio 15 (6-26); Blood Urea Nitrogen 11 mg/dL (6-20); Calcium 9.1 mg/dL (8.6-10.3); Carbon Dioxide 23 mEq/L (23-29); Chloride 107 mEq/L (98-107); Glucose 96 mg/dL (70-105); Osmolality,Calculated 287 (280-300); Potassium 4.1 mEq/L (3.5-5.1); Sodium 139 mEq/L (136-145); eGFR For African Americans > 60 (> 60); eGFR For Non-African Americans > 60 (> 60)
[2017-09-24 07:09] VITALS: BP 141/81
--- NOTE | 2017-09-24 07:19 | Internal Med Progress Note ---
Date of Encounter: 09/24/17 Time of Encounter: 07:17 - Assessment and plan (1) Deep vein thrombosis of lower extremity Current Visit: Yes Status: Acute Assessment and plan: Swollen groin at the site of the cardiac catheterization 09/18/17 Lower extremity U/S: acute right common femoral vein thrombosis. One time dose of Vancomycin given per cardiology recommendation due to concern for thrombophlebitis and elevated WBC. Procalcitonin level is pending. Will hold further Vancomycin to prevent acute kidney injury given recent LHC. Consider blood cultures and restarting antibiotics if WBC remains elevated, patient becomes febrile, or shows signs of local infection. Vascular surgery consulted, no indication for surgical exploration at this time. Recommends local treatment with warm compresses. Stop heparin drip, patient prefers Xarelto over Coumadin for DVT treatment. Will start Xarelto 15mg PO BID for 21 days, then continue Xarelto 20mg PO daily to complete 3 months of treatment Qualifiers: Affected thrombotic vein of extremity: femoral Chronicity: acute Laterality: right Qualified Code(s): I82.411 - Acute embolism and thrombosis of right femoral vein (2) Chronic pain Current Visit: No Status: Chronic Assessment and plan: Continue Ultram Qualifiers: Chronic pain type: chronic pain syndrome Qualified Code(s): G89.4 - Chronic pain syndrome (3) Hypertension Current Visit: No Status: Chronic Assessment and plan: Continue home meds. Qualifiers: Hypertension type: essential hypertension Qualified Code(s): I10 - Essential (primary) hypertension (4) Asthma Current Visit: No Status: Chronic Assessment and plan: No active wheezing at present Qualifiers: Asthma severity: mild Asthma persistence: intermittent Asthma complication type: uncomplicated Qualified Code(s): J45.20 - Mild intermittent asthma, uncomplicated (5) Tobacco dependence Current Visit: Yes Status: Chronic Assessment and plan: Nicotine patch. Recommend tobacco cessation. (6) Chronic GERD Current Visit: No Status: Chronic Assessment and plan: Continue home medication (7) DVT prophylaxis Current Visit: No Status: Acute Assessment and plan: Xarelto - Time Spent With Patient Total time spent is greater than 50% in coordination of care (as documented) at patient's floor/unit and/or counseling patient: - Subjective Interval history: Patient seen and examined. - Constitutional Vitals: Temp Pulse Resp BP Pulse Ox 98 F 57 16 141/81 98 09/24/17 07:07 09/24/17 07:07 09/24/17 07:07 09/24/17 07:07 09/24/17 07:07 General appearance: Present: cooperative, A&O X 3, pleasant, no acute distress, answers questions appropriately - Head Head exam: Present: atraumatic, normocephalic - Eye Eye exam: Present: PERRL, conjuntiva pink, sclera anicteric Pupils: Present: PERRL - Neck Neck exam general surgery: Present: supple, trachea midline. Absent: lymphadenopathy - Respiratory Respiratory exam: Present: CTAB. Absent: accessory muscle use, rales, rhonchi, wheezes - Cardiovascular Cardiovascular exam: Present: RRR, +S1, +S2. Absent: diastolic murmur, gallop, rubs, systolic murmur - GI/Abdominal GI/Abdominal exam: Present: normal bowel sounds, soft, no peritoneal signs. Absent: distended, tenderness - Extremities Exam Extremities exam: Present: warm, radial pulses palpable and symmetrical. Absent : calf tenderness, cyanotic, pedal edema - Neurological Exam Neurological exam: Present: CN II-XII intact, oriented X3, no focal deficits. Absent: pronater drift, facial droop, speech deficit - Skin Skin exam: Present: dry, intact Internal Medicine: Result - Labs CBC & Chem 7: 09/24/17 01:49 09/24/17 01:49 Labs: Short CBC 09/24/17 Range/Units 01:49 WBC 15.4 H (4.3-11.1) K/mcL Hgb 13.5 (11.5-15.4) g/dL Hct 41.7 (35.3-44.9) % Plt Count 282 (140-400) K/mcL Neutrophils # 10.1 H (1.6-8.9) K/mcL BMP 09/24/17 01:49 Sodium 139 Potassium 4.1 Chloride 107 Carbon Dioxide 23 BUN 11 Creatinine 0.71 Glucose 96 Calcium 9.1 - ABG Interpretation ABG results: PT/INR, D-dimer PT 11.1 Seconds (9.4-12.1) 09/22/17 21:00 Consult Discharge Plan - Plan Referrals: Michaelle William, UNBUNDLER [Primary Care Provider] -
[2017-09-24] MEDS: Beclomethasone 40mcg MDI IH SCH (07:50)
--- NOTE | 2017-09-24 08:46 | Discharge Summary ---
<Jn Silva - Last Filed: 09/24/17 09:18> - NOTES TO OUTPATIENT PROVIDER Notes to Outpatient Provider: Recommend repeat right groin ultrasound in a few weeks if persistent symptoms. Continue Xarelto for 3 month duration to treat DVT. Continue warm compresses. One time dose of Vancomycin given per cardiology recommendation due to concern for thrombophlebitis and elevated WBC. Further Vancomycin was held to prevent acute kidney injury given recent LHC and low index of suspicion for infection. Procalcitonin level is pending. Consider blood cultures and restarting antibiotics if WBC remains elevated on CBC in 1 week, patient becomes febrile, or shows signs of local infection. Orders not resulted at time of discharge: Pending orders 09/23/17 02:56 EKG [ECG 12 lead ECG] [ECG] NOW 09/23/17 14:11 Procalcitonin Routine Date of Encounter: 09/24/17 Time of Encounter: 08:42 - Discharge Diagnosis (1) Chronic pain Priority: Secondary Status: Chronic Comments: Continue Ultram Qualifiers: Chronic pain type: chronic pain syndrome Qualified Code(s): G89.4 - Chronic pain syndrome (2) Hypertension Priority: Secondary Status: Chronic Comments: Continue home meds. Qualifiers: Hypertension type: essential hypertension Qualified Code(s): I10 - Essential (primary) hypertension (3) Asthma Priority: Secondary Status: Chronic Comments: No active wheezing at present. Continue home meds. Qualifiers: Asthma severity: mild Asthma persistence: intermittent Asthma complication type: uncomplicated Qualified Code(s): J45.20 - Mild intermittent asthma, uncomplicated (4) Tobacco dependence Priority: Secondary Status: Chronic Comments: Nicotine patch. Recommend tobacco cessation. (5) Chronic GERD Priority: Secondary Status: Chronic Comments: Continue home medication (6) DVT prophylaxis Priority: Secondary Status: Acute Comments: Xarelto (7) Deep vein thrombosis of lower extremity Priority: Primary Status: Acute Comments: Swollen groin at the site of the cardiac catheterization 09/18/17 Lower extremity U/S: acute right common femoral vein thrombosis. One time dose of Vancomycin given per cardiology recommendation due to concern for thrombophlebitis and elevated WBC. Procalcitonin level is pending. Will hold further Vancomycin to prevent acute kidney injury given recent LHC. Consider blood cultures and restarting antibiotics if WBC remains elevated, patient becomes febrile, or shows signs of local infection. Vascular surgery consulted, no indication for surgical exploration at this time. Recommends local treatment with warm compresses. Stop heparin drip, patient prefers Xarelto over Coumadin for DVT treatment. Will start Xarelto 15mg PO BID for 21 days, then continue Xarelto 20mg PO daily to complete 3 months of treatment Qualifiers: Affected thrombotic vein of extremity: femoral Chronicity: acute Laterality: right Qualified Code(s): I82.411 - Acute embolism and thrombosis of right femoral vein Hospital course: Ms. Chambers is a 47 year old female with a PMH of asthma, GERD, hyperlipidemia , and hypertension who underwent a cardiac catheterization on 09/18/17. The findings were normal and patient was discharged. A Mynx closure device was utilized. On 09/20/17 the patient noted persistent pain and swelling in the right groin access site. The patient was sent to the noninvasive lab yesterday where she had a duplex scan performed of the groin. This demonstrated an acute right common femoral vein thrombus. There is also a question raised about a abnormal venous flow suggesting an occult arterial venous fistula. No pseudoaneurysm was identified. The patient was subsequently then sent to the emergency room and was admitted for treatment for the DVT. Vascular surgery was asked to see the patient because of the concern raised about the AV fistula and the right groin pain. Vascular surgery recommended no indication for surgical exploration at this time and advised local treatment with warm compresses. One time dose of Vancomycin given per cardiology recommendation due to concern for thrombophlebitis and elevated WBC. Further Vancomycin was held to prevent acute kidney injury given recent LHC and low index of suspicion for infection. Procalcitonin level is pending. Consider blood cultures and restarting antibiotics if WBC remains elevated, patient becomes febrile, or shows signs of local infection. Patient prefers Xarelto over Coumadin for DVT treatment. Will start Xarelto 15mg PO BID for 21 days, then continue Xarelto 20mg PO daily to complete 3 months of treatment. Recommend repeat right groin ultrasound in a few weeks if persistent symptoms. Repeat CBC and follow up with PCP in 1-2 weeks. Discharge discussed with: patient - Time Spent with Patient Total time spent providing and/or coordinating discharge services: - Discharge Medications Prescriptions: Rivaroxaban [Xarelto] 15 mg PO BID 21 Days #42 tablet Rivaroxaban [Xarelto] 20 mg PO DAILY #67 tablet Tramadol HCl [Ultram] 50 mg PO DAILY PRN 7 Days #7 tab PRN Reason: Moderate Pain Home Medications: Albuterol Sulfate [Albuterol Inhaler] 1 - 2 puff IH Q4HR PRN 03/27/15 [History] Azelastine 1% Nasal [place] [Astelin] 1 spr NS BID 03/27/15 [History] Calcium Carbonate/Vitamin D3 [Calcium 600 + D Tablet] 1 tab PO DAILY 03/27/15 [ History] Cetirizine HCl [Zyrtec] 10 mg PO DAILY 03/27/15 [History] Cyclobenzaprine [Flexeril] 10 mg PO TID PRN 03/27/15 [History] EPINEPHrine PACK [EPINEPHrine] 0.3 mg IM ONCE PRN 03/27/15 [History] Fluticasone Propionate Nasal [Flonase] 50 mcg NS DAILY 03/27/15 [History] Mometasone Furoate [Asmanex] 110 mcg IH BID 03/27/15 [History] Montelukast [Singulair] 10 mg PO DAILY 03/27/15 [History] Gabapentin [Neurontin] 300 mg PO TID 04/20/17 [History] Metoprolol XL (24 HR) Succ [Toprol Xl] 25 mg PO DAILY 04/20/17 [History] Paroxetine HCl [Paxil] 60 mg PO DAILY 04/20/17 [History] Ranitidine HCl [Acid Sample Sewer] 150 mg PO BID 04/20/17 [History] Aspirin Enteric Coated [Aspirin EC] 81 mg PO DAILY #30 tablet 04/22/17 [Rx] Potassium Chloride Elixir [Potassium Chloride] 10 meq PO DAILY 08/10/17 [History ] amLODIPine [Norvasc] 5 mg PO DAILY #30 tablet 08/11/17 [Rx] Acetaminophen [Tylenol] 650 mg PO Q6HR PRN tablet 08/14/17 [Rx] Cholecalciferol (D-3) [Vitamin D] 1,000 unit PO DAILY tablet 08/14/17 [Rx] Spironolactone [Aldactone] 25 mg PO Q48H #30 tablet 08/14/17 [Rx] Atorvastatin [Lipitor] 40 mg PO HS 09/18/17 [History] Nitroglycerin [Nitrostat] 0.4 mg SL DAILY PRN 09/18/17 [History] Butalb/Acetaminophen/Caffeine [Fioricet 50-300-40 mg Capsule] 1 cap PO BID PRN 09/23/17 [History] cloNIDine HCl [CloNIDine HCl] 0.1 mg PO TID 09/23/17 [History] Acetaminophen [Tylenol] 650 mg PO Q6HR PRN tablet 09/24/17 [Rx] Rivaroxaban [Xarelto] 15 mg PO BID 21 Days #42 tablet 09/24/17 [Rx] Rivaroxaban [Xarelto] 20 mg PO DAILY #67 tablet 09/24/17 [Rx] Tramadol HCl [Ultram] 50 mg PO DAILY PRN 7 Days #7 tab 09/24/17 [Rx] Allergies/Adverse Reactions: 3 Allergy/AdvReac Type Severity Reaction Status Date / Time diazepam [From Valium] Allergy Severe Swelling Verified 09/22/17 22:06 of Lip/Tongue/Throat duloxetine [From Cymbalta] Allergy Severe Swelling Verified 09/22/17 22:06 of Lip/Tongue/Throat Minocycline Allergy Severe Swelling Verified 09/22/17 22:06 of Lip/Tongue/Throat olanzapine [From Zyprexa] Allergy Severe Swelling Verified 09/22/17 22:06 of Lip/Tongue/Throat iodine Allergy Mild SWELLING, Verified 09/22/17 22:06 SOB methylprednisolone Allergy Mild SWELLING,SO Verified 09/22/17 22:06 [From Medrol] B hydrocodone Allergy Swelling Verified 09/22/17 22:06 of Lip/Tongue/Throat Iodinated Contrast- Oral and Allergy Swelling Verified 09/22/17 22:06 IV Dye of Lip/Tongue/Throat Onion Allergy Swelling Verified 09/22/17 22:06 of Lip/Tongue/Throat Oxycodone [From Percocet] AdvReac Mild Vomiting Verified 09/22/17 22:06 Date of admission: 09/23/17 00:18 Primary care physician: Michaelle William CNP Consults: 09/23/17 00:26 Consult to Vascular Surgery [CONS] Routine Consulting Provider: Vascular Surgery Sravanthi Reason for Consult: possible AV fistula at cardiac cath site Call Completed: No Discharging clinician: Jn Silva Anticipated date of discharge: 09/24/17 - Constitutional Vitals: Temp Pulse Resp BP Pulse Ox 98 F 57 16 141/81 95 09/24/17 07:07 09/24/17 07:07 09/24/17 07:50 09/24/17 07:07 09/24/17 07:50 General appearance: Present: cooperative, A&O X 3, pleasant, no acute distress, answers questions appropriately - Head Head exam: Present: atraumatic, normocephalic - Eye Eye exam: Present: PERRL, conjuntiva pink, sclera anicteric Pupils: Present: PERRL - ENT ENT exam: Present: mucous membranes moist, normal oropharynx - Neck Neck exam general surgery: Present: supple, trachea midline. Absent: lymphadenopathy - Respiratory Respiratory exam: Present: CTAB. Absent: accessory muscle use, rales, rhonchi, wheezes - Cardiovascular Cardiovascular exam: Present: RRR, +S1, +S2. Absent: diastolic murmur, gallop, rubs, systolic murmur - GI/Abdominal GI/Abdominal exam: Present: normal bowel sounds, soft, no peritoneal signs. Absent: distended, tenderness - Extremities Exam Extremities exam: Present: tenderness (right groin), warm, radial pulses palpable and symmetrical. Absent: calf tenderness, cyanotic, pedal edema Additional comments: ecchymosis right groin - Neurological Exam Neurological exam: Present: CN II-XII intact, oriented X3, no focal deficits. Absent: pronater drift, facial droop, speech deficit - Psychiatric Psychiatric exam: Present: normal affect, normal mood - Skin Skin exam: Present: dry, intact Additional comments: ecchymosis right groin - Patient Status Disposition: Home, Self-Care Condition: Good Functional capacity at discharge: independent ambulation Overall status at discharge: patient is progressing back to baseline - Ambulatory Orders Ambulatory Orders: Complete Blood Count [HEME] Time Frame: 1 Week, Location: N/A - Discharge Instructions Instructions: Tramadol (By mouth), Rivaroxaban (By mouth), Chest Pain (DC), Hypokalemia (DC), Deep Venous Thrombosis (DC) Follow Up With: Michaelle William GAS ATTENDANT [Primary Care Provider] - - Diet and Activity Activity: increase activity as tolerated Diet: advance to your usual diet <Chidi Feliz - Last Filed: 09/24/17 13:47> Orders not resulted at time of discharge: Pending orders 09/23/17 02:56 EKG [ECG 12 lead ECG] [ECG] NOW 09/23/17 14:11 Procalcitonin Routine Date of Encounter: 09/24/17 - Discharge Diagnosis (1) Asthma Status: Chronic Qualifiers: Asthma severity: mild Asthma persistence: intermittent Asthma complication type: uncomplicated Qualified Code(s): J45.20 - Mild intermittent asthma, uncomplicated (2) Chronic GERD Status: Chronic (3) DVT prophylaxis Status: Acute (4) Hypertension Status: Chronic Qualifiers: Hypertension type: essential hypertension Qualified Code(s): I10 - Essential (primary) hypertension (5) Tobacco dependence Status: Chronic (6) Chronic pain Status: Chronic Qualifiers: Chronic pain type: chronic pain syndrome Qualified Code(s): G89.4 - Chronic pain syndrome (7) Deep vein thrombosis of lower extremity Status: Acute Qualifiers: Affected thrombotic vein of extremity: femoral Chronicity: acute Laterality: right Qualified Code(s): I82.411 - Acute embolism and thrombosis of right femoral vein Hospital course: Ms. Chambers is a 47 year old female - Time Spent with Patient Total time spent providing and/or coordinating discharge services: Date of admission: 09/23/17 00:18 Primary care physician: Michaelle William CNP Consults: 09/23/17 00:26 Consult to Vascular Surgery [CONS] Routine Consulting Provider: Vascular Surgery Sravanthi Reason for Consult: possible AV fistula at cardiac cath site Call Completed: No - Constitutional Vitals: Temp Pulse Resp BP Pulse Ox 98 F 57 16 141/81 95 09/24/17 07:07 09/24/17 07:07 09/24/17 07:50 09/24/17 07:07 09/24/17 07:50 - Attending Attestation follow up with vascular surgery in 2-3 weeks time spent: 40 min I examined this patient and my medical decision-making was reviewed with the Resident Physician. I agree with the documented findings, disposition and treatment plan as described except to the extent set forth below.
[2017-09-24] MEDS: amLODIPine 5 MG TABLET PO SCH (09:11)
[2017-09-24] MEDS: Aspirin Enteric Coated 81 MG Tablet PO SCH (09:11)
[2017-09-24] MEDS: *HR* Rivaroxaban 15 MG TABLET PO SCH (09:11)
[2017-09-24] MEDS: Cholecalciferol (D-3) 1,000 UNIT TABLET PO SCH (09:11)
[2017-09-24] MEDS: Famotidine 20 MG TABLET PO SCH (09:11)
[2017-09-24] MEDS: Gabapentin 300 MG CAPSULE PO SCH (09:12)
[2017-09-24] MEDS: Loratadine 10 MG TABLET PO SCH (09:12)
[2017-09-24] MEDS: Metoprolol XL (24 HR) Succ 25 MG TAB.ER.24H PO SCH ×2 (09:12→09:28)
[2017-09-24] MEDS: Potassium Chloride Elixir 20 MEQ/15 ML UDC PO SCH (09:13)
[2017-09-24] MEDS: Calcium 600 + D PO SCH (09:18)
[2017-09-24] MEDS: Azelastine 0.1% Nasal Spray 30 ML BOTTLE NS SCH (09:19)
[2017-09-24] MEDS: Fluticasone Propionate Nasal 50 MCG/SPRAY BOTTLE NS SCH (09:20)
[2017-09-24] MEDS: Nicotine 14 MG PATCH.TD24 TD SCH (09:23)
--- NOTE | 2017-09-26 05:35 | Electrocardiograph Report ---
[address] [address] Test Date: 2017-09-23 Pat Name: Manuela Chambers Department: 111 Room: [facility] Gender: F Director Of Curriculum: JOHAN : 1970 Requested By: Talya Lewis Order Number: [id number] Reading MD: Brian Cruz Measurements Intervals [place] Rate: 50 P: 50 [place]: 162 QRS: 45 QRSD: 76 T: 42 QT: 430 QTc: 403 Interpretive Statements SINUS BRADYCARDIA Electronically Signed On 09-26-2017 5:34:00 EDT by Brian Cruz
== END 2017-09-24 13:30 | disposition home or self-care (01) | DRG 197 ==
LOC: EMEROO 20:33 → 2NENU 20:33
PROVIDERS: ADMIT Internal Medicine; ATTEND Internal Medicine

== ENCOUNTER 2018-10-14 13:54 | Inpatient (IN) ==
[2018-10-14] MEDS ORDERED: 0.9 % Sodium Chloride 1,000 ML IVC ONE (14:02)
[2018-10-14] MEDS ORDERED: *HR* HYDROmorphone (PF) 1 MG/ML SYRINGE IVP ONE ×2 (14:15→17:05)
[2018-10-14] MEDS ORDERED: Ondansetron 4 MG/2 ML VIAL IVP ONE (14:16)
[2018-10-14 14:26] LABS: Basophils # 0.1 K/mcL (0.0-0.2); Basophils % 0.5 %; Eosinophils # 0.4 K/mcL (0.0-0.6); Eosinophils % 1.5 %; Hematocrit 42.9 % (35.3-44.9); Hemoglobin 14.4 g/dL (11.5-15.4); Immature Granulocytes % 0.6 % (0-4); Lymphocytes % 12.2 %; Mean Corpuscular HGB Conc 33.6 g/dL (31.6-35.5); Mean Corpuscular Hemoglobin 29.6 pg (28.0-33.3); Mean Corpuscular Volume 88.3 fL (83.0-100.0); Mean Platelet Volume 8.3 fL (9.4-12.4); Monocytes # 1.1 K/mcL (0.0-1.3); Monocytes % 4.4 %; Neutrophils # 19.5 K/mcL (1.6-8.9); Platelet Count 343 K/mcL (140-400); Red Blood Count 4.86 M/mcL (3.82-4.97); Red Cell Distribution Width 14.5 % (11.5-14.5); Segmented Neutrophils % 80.8 %
--- NOTE | 2018-10-14 14:33 | Emergency Department Note ---
Disposition Clinical Impression: Right flank pain Disposition: Still a Patient General Adult HPI - General Chief complaint: ED Abdominal Pain Stated complaint: abdominal pain Time Seen by Provider: 10/14/18 13:55 Source: patient, EMS Mode of arrival: ambulatory Limitations: no limitations Nursing Notes Reviewed: Yes Vital Signs Reviewed: Yes - History of Present Illness HPI Narrative: Attestation note: Patient was seen with the emergency medicine resident/nurse practitioner/physician web marketing assistant/transitional resident/medical student: Dr. MARIA DE JESUS HUANG I have personally performed a face to face evaluation on this patient. I have reviewed and agree with history and physical examination patient management and disposition. Briefly the salient points of the case are as follows: 48-year-old female presents with acute onset of right flank pain going into her groin no prior history of kidney stone she is writhing in bed she said she sat back problems in the past and had 5 children by natural childbirth but never the pain like this. Abdomen surgically benign no CVAT she is afebrile with stable vital signs. Pat ient getting parenteral narcotics antiemetics IV fluid screening labs and noncontrast abdominal pelvic CT no urinalysis. Disposition pending. Pain Scale: 10 - Related Data Home Medications Medication Instructions Recorded Confirmed Albuterol Sulfate [Albuterol 1 - 2 puff IH Q4HR PRN 03/27/15 09/23/17 Inhaler] Azelastine 1% Nasal [place] [Astelin] 1 spr NS BID 03/27/15 09/23/17 Calcium Carbonate/Vitamin D3 1 tab PO DAILY 03/27/15 09/23/17 [Calcium 600 + D Tablet] Cetirizine HCl [Zyrtec] 10 mg PO DAILY 03/27/15 09/23/17 Cyclobenzaprine [Flexeril] 10 mg PO TID PRN 03/27/15 09/23/17 EPINEPHrine PACK [EPINEPHrine] 0.3 mg IM ONCE PRN 03/27/15 09/23/17 Fluticasone Propionate Nasal 50 mcg NS DAILY 03/27/15 09/23/17 [Flonase] Mometasone Furoate [Asmanex] 110 mcg IH BID 03/27/15 09/23/17 Montelukast [Singulair] 10 mg PO DAILY 03/27/15 09/23/17 Gabapentin [Neurontin] 300 mg PO TID 04/20/17 09/23/17 Metoprolol XL (24 HR) Succ [Toprol 25 mg PO DAILY 04/20/17 09/23/17 Xl] Paroxetine HCl [Paxil] 60 mg PO DAILY 04/20/17 09/23/17 Ranitidine HCl [Acid Commercial Fisherman] 150 mg PO BID 04/20/17 09/23/17 Potassium Chloride Elixir 10 meq PO DAILY 08/10/17 09/23/17 [Potassium Chloride] Atorvastatin [Lipitor] 40 mg PO HS 09/18/17 09/23/17 Nitroglycerin [Nitrostat] 0.4 mg SL DAILY PRN 09/18/17 09/23/17 Butalb/Acetaminophen/Caffeine 1 cap PO BID PRN 09/23/17 09/23/17 [Fioricet 50-300-40 mg Capsule] cloNIDine HCl [CloNIDine HCl] 0.1 mg PO TID 09/23/17 09/23/17 Previous Rx's Medication Instructions Recorded Aspirin Enteric Coated [Aspirin EC] 81 mg PO DAILY #30 tablet. 04/22/17 amLODIPine [Norvasc] 5 mg PO DAILY #30 tablet 08/11/17 Acetaminophen [Tylenol] 650 mg PO Q6HR PRN tablet 08/14/17 Cholecalciferol (D-3) [Vitamin D] 1,000 unit PO DAILY tablet 08/14/17 Spironolactone [Aldactone] 25 mg PO Q48H #30 tablet 08/14/17 Acetaminophen [Tylenol] 650 mg PO Q6HR PRN tablet 09/24/17 Rivaroxaban [Xarelto] 15 mg PO BID 21 Days #42 tablet 09/24/17 Rivaroxaban [Xarelto] 20 mg PO DAILY #67 tablet 09/24/17 Tramadol HCl [Ultram] 50 mg PO DAILY PRN 7 Days #7 tab 09/24/17 Allergies Allergy/AdvReac Type Severity Reaction Status Date / Time diazepam [From Valium] Allergy Severe Swelling Verified 09/22/17 22:06 of Lip/Tongue/Throat duloxetine [From Cymbalta] Allergy Severe Swelling Verified 09/22/17 22:06 of Lip/Tongue/Throat minocycline [Minocycline] Allergy Severe Swelling Verified 09/22/17 22:06 of Lip/Tongue/Throat olanzapine [From Zyprexa] Allergy Severe Swelling Verified 09/22/17 22:06 of Lip/Tongue/Throat iodine Allergy Mild SWELLING, Verified 09/22/17 22:06 SOB methylprednisolone Allergy Mild SWELLING,SO Verified 09/22/17 22:06 [From Medrol] B hydrocodone Allergy Swelling Verified 09/22/17 22:06 of Lip/Tongue/Throat Iodinated Contrast- Oral and Allergy Swelling Verified 09/22/17 22:06 IV Dye of Lip/Tongue/Throat Onion Allergy Swelling Verified 09/22/17 22:06 of Lip/Tongue/Throat oxycodone [From Percocet] AdvReac Mild Vomiting Verified 09/22/17 22:06 Past Medical History - Past Medical History Medical history: Reports: asthma, GERD, hyperlipidemia, hypertension, other Surgical history: Reports: appendectomy, cholecystectomy, hysterectomy, orthopedic, other, BIBIANA/BSO, other Psychiatric history: Reports: anxiety, depression [employer]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 - Social History Smoking Status: Current every day smoker Smokeless Tobacco Status: No Alcohol use: Reports: none Drug use: Reports: none Physical Exam - General Limitations: no limitations General appearance: alert Course Vital Signs Temperature 98.2 F 10/14/18 14:00 Pulse Rate 62 10/14/18 14:00 Respiratory Rate 18 10/14/18 14:00 Blood Pressure 147/94 10/14/18 14:00 O2 Sat by Pulse Oximetry 99 10/14/18 14:00 Temperature 98.2 F 10/14/18 14:00 Pulse Rate 62 10/14/18 14:00 Respiratory Rate 18 10/14/18 14:00 Blood Pressure 147/94 10/14/18 14:00 O2 Sat by Pulse Oximetry 99 10/14/18 14:00 Oxygen Delivery Oxygen Delivery Room Air Medical Decision Making - Lab Data Result diagrams: 10/14/18 14:14 Lab Results 10/14/18 Range/Units 14:14 WBC 24.1 H (4.3-11.1) K/mcL RBC 4.86 (3.82-4.97) M/mcL Hgb 14.4 (11.5-15.4) g/dL Hct 42.9 (35.3-44.9) % MCV 88.3 (83.0-100.0) fL MCH 29.6 (28.0-33.3) pg MCHC 33.6 (31.6-35.5) g/dL RDW 14.5 (11.5-14.5) % Plt Count 343 (140-400) K/mcL MPV 8.3 L (9.4-12.4) fL Immature Gran % 0.6 (0-4) % Seg Neutrophils % 80.8 % Lymphocytes % 12.2 % Monocytes % 4.4 % Eosinophils % 1.5 % Basophils % 0.5 % Neutrophils # 19.5 H (1.6-8.9) K/mcL Lymphocytes # 3.0 (0.6-4.6) K/mcL Monocytes # 1.1 (0.0-1.3) K/mcL Eosinophils # 0.4 (0.0-0.6) K/mcL Basophils # 0.1 (0.0-0.2) K/mcL
[2018-10-14 14:46] LABS: Alanine Aminotransferase 10 Units/L (7-52); Albumin/Globulin Ratio 1.4 (1.1-2.2); Alkaline Phosphatase 112 Units/L (34-104); Aspartate Amino Transferase 14 Units/L (13-39); BUN/Creatinine Ratio 8 (6-26); Bilirubin,Direct 0.1 mg/dL (0.0-0.2); Bilirubin,Indirect 0.4 mg/dL (0.0-1.2); Bilirubin,Total 0.5 mg/dL (0.3-1.0); Blood Urea Nitrogen 6 mg/dL (6-20); Calcium 8.9 mg/dL (8.6-10.3); Carbon Dioxide 22 mEq/L (23-29); Chloride 110 mEq/L (98-107); Globulin 2.8 g/dL (2.4-3.5); Glucose 114 mg/dL (70-105); Osmolality,Calculated 286 (280-300); Sodium 139 mEq/L (136-145); Total Protein 6.8 g/dL (6.4-8.9); eGFR For Non-African Americans > 60 (> 60)
[2018-10-14 15:12] LABS: Bilirubin,Urine Negative (Negative); Blood,Urine Large (Negative); Clarity,Urine Clear (Clear); Color,Urine Dark Yellow (Yellow); Glucose,Urine (UA) Normal (Normal); Ketones,Urine Negative (Negative); Leukocyte Esterase,Urine Negative (Negative); Nitrite,Urine Negative (Negative); Protein,Urine 30 mg/dL (Neg-Trace); Specific Gravity,Urine 1.016 (1.010-1.025); Urobilinogen,Urine Normal (Normal)
[2018-10-14 15:14] LABS: Bacteria,Urine None Seen per hpf (None-Few); Hyaline Casts,Urine Few per lpf (None-Few); Squamous Epithelial Cell,Urine Many per lpf (None-Few)
[2018-10-14 15:43] LABS: RBC,Urine 0-3 per hpf (0-3)
--- NOTE | 2018-10-14 16:38 | Emergency Department Note ---
Disposition Clinical Impression: Right flank pain, Intractable abdominal pain, Bronchitis Leukocytosis Qualifiers: Leukocytosis type: bandemia Qualified Code(s): D72.825 - Bandemia Disposition: Admitted As Inpatient Condition: Fair Referrals: Michaelle William CNP [Primary Care Provider] - Forms: ED Satisfaction Letter, Work/School Release Time of Disposition: 17:15 Abdominal Pain HPI - General Chief Complaint: ED Abdominal Pain Stated Complaint: abdominal pain Time Seen by Provider: 10/14/18 13:55 Source: patient, EMS Mode of arrival: EMS Limitations: no limitations Nursing Notes Reviewed: Yes Vital Signs Reviewed: Yes - History of Present Illness HPI Narrative: 48 yo female with PMHx of COPD, HTN, HLD presents with sudden onset of right flank pain radiating down into her right groin over the past day. The patient states that she has never had pain this severe before. She denies any history of kidney stones in herself or any of her family members. She has been nauseous and vomiting with this pain. She feels as though she may have been febrile but has not taken her temperature. She denies any chest pain or shortness of breath but has been coughing more often recently. Patient states she just generally does not feel well at this time. She denies burning with urination or blood in her urine. Pain Scale: 10 - Related Data Home Medications Medication Instructions Recorded Confirmed Albuterol Sulfate [Albuterol 1 - 2 puff IH Q4HR PRN 03/27/15 09/23/17 Inhaler] Azelastine 1% Nasal [place] [Astelin] 1 spr NS BID 03/27/15 09/23/17 Calcium Carbonate/Vitamin D3 1 tab PO DAILY 03/27/15 09/23/17 [Calcium 600 + D Tablet] Cetirizine HCl [Zyrtec] 10 mg PO DAILY 03/27/15 09/23/17 Cyclobenzaprine [Flexeril] 10 mg PO TID PRN 03/27/15 09/23/17 EPINEPHrine PACK [EPINEPHrine] 0.3 mg IM ONCE PRN 03/27/15 09/23/17 Fluticasone Propionate Nasal 50 mcg NS DAILY 03/27/15 09/23/17 [Flonase] Mometasone Furoate [Asmanex] 110 mcg IH BID 03/27/15 09/23/17 Montelukast [Singulair] 10 mg PO DAILY 03/27/15 09/23/17 Gabapentin [Neurontin] 300 mg PO TID 04/20/17 09/23/17 Metoprolol XL (24 HR) Succ [Toprol 25 mg PO DAILY 04/20/17 09/23/17 Xl] Paroxetine HCl [Paxil] 60 mg PO DAILY 04/20/17 09/23/17 Ranitidine HCl [[employer]] 150 mg PO BID 04/20/17 09/23/17 Potassium Chloride Elixir 10 meq PO DAILY 08/10/17 09/23/17 [Potassium Chloride] Atorvastatin [Lipitor] 40 mg PO HS 09/18/17 09/23/17 Nitroglycerin [Nitrostat] 0.4 mg SL DAILY PRN 09/18/17 09/23/17 Butalb/Acetaminophen/Caffeine 1 cap PO BID PRN 09/23/17 09/23/17 [Fioricet 50-300-40 mg Capsule] cloNIDine HCl [CloNIDine HCl] 0.1 mg PO TID 09/23/17 09/23/17 Previous Rx's Medication Instructions Recorded Aspirin Enteric Coated [Aspirin EC] 81 mg PO DAILY #30 tablet. 04/22/17 amLODIPine [Norvasc] 5 mg PO DAILY #30 tablet 08/11/17 Acetaminophen [Tylenol] 650 mg PO Q6HR PRN tablet 08/14/17 Cholecalciferol (D-3) [Vitamin D] 1,000 unit PO DAILY tablet 08/14/17 Spironolactone [Aldactone] 25 mg PO Q48H #30 tablet 08/14/17 Acetaminophen [Tylenol] 650 mg PO Q6HR PRN tablet 09/24/17 Rivaroxaban [Xarelto] 15 mg PO BID 21 Days #42 tablet 09/24/17 Rivaroxaban [Xarelto] 20 mg PO DAILY #67 tablet 09/24/17 Tramadol HCl [Ultram] 50 mg PO DAILY PRN 7 Days #7 tab 09/24/17 Allergies Allergy/AdvReac Type Severity Reaction Status Date / Time diazepam [From Valium] Allergy Severe Swelling Verified 09/22/17 22:06 of Lip/Tongue/Throat duloxetine [From Cymbalta] Allergy Severe Swelling Verified 09/22/17 22:06 of Lip/Tongue/Throat minocycline [Minocycline] Allergy Severe Swelling Verified 09/22/17 22:06 of Lip/Tongue/Throat olanzapine [From Zyprexa] Allergy Severe Swelling Verified 09/22/17 22:06 of Lip/Tongue/Throat iodine Allergy Mild SWELLING, Verified 09/22/17 22:06 SOB methylprednisolone Allergy Mild SWELLING,SO Verified 09/22/17 22:06 [From Medrol] B hydrocodone Allergy Swelling Verified 09/22/17 22:06 of Lip/Tongue/Throat Iodinated Contrast- Oral and Allergy Swelling Verified 09/22/17 22:06 IV Dye of Lip/Tongue/Throat Onion Allergy Swelling Verified 09/22/17 22:06 of Lip/Tongue/Throat oxycodone [From Percocet] AdvReac Mild Vomiting Verified 09/22/17 22:06 Abdominal Pain PMH - Past Medical History Medical history: Reports: asthma, GERD, hyperlipidemia, hypertension, other Female Surgical History: Reports: angioplasty/stent AGED OR DISABLED CARER history: 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: 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 Psychiatric history: Reports: anxiety, depression - Social History Smoking status: Current every day smoker Alcohol use: Reports: none Drug use: Reports: none Physical Exam - General Limitations: no limitations General appearance: alert Course Vital Signs Temperature 98.2 F 10/14/18 14:00 Pulse Rate 62 10/14/18 14:00 Respiratory Rate 18 10/14/18 14:00 Blood Pressure 147/94 10/14/18 14:00 O2 Sat by Pulse Oximetry 99 10/14/18 14:00 Temperature 98.2 F 10/14/18 14:00 Pulse Rate 55 10/14/18 17:39 Respiratory Rate 18 10/14/18 17:39 Blood Pressure 138/87 10/14/18 17:39 O2 Sat by Pulse Oximetry 97 10/14/18 17:39 Oxygen Delivery Oxygen Delivery Room Air Abdominal Pain - MDM Narrative Medical decision making narrative: Patient presents with acute right flank pain that is concerning for kidney stone. Patient will receive a noncontrast CT scan of her abdomen as well as basic lab work and urinalysis. She will given 1 mg of Dilaudid for pain and Zofran for nausea. Patient's CT scan did not demonstrate a kidney stone and the patient has had her gallbladder, appendix and uterus removed surgically. Patient's pain was initially improved and down to a 3 out of 10 but is now rapidly increasing again to a 7 out of 10. Patient had a significant leukocytosis of 24 and does not currently have a source of infection. She states that she has been coughing up greenish sputum for the past several days therefore we will obtain a chest x-ray at this time. Chest x-ray demonstrated bronchitis without any visible pneumonia. The patient's pain is still uncontrolled. We will obtain a lactic and blood cultures on this patient and admit for intractable abdominal pain and leukocytosis with undefined cause. Hospitalist was called and has accepted the patient for admission. - Medical Records Medical records reviewed: Yes I reviewed the patient's medical records. - Lab Data Lab results reviewed: Yes I reviewed the patient's lab results. Result diagrams: 10/14/18 14:14 10/14/18 14:14 Lab Results 10/14/18 10/14/18 10/14/18 Range/Units 14:14 14:14 14:31 WBC 24.1 H (4.3-11.1) K/mcL RBC 4.86 (3.82-4.97) M/mcL Hgb 14.4 (11.5-15.4) g/dL Hct 42.9 (35.3-44.9) % MCV 88.3 (83.0-100.0) fL MCH 29.6 (28.0-33.3) pg MCHC 33.6 (31.6-35.5) g/dL RDW 14.5 (11.5-14.5) % Plt Count 343 (140-400) K/mcL MPV 8.3 L (9.4-12.4) fL Immature Gran % 0.6 (0-4) % Seg Neutrophils % 80.8 % Lymphocytes % 12.2 % Monocytes % 4.4 % Eosinophils % 1.5 % Basophils % 0.5 % Neutrophils # 19.5 H (1.6-8.9) K/mcL Lymphocytes # 3.0 (0.6-4.6) K/mcL Monocytes # 1.1 (0.0-1.3) K/mcL Eosinophils # 0.4 (0.0-0.6) K/mcL Basophils # 0.1 (0.0-0.2) K/mcL Sodium 139 (136-145) mEq/L Potassium 4.0 (3.5-5.1) mEq/L Chloride 110 H (98-107) mEq/L Carbon Dioxide 22 L (23-29) mEq/L BUN 6 (6-20) mg/dL Creatinine 0.77 (0.60-1.20) mg/dL Est GFR ( Amer) > 60 (> 60) Est GFR (Non-Af Amer) > 60 (> 60) BUN/Creatinine Ratio 8 (6-26) Glucose 114 H (70-105) mg/dL Calculated Osmolality 286 (280-300) Calcium 8.9 (8.6-10.3) mg/dL Total Bilirubin 0.5 (0.3-1.0) mg/dL Direct Bilirubin 0.1 (0.0-0.2) mg/dL Indirect Bilirubin 0.4 (0.0-1.2) mg/dL AST 14 (13-39) Units/L ALT 10 (7-52) Units/L Alkaline Phosphatase 112 H (34-104) Units/L Serum Total Protein 6.8 (6.4-8.9) g/dL Albumin 4.0 (3.5-5.7) g/dL Globulin 2.8 (2.4-3.5) g/dL Albumin/Globulin Ratio 1.4 (1.1-2.2) Urine Color Dark Yellow (Yellow) Urine Clarity Clear (Clear) Urine pH 6.0 (5.0-8.0) pH Units Ur Specific [place] 1.016 (1.010-1.025) Urine Protein 30 H (Neg-Trace) mg/dL Urine Glucose (UA) Normal (Normal) mg/dL Urine Ketones Negative (Negative) mg/dL Urine Blood Large H (Negative) Urine Nitrite Negative (Negative) Urine Bilirubin Negative (Negative) Urine Urobilinogen Normal (Normal) mg/dL Ur Leukocyte Esterase Negative (Negative) Urine Microscopic RBC 0-3 (0-3) per hpf Urine Microscopic WBC 3-5 H (0-3) per hpf Ur Squamous Epith Cells Many H (None-Few) per lpf Urine Bacteria None Seen (None-Few) per hpf Hyaline Casts Few (None-Few) per lpf - Radiology Data Radiology results reviewed: Yes I reviewed the patient's radiology results.
[2018-10-14] MEDS ORDERED: MOM Conc 10 ML UD.LIQ PO PRN (18:06)
[2018-10-14] MEDS ORDERED: Naloxone 0.4 MG/ML INJ IVP PRN (18:06)
[2018-10-14] MEDS ORDERED: Acetaminophen/Butalbital/CaffeineTABLET PO PRN (18:11)
[2018-10-14] MEDS ORDERED: MORPHINE SUL Oral CONC 10 MG/0.5 ML ORAL.SYG SL PRN (18:14)
--- NOTE | 2018-10-14 18:32 | Internal Med History&Physical ---
Date of Encounter: 10/14/18 Time of Encounter: 18:00 Internal Medicine - H&P: HPI Chief complaint: R side pain Admitted From: Emergency Dept Plans for Post Hospital Care: Home History of present illness: Ms. Chambers is a 48 year old female with hx of HTN presented to ED with severe R side pain. She was evaluated and is being placed in observation for evaluation. Ms Chambers presented to ED with severe R side pain. She has been ill recently and has had some issues with diarrhea and congestion in her head and chest. Says other family members have been ill as well. She has not had fever or chills. No nausea or vomiting. Last episode of diarrhea was this AM. Earlier in the week she had urinary frequency but no dysuria. Yesterday she developed sudden severe R flank pain radiating to R groin area. Stated she had a similar type episode in past (2014) but not as bad. At that time she was told it was shingles. Denies hx of kidney stone (though in 2014 she had hydronephrosis and had a stent placed. Admits to hematuria but says it is "a family problem." She stated this pain is the worst she has ever had and nothing has made it better. Dilaudid helps for very short time. She also has had issues with cough and congestion. CXR is consistent with bronchitis. She also has multiple skin lesions which she says are tick bites (she has removed the ticks). Prior hx of Lyme disease treated. At this time she is very uncomfortable. She has severe R flank pain radiating to her groin. Following Dilaudid she is more comfortable for a brief time. Past Med Surg Social Fam HX - Past Medical History Medical history: asthma, GERD, hyperlipidemia, hypertension, other Additional medical history: chronic back pain Psychiatric history: anxiety, depression - Past Surgical History Surgical History: appendectomy, cholecystectomy, hysterectomy, orthopedic, other, BIBIANA/BSO, other Additional surgical history: Shoulder sx. neck and back. Heart cath Monday09/18/17 - Social History Smoking Status: Current every day smoker Smokeless Tobacco Status: No Alcohol use: none Drug use: none - Family History Father Family Member Ethnicity: Non- Living Status: Hx Family Cardiac Disorders: Yes (4-GA) Hx Family Respiratory Disorders: No Hx Family Cancer: Yes (throat) Hx Family GI Disorders: No Hx Family Endocrine Disorder: No Hx Family Neuromuscular Disorders: No Hx Family Neurologic Disorders: No Hx Family HEENT Disorders: No Hx Family Autoimmune Disorders: No Mother Family Member Ethnicity: Non- Living Status: Still Living Hx Family Cardiac Disorders: No Hx Family Respiratory Disorders: No Hx Family Cancer: No Hx Family GI Disorders: No Hx Family Endocrine Disorder: No Hx Family Neuromuscular Disorders: No Hx Family Neurologic Disorders: No Hx Family HEENT Disorders: No Hx Family Autoimmune Disorders: No Sister Family Member Ethnicity: Non- Living Status: Still Living Hx Family Cardiac Disorders: No Hx Family Respiratory Disorders: Yes Hx Family Cancer: Yes Hx Family GI Disorders: No Hx Family Endocrine Disorder: No Hx Family Neuromuscular Disorders: No Hx Family Neurologic Disorders: No Hx Family HEENT Disorders: No Hx Family Autoimmune Disorders: No Internal Medicine - H&P: Meds Albuterol Sulfate [Albuterol Inhaler] 2 puff IH Q4HR PRN 03/27/15 [History] Calcium Carbonate/Vitamin D3 [Calcium 600 + D Tablet] 1 tab PO DAILY 03/27/15 [History] Fluticasone Propionate Nasal [Flonase] 50 mcg NS BID PRN 03/27/15 [History] Montelukast [Singulair] 10 mg PO DAILY 03/27/15 [History] Metoprolol XL (24 HR) Succ [Toprol Xl] 25 mg PO DAILY 04/20/17 [History] Paroxetine HCl [Paxil] 60 mg PO DAILY 04/20/17 [History] Ranitidine HCl [Acid Stream Control Officer] 150 mg PO BID 04/20/17 [History] Aspirin Enteric Coated [Aspirin EC] 81 mg PO DAILY #30 tablet. 04/22/17 [Rx] Potassium Chloride Elixir [Potassium Chloride] 10 meq PO DAILY 08/10/17 [History] amLODIPine [Norvasc] 5 mg PO DAILY #30 tablet 08/11/17 [Rx] Beclomethasone Dipropionate [QVAR 80 mcg REDIHALER] 1 puff IH BID 10/14/18 [History] Docusate Sodium [Dulcolax Stool Softener] 100 mg PO DAILY PRN 10/14/18 [History] Ibuprofen [Motrin] 800 mg PO TID PRN 10/14/18 [History] Lidocaine Patch [Lidoderm 5% patch] 1 each TP DAILY PRN 10/14/18 [History] Pravastatin Sodium 10 mg PO DAILY 10/14/18 [History] Rivaroxaban [Xarelto] 10 mg PO 1700 10/14/18 [History] Spironolactone [Aldactone] 100 mg PO DAILY 10/14/18 [History] Ubidecarenone [Coenzyme Q10] 100 mg PO DAILY 10/14/18 [History] Allergy/AdvReac Type Severity Reaction Status Date / Time diazepam [From Valium] Allergy Severe Swelling Verified 09/22/17 22:06 of Lip/Tongue/Throat duloxetine [From Cymbalta] Allergy Severe Swelling Verified 09/22/17 22:06 of Lip/Tongue/Throat minocycline [Minocycline] Allergy Severe Swelling Verified 09/22/17 22:06 of Lip/Tongue/Throat olanzapine [From Zyprexa] Allergy Severe Swelling Verified 09/22/17 22:06 of Lip/Tongue/Throat iodine Allergy Mild SWELLING, Verified 09/22/17 22:06 SOB methylprednisolone Allergy Mild SWELLING,SO Verified 09/22/17 22:06 [From Medrol] B hydrocodone Allergy Swelling Verified 09/22/17 22:06 of Lip/Tongue/Throat Iodinated Contrast- Oral and Allergy Swelling Verified 09/22/17 22:06 IV Dye of Lip/Tongue/Throat Onion Allergy Swelling Verified 09/22/17 22:06 of Lip/Tongue/Throat oxycodone [From Percocet] AdvReac Mild Vomiting Verified 09/22/17 22:06 All Systems PM: A 10-system review of systems was performed and is negative for pertinent findings except as documented above in the HPI. - Constitutional Constitutional: malaise - EENT Eyes: no discharge, no pain Ears: no decreased hearing Nose, mouth and throat: dry mouth, nasal congestion, nasal discharge - Cardiovascular Cardiovascular ROS IM: no chest pain, no orthopnea, no palpitations - Respiratory Respiratory: cough, wheezing, chest congestion - Gastrointestinal Gastrointestinal: abdominal pain, cramping, diarrhea, loose stools - Genitourinary Genitourinary: urinary frequency, no dysuria - Musculoskeletal Musculoskeletal ROS IM: no arthralgias, no joint swelling - Integumentary Integumentary IM: new lesions, rash - Neurological Neurological ROS: no dizziness, no numbness - Endocrine Endocrine IM: no excessive sweating - Hematologic/Lymphatic Hematologic/Lymphatic: no easy bleeding - Allergic/Immunologic Allergic/Immunologic: wheezing, no itchy eyes - Constitutional Vitals: Temp Pulse Resp BP Pulse Ox 98.2 F 55 18 138/87 97 10/14/18 14:00 10/14/18 17:39 10/14/18 17:39 10/14/18 17:39 10/14/18 17:39 General appearance: Present: A&O X 3, severe distress (Has intermittent severe R side pain.) Exam: See below - Head Head exam: Present: normocephalic - Eye Eye exam: Present: EOMI, conjuntiva pink - ENT ENT exam: Present: mucous membranes dry - Neck Neck exam general surgery: Present: supple. Absent: thyromegaly - Respiratory Respiratory exam: Present: prolonged expiratory phase, wheezes Additional comments: Diffuse end exp wheeze. No rales or rhonchi. - Cardiovascular Cardiovascular exam: Present: RRR. Absent: tachycardia - GI/Abdominal GI/Abdominal exam: Present: soft, tenderness (r lower abdomen) - Extremities Exam Extremities exam: Present: warm. Absent: tenderness - Back Exam Back exam: Present: paraspinal tenderness (R side muscle tenderness in lumbar area). Absent: vertebral tenderness - Neurological Exam Neurological exam: Present: alert, oriented X3, no focal deficits - Skin Skin exam: Present: dry, rash (Multiple lesions - dry scabbed on abdomen, legs, arms, neck), warm Internal Med - H&P Results - Labs CBC & Chem 7: 10/14/18 14:14 10/14/18 14:14 Labs: Short CBC 10/14/18 Range/Units 14:14 WBC 24.1 H (4.3-11.1) K/mcL Hgb 14.4 (11.5-15.4) g/dL Hct 42.9 (35.3-44.9) % Plt Count 343 (140-400) K/mcL Neutrophils # 19.5 H (1.6-8.9) K/mcL BMP 10/14/18 14:14 Sodium 139 Potassium 4.0 Chloride 110 H Carbon Dioxide 22 L BUN 6 Creatinine 0.77 Glucose 114 H Calcium 8.9 Liver Function 10/14/18 Range/Units 14:14 Total Bilirubin 0.5 (0.3-1.0) mg/dL Direct Bilirubin 0.1 (0.0-0.2) mg/dL AST 14 (13-39) Units/L ALT 10 (7-52) Units/L Alkaline Phosphatase 112 H (34-104) Units/L Albumin 4.0 (3.5-5.7) g/dL Urine 10/14/18 Range/Units 14:31 Urine Color Dark Yellow (Yellow) Urine Clarity Clear (Clear) Urine pH 6.0 (5.0-8.0) pH Units Ur Specific [place] 1.016 (1.010-1.025) Urine Protein 30 H (Neg-Trace) mg/dL Urine Glucose (UA) Normal (Normal) mg/dL - Impressions ITS Impressions Abdomen/Pelvis CT 10/14/18 14:16 IMPRESSION: No acute abnormality in the abdomen or pelvis. Intra- and extra-hepatic biliary ductal dilatation, likely related to post cholecystectomy changes. Status post cholecystectomy, appendectomy and hysterectomy. D/ / Ramon Sandoval MD / Ramon Sandoval MD Interpreting Provider: Ramon Sandoval MD Chest X-Ray 10/14/18 16:35 IMPRESSION: Increased lung markings at the bilateral parahilar regions, may be related to bronchitis. D/ / Ramon Sandoval MD / Ramon Snadoval MD Interpreting Provider: Ramon Sandoval MD - Assessment and Plan (1) Right flank pain Current Visit: Yes Status: Acute Assessment and plan: Pt had sudden onset of R flank/R groin pain. CT negative for stone or hydronephrosis. Pain is crampy in nature. Place in observation. IV fluids. Pain control Abx as WBC is 24K Check ultrasound of kidneys, uric acid. Urine with large blood - culture pending If persists will most likely need urology consult. (2) Acute bronchitis Current Visit: Yes Status: Acute Assessment and plan: Pt with symptoms of acute bronchitis and abnormal CXR. Will start aerosols and abx Wheezing as well with hx asthma - start steroids. Qualifiers: Bronchitis organism: other organism Qualified Code(s): J20.8 - Acute bronchitis due to other specified organisms (3) Leukocytosis Current Visit: Yes Status: Acute Assessment and plan: Pt has markedly elevated WBC. No recent abx or steroids. Has bronchitis, abd pain and diarrhea. Abx started to cover chest and urine. Qualifiers: Leukocytosis type: other Qualified Code(s): D72.828 - Other elevated white blood cell count (4) Hypertension Current Visit: No Status: Chronic Assessment and plan: Currently controlled though was elevated in EMS. Continue home meds. Qualifiers: Hypertension type: essential hypertension Qualified Code(s): I10 - Essential (primary) hypertension (5) Asthma Current Visit: Yes Status: Chronic Assessment and plan: Currently has bronchitis. Will start abx and steroids. Qualifiers: Asthma severity: moderate Asthma persistence: persistent Asthma complication type: uncomplicated Qualified Code(s): J45.40 - Moderate persistent asthma, uncomplicated (6) Tobacco abuse Current Visit: Yes Status: Chronic Assessment and plan: Cessation counselling. Nicotine patch - Time Spent With Patient Total time spent is greater than 50% in coordination of care (as documented) at patient's floor/unit and/or counseling patient:
[2018-10-14 18:38] LABS: Uric Acid 6.7 mg/dL (2.3-7.6)
[2018-10-14] MEDS ORDERED: Fluticasone Propionate Nasal 50 MCG/SPRAY BOTTLE NS PRN (18:50)
[2018-10-14 19:13] LABS: Creatine Kinase 92 Units/L (30-223)
[2018-10-14] MEDS: Famotidine 20 MG TABLET PO SCH (20:51)
[2018-10-14] MEDS: MORPHINE SUL Oral CONC 10 MG/0.5 ML ORAL.SYG SL PRN (20:51)
[2018-10-14] MEDS: Levofloxacin 750 MG/150 ML 750 MG/150 ML BAG IVPB SCH (20:51)
[2018-10-14] MEDS: Ketorolac 15 MG/ML VIAL IVP SCH (20:53)
[2018-10-14] MEDS ORDERED: Gabapentin 300 MG CAPSULE PO SCH (21:00)
[2018-10-14] MEDS ORDERED: cloNIDine HCl 0.1 MG TABLET PO SCH (21:00)
[2018-10-14] MEDS: Ondansetron 4 MG/2 ML VIAL IVP PRN (21:50)
[2018-10-14] MEDS: Ringers Solution, Lactated 1,000 ML IVC SCH (22:22)
[2018-10-14] MEDS: MOMETASONE FUROATE 100 mcg Inhaler IH SCH (23:14)
[2018-10-15] MEDS: Ketorolac 15 MG/ML VIAL IVP SCH ×4 (00:23→19:13)
[2018-10-15] MEDS: MORPHINE SUL Oral CONC 10 MG/0.5 ML ORAL.SYG SL PRN ×2 (02:52→09:57)
[2018-10-15] MEDS: Ringers Solution, Lactated 1,000 ML IVC SCH (04:43)
[2018-10-15 06:33] LABS: Basophils # 0.1 K/mcL (0.0-0.2); Basophils % 0.4 %; Eosinophils # 0.3 K/mcL (0.0-0.6); Eosinophils % 1.8 %; Hematocrit 41.4 % (35.3-44.9); Hemoglobin 13.7 g/dL (11.5-15.4); Immature Granulocytes % 0.5 % (0-4); Lymphocytes # 4.9 K/mcL (0.6-4.6); Lymphocytes % 27.1 %; Mean Corpuscular HGB Conc 33.1 g/dL (31.6-35.5); Mean Corpuscular Hemoglobin 29.8 pg (28.0-33.3); Mean Platelet Volume 8.5 fL (9.4-12.4); Monocytes # 0.9 K/mcL (0.0-1.3); Monocytes % 4.7 %; Neutrophils # 11.7 K/mcL (1.6-8.9); Platelet Count 315 K/mcL (140-400); Red Cell Distribution Width 14.4 % (11.5-14.5); Segmented Neutrophils % 65.5 %
[2018-10-15 07:21] LABS: BUN/Creatinine Ratio 9 (6-26); Blood Urea Nitrogen 7 mg/dL (6-20); Calcium 8.8 mg/dL (8.6-10.3); Carbon Dioxide 19 mEq/L (23-29); Chloride 108 mEq/L (98-107); Glucose 96 mg/dL (70-105); Magnesium 1.8 mg/dL (1.6-2.6); Osmolality,Calculated 284 (280-300); Potassium 4.6 mEq/L (3.5-5.1); Sodium 138 mEq/L (136-145); eGFR For Non-African Americans > 60 (> 60)
[2018-10-15] MEDS: MOMETASONE FUROATE 100 mcg Inhaler IH SCH ×2 (07:34→20:51)
[2018-10-15] MEDS ORDERED: PAROXETINE HCL 60 MG PO SCH (09:00)
[2018-10-15] MEDS: amLODIPine 5 MG TABLET PO SCH (09:54)
[2018-10-15] MEDS: Levofloxacin 750 MG/150 ML 750 MG/150 ML BAG IVPB SCH (09:54)
[2018-10-15] MEDS: Potassium Chloride Elixir 20 MEQ/15 ML UDC PO SCH (09:54)
[2018-10-15] MEDS: Aspirin Enteric Coated 81 MG Tablet PO SCH (09:54)
[2018-10-15] MEDS: Famotidine 20 MG TABLET PO SCH ×2 (09:54→19:14)
[2018-10-15] MEDS: Metoprolol XL (24 HR) Succ 25 MG TAB.ER.24H PO SCH (09:54)
--- NOTE | 2018-10-15 14:59 | Internal Med Progress Note ---
<Mani Tristan - Last Filed: 10/15/18 14:53> Hospitalist Progress Note - Encounter Date of Encounter: 10/15/18 Time of Encounter: 09:55 - Subjective Interval History: Patient seen and examined at bedside. She reports continued right-sided flank/low back pain radiating around the lower abdomen and groin. Pain is fairly constant. Pain meds are helping. No further diarrhea since before admission. No urinary symptoms at this time. She feels her chest congestion is mildly improved from yesterday. Denies fevers, chills, chest pain, or rashes. - Exam Vitals: Temp Pulse Resp BP Pulse Ox 97.8 F 63 16 110/69 93 10/15/18 10:39 10/15/18 10:39 10/15/18 10:39 10/15/18 10:39 10/15/18 10:39 Exam: GEN: No acute distress, A&O3 HEAD: Atraumatic, normocephalic EYES: Pupils symmetric, sclera white, conjunctiva pink HEART: RRR, normal S1 and S2, no murmurs LUNGS: Diffuse wheezes, no rales or rhonchi ABD: Soft, tender right lower abd, nondistended, bowel sounds present BACK: right sided lumbar tenderness EXT: No edema noted, pulses 2/4 NEURO: No focal deficits, cooperative with exam SKIN: multiple dry scabbed lesions (abd, legs, arms, neck), no rashes - Assessment and Plan (1) Right flank pain Current Visit: Yes Status: Acute Assessment and Plan: Sudden onset of R flank/R groin pain CT negative for stone or hydronephrosis Continue IV fluids and antibiotics with leukocytosis Pain control Renal ultrasound pending Urine with large blood - culture pending - no RBCs noted - will check urine myoglobin If persists will most likely need urology consult (2) Hematuria Current Visit: Yes Status: Acute Assessment and Plan: Blood on UA, but no microscopic RBCs Will check urine myoglobin (3) Leukocytosis Current Visit: Yes Status: Acute Assessment and Plan: Improving - down to 18 Likely secondary to acute bronchitis or possibly GI/ source Continue levaquin for both chest and abdomen source (4) Acute bronchitis Current Visit: Yes Status: Acute Assessment and Plan: Acute bronchitis and asthma exacerbation CXR with increased bilateral parahilar regions Continue albuterol and antibiotics (5) Asthma Current Visit: Yes Status: Chronic Assessment and Plan: As above (6) Tobacco abuse Current Visit: Yes Status: Chronic Assessment and Plan: Cessation counseling Nicotine patch DVT Prophylaxis: Patient on xarelto - Time Spent with Patient Total time spent is greater than 50% in coordination of care (as documented) at patient's floor/unit and/or counseling patient: Internal Medicine: Result - Labs CBC & Chem 7: 10/15/18 05:58 10/15/18 05:58 Labs: Short CBC 10/15/18 Range/Units 05:58 WBC 18.0 H (4.3-11.1) K/mcL Hgb 13.7 (11.5-15.4) g/dL Hct 41.4 (35.3-44.9) % Plt Count 315 (140-400) K/mcL Neutrophils # 11.7 H (1.6-8.9) K/mcL BMP 10/15/18 05:58 Sodium 138 Potassium 4.6 Chloride 108 H Carbon Dioxide 19 L BUN 7 Creatinine 0.79 Glucose 96 Calcium 8.8 Urine 10/14/18 Range/Units 14:31 Urine Color Dark Yellow (Yellow) Urine Clarity Clear (Clear) Urine pH 6.0 (5.0-8.0) pH Units Ur Specific [place] 1.016 (1.010-1.025) Urine Protein 30 H (Neg-Trace) mg/dL Urine Glucose (UA) Normal (Normal) mg/dL - Impressions Impressions Abdomen/Pelvis CT 10/14/18 14:16 IMPRESSION: No acute abnormality in the abdomen or pelvis. Intra- and extra-hepatic biliary ductal dilatation, likely related to post cholecystectomy changes. Status post cholecystectomy, appendectomy and hysterectomy. D/ / Ramon Sandoval MD / Ramon Sandoval MD Interpreting Provider: Ramon Sandoval MD Chest X-Ray 10/14/18 16:35 IMPRESSION: Increased lung markings at the bilateral parahilar regions, may be related to bronchitis. D/ / Ramon Sandoval MD / Ramon Sandoval MD Interpreting Provider: Ramon Sandoval MD Consult Discharge Plan - Plan Referrals: Michaelle William, [employer] [Primary Care Provider] - <Haroon Serrano - Last Filed: 10/15/18 15:43> Hospitalist Progress Note - Encounter Date of Encounter: 10/15/18 - Exam Vitals: Temp Pulse Resp BP Pulse Ox 97.8 F 63 16 110/69 93 10/15/18 10:39 10/15/18 10:39 10/15/18 10:39 10/15/18 10:39 10/15/18 10:39 - Assessment and Plan (1) Right flank pain Current Visit: Yes Status: Acute (2) Acute bronchitis Current Visit: Yes Status: Acute (3) Leukocytosis Current Visit: Yes Status: Acute (4) Hypertension Current Visit: No Status: Chronic (5) Asthma Current Visit: Yes Status: Chronic (6) Tobacco abuse Current Visit: Yes Status: Chronic - Time Spent with Patient Total time spent is greater than 50% in coordination of care (as documented) at patient's floor/unit and/or counseling patient: Internal Medicine: Result - Labs CBC & Chem 7: 10/15/18 05:58 10/15/18 05:58 Labs: Short CBC 10/15/18 Range/Units 05:58 WBC 18.0 H (4.3-11.1) K/mcL Hgb 13.7 (11.5-15.4) g/dL Hct 41.4 (35.3-44.9) % Plt Count 315 (140-400) K/mcL Neutrophils # 11.7 H (1.6-8.9) K/mcL BMP 10/15/18 05:58 Sodium 138 Potassium 4.6 Chloride 108 H Carbon Dioxide 19 L BUN 7 Creatinine 0.79 Glucose 96 Calcium 8.8 Urine 10/14/18 Range/Units 14:31 Urine Color Dark Yellow (Yellow) Urine Clarity Clear (Clear) Urine pH 6.0 (5.0-8.0) pH Units Ur Specific [place] 1.016 (1.010-1.025) Urine Protein 30 H (Neg-Trace) mg/dL Urine Glucose (UA) Normal (Normal) mg/dL - Impressions Impressions Abdomen/Pelvis CT 10/14/18 14:16 IMPRESSION: No acute abnormality in the abdomen or pelvis. Intra- and extra-hepatic biliary ductal dilatation, likely related to post cholecystectomy changes. Status post cholecystectomy, appendectomy and hysterectomy. D/ / Ramon Sandoval MD / Ramon Sandoval MD Interpreting Provider: Ramon Sandoval MD Chest X-Ray 10/14/18 16:35 IMPRESSION: Increased lung markings at the bilateral parahilar regions, may be related to bronchitis. D/ / Ramon Sandoval MD / Ramon Sandoval MD Interpreting Provider: Ramon Sandoval MD - Attending Attestation I examined this patient and my medical decision-making was reviewed with the Resident Physician on 10/15/18. I agree with the documented findings, disposition and treatment plan as described except to the extent set forth below. Ms Chambers is currently in observation for abdominal pain. She remains moderate to high risk due to potential for worsening clinical status. Ms Chambers is still having pain though seems somewhat better than yesterday. WBC still elevated but improving. No vomiting. No diarrhea. No dysuria and no fever or chills. To have renal ultrasound. Exam alert Moderate uncomfortable Mucus membranes dry Heart reg No wheeze abd tender RLQ area and lumbar I/P 1. Abdominal pain - still not clear on etiology. Renal US pending. 2. Leukocytosis - some improvement today. Not sure of source 3. Multiple tick bites - doubt infection Further diagnoses and plan as above. <Mani Tristan - Last Filed: 10/15/18 14:53> (3) Leukocytosis Qualifiers: Leukocytosis type: other Qualified Code(s): D72.828 - Other elevated white blood cell count (4) Acute bronchitis Qualifiers: Bronchitis organism: other organism Qualified Code(s): J20.8 - Acute bronchitis due to other specified organisms (5) Asthma Qualifiers: Asthma severity: moderate Asthma persistence: persistent Asthma complication type: uncomplicated Qualified Code(s): J45.40 - Moderate persistent asthma, uncomplicated <Haroon Serrano A - Last Filed: 10/15/18 15:43> (2) Acute bronchitis Qualifiers: Bronchitis organism: other organism Qualified Code(s): J20.8 - Acute bronchitis due to other specified organisms (3) Leukocytosis Qualifiers: Leukocytosis type: other Qualified Code(s): D72.828 - Other elevated white blood cell count (4) Hypertension Qualifiers: Hypertension type: essential hypertension Qualified Code(s): I10 - Essential (primary) hypertension (5) Asthma Qualifiers: Asthma severity: moderate Asthma persistence: persistent Asthma complication type: uncomplicated Qualified Code(s): J45.40 - Moderate persistent asthma, uncomplicated
[2018-10-15] MEDS ORDERED: Albuterol 2.5 MG/3 ML NEBULIZER IH PRN (15:10)
[2018-10-15] MEDS: 0.9 % Sodium Chloride 1,000 ML IVC SCH (19:12)
[2018-10-15] MEDS: Nicotine 21 MG PATCH.TD24 TD SCH (19:12)
[2018-10-15] MEDS: *HR* Rivaroxaban 10 MG TABLET PO SCH (19:14)
[2018-10-16] MEDS: Ondansetron 4 MG/2 ML VIAL IVP PRN (00:08)
[2018-10-16] MEDS: Ketorolac 15 MG/ML VIAL IVP SCH ×5 (01:01→23:51)
[2018-10-16] MEDS: MORPHINE SUL Oral CONC 10 MG/0.5 ML ORAL.SYG SL PRN ×4 (04:17→20:47)
[2018-10-16] MEDS: 0.9 % Sodium Chloride 1,000 ML IVC SCH ×3 (04:20→23:52)
[2018-10-16 05:43] LABS: Basophils # 0.1 K/mcL (0.0-0.2); Basophils % 0.5 %; Eosinophils # 0.3 K/mcL (0.0-0.6); Eosinophils % 2.7 %; Hematocrit 38.2 % (35.3-44.9); Hemoglobin 12.3 g/dL (11.5-15.4); Immature Granulocytes % 0.5 % (0-4); Immature Platelets 0.9 % (1.1-6.1); Lymphocytes # 4.4 K/mcL (0.6-4.6); Lymphocytes % 34.6 %; Mean Corpuscular HGB Conc 32.2 g/dL (31.6-35.5); Mean Corpuscular Hemoglobin 29.3 pg (28.0-33.3); Mean Platelet Volume 8.5 fL (9.4-12.4); Monocytes # 0.6 K/mcL (0.0-1.3); Monocytes % 4.8 %; Neutrophils # 7.3 K/mcL (1.6-8.9); Platelet Count 311 K/mcL (140-400); Red Cell Distribution Width 14.3 % (11.5-14.5); Segmented Neutrophils % 56.9 %
[2018-10-16 06:00] LABS: BUN/Creatinine Ratio 9 (6-26); Blood Urea Nitrogen 7 mg/dL (6-20); Calcium 8.9 mg/dL (8.6-10.3); Carbon Dioxide 25 mEq/L (23-29); Chloride 110 mEq/L (98-107); Glucose 89 mg/dL (70-105); Osmolality,Calculated 289 (280-300); Potassium 4.1 mEq/L (3.5-5.1); Sodium 141 mEq/L (136-145); eGFR For Non-African Americans > 60 (> 60)
[2018-10-16] MEDS: MOMETASONE FUROATE 100 mcg Inhaler IH SCH ×2 (07:39→20:52)
[2018-10-16 09:29] LABS: C-Reactive Protein 17 mg/L (Less than 10)
[2018-10-16] MEDS: Aspirin Enteric Coated 81 MG Tablet PO SCH (09:33)
[2018-10-16] MEDS: Famotidine 20 MG TABLET PO SCH ×2 (09:34→20:46)
[2018-10-16] MEDS: Levofloxacin 750 MG/150 ML 750 MG/150 ML BAG IVPB SCH (09:34)
[2018-10-16] MEDS: Metoprolol XL (24 HR) Succ 25 MG TAB.ER.24H PO SCH (09:34)
[2018-10-16] MEDS: amLODIPine 5 MG TABLET PO SCH (09:34)
[2018-10-16] MEDS: Nicotine 21 MG PATCH.TD24 TD SCH (09:35)
[2018-10-16] MEDS: Potassium Chloride Elixir 20 MEQ/15 ML UDC PO SCH (09:38)
--- NOTE | 2018-10-16 13:32 | Internal Med Progress Note ---
<Mani Tristan Ken - Last Filed: 10/16/18 13:30> Hospitalist Progress Note - Encounter Date of Encounter: 10/16/18 Time of Encounter: 09:10 - Subjective Interval History: Patient seen and examined at bedside. Her pain has changed location. She is now just having more localized right groin and lower right abdominal pain. No longer having back pain. Pain is fairly constant. Pain meds are helping. No change in bowels. No urinary symptoms. Reports her breathing, cough, and chest congestion is markedly improved today. Denies fevers, chills, chest pain, or rashes. No acute overnight events. - Exam Vitals: Temp Pulse Resp BP Pulse Ox 97.5 F L 56 15 96/61 96 10/16/18 10:41 10/16/18 10:41 10/16/18 10:41 10/16/18 10:41 10/16/18 10:41 Exam: GEN: No acute distress, A&O3 HEAD: Atraumatic, normocephalic EYES: Pupils symmetric, sclera white, conjunctiva pink HEART: RRR, normal S1 and S2, no murmurs LUNGS: Mild wheeze (improving) no rales or rhonchi ABD: Soft, tender right lower abd, nondistended, bowel sounds present BACK: no longer with right sided tenderness EXT: No edema noted, pulses 2/4 NEURO: No focal deficits, cooperative with exam SKIN: multiple dry scabbed lesions (abd, legs, arms, neck), no rashes - Assessment and Plan (1) Right flank pain Current Visit: Yes Status: Acute Assessment and Plan: Sudden onset of pain with location now in right groin - no longer having right flank pain CT negative for stone or hydronephrosis, but renal ultrasound shows bilateral non-obstructing stones Given the location change of her pain and stones on ultrasound she is likely passing a renal stone Continue IV fluids and antibiotics with leukocytosis Pain control Add Flomax Urine with large blood - culture pending - no RBCs noted - urine myoglobin still pending Will hold on urology consult today with her pain migrating along the path of the ureter - if not improving or passing the stone by tomorrow, may consult urology at that time (2) Hematuria Current Visit: Yes Status: Acute Assessment and Plan: Blood on UA, but no microscopic RBCs Urine myoglobin pending (3) Leukocytosis Current Visit: Yes Status: Acute Assessment and Plan: Improving - down to 12.8 Likely secondary to acute bronchitis or possibly GI/ source Continue levaquin for both chest and possible GI/ source (4) Acute bronchitis Current Visit: Yes Status: Acute Assessment and Plan: Acute bronchitis and asthma exacerbation CXR with increased bilateral parahilar regions Continue albuterol and antibiotics (5) Asthma Current Visit: Yes Status: Chronic Assessment and Plan: As above (6) Tobacco abuse Current Visit: Yes Status: Chronic Assessment and Plan: Cessation counseling Nicotine patch DVT Prophylaxis: Patient on xarelto - Time Spent with Patient Total time spent is greater than 50% in coordination of care (as documented) at patient's floor/unit and/or counseling patient: Internal Medicine: Result - Labs CBC & Chem 7: 10/16/18 05:19 10/16/18 05:19 Labs: Short CBC 10/16/18 Range/Units 05:19 WBC 12.8 H (4.3-11.1) K/mcL Hgb 12.3 (11.5-15.4) g/dL Hct 38.2 (35.3-44.9) % Plt Count 311 (140-400) K/mcL Neutrophils # 7.3 (1.6-8.9) K/mcL BMP 10/16/18 05:19 Sodium 141 Potassium 4.1 Chloride 110 H Carbon Dioxide 25 BUN 7 Creatinine 0.80 Glucose 89 Calcium 8.9 - Impressions Impressions Retroperitoneum Ultrasound 10/15/18 17:00 IMPRESSION: Bilateral nonobstructing nephroliths lower pole of both kidneys. Small left renal cyst lower pole. Unremarkable urinary bladder appearance. Visualization on current study is improved over prior study which was compromised due to a large amount of bowel gas. D/ / 10/15/2018 18:14:04 Ayesha Pringle MD / [email or web address] Interpreting Provider: Ayesha Pringle MD Consult Discharge Plan - Plan Referrals: Michaelle William, [employer] [Primary Care Provider] - <Haroon Serrano - Last Filed: 10/16/18 16:27> Hospitalist Progress Note - Encounter Date of Encounter: 10/16/18 - Exam Vitals: Temp Pulse Resp BP Pulse Ox 98.0 F 53 15 107/64 96 10/16/18 14:32 10/16/18 14:32 10/16/18 14:32 10/16/18 14:32 10/16/18 14:32 - Assessment and Plan (1) Right flank pain Current Visit: Yes Status: Acute (2) Acute bronchitis Current Visit: Yes Status: Acute (3) Leukocytosis Current Visit: Yes Status: Acute (4) Hypertension Current Visit: No Status: Chronic (5) Asthma Current Visit: Yes Status: Chronic (6) Tobacco abuse Current Visit: Yes Status: Chronic - Time Spent with Patient Total time spent is greater than 50% in coordination of care (as documented) at patient's floor/unit and/or counseling patient: Internal Medicine: Result - Labs CBC & Chem 7: 10/16/18 05:19 10/16/18 05:19 Labs: Short CBC 10/16/18 Range/Units 05:19 WBC 12.8 H (4.3-11.1) K/mcL Hgb 12.3 (11.5-15.4) g/dL Hct 38.2 (35.3-44.9) % Plt Count 311 (140-400) K/mcL Neutrophils # 7.3 (1.6-8.9) K/mcL BMP 10/16/18 05:19 Sodium 141 Potassium 4.1 Chloride 110 H Carbon Dioxide 25 BUN 7 Creatinine 0.80 Glucose 89 Calcium 8.9 - Impressions Impressions Retroperitoneum Ultrasound 10/15/18 17:00 IMPRESSION: Bilateral nonobstructing nephroliths lower pole of both kidneys. Small left renal cyst lower pole. Unremarkable urinary bladder appearance. Visualization on current study is improved over prior study which was compromised due to a large amount of bowel gas. D/ / 10/15/2018 18:14:04 Ayesha Pringle MD / [facility] Interpreting Provider: Ayesha Pringle MD - Attending Attestation I examined this patient and my medical decision-making was reviewed with the Resident Physician on 10/16/18. I agree with the documented findings, disposition and treatment plan as described except to the extent set forth below. Ms Chambers is currently in observation for abdominal pain and leukocytosis. She remains moderate to high risk due to potential for worsening clinical status. Ms Chambers continues to have abdominal pain though now it has moved more down into the groin area. No fever or chills. No diarrhea. No vomiting. No dysuria. Exam Alert. Uncomfortable. Mucus membranes moist Heart reg and not tachy Lungs clear now Abd with some tenderness deep in R groin No edema I/P 1. R side abdominal pain - at this point it still seems to be like a moving stone. US shows stones in kidneys. WBC improving. Urine cx negative. 2. Asthma - controlled 3. Skin lesions - pt reports as tick bites 4. Tobacco abuse Further diagnoses and plan as above. Anticipate d/c in next 24 -48 hours <Mani Tristan - Last Filed: 10/16/18 13:30> (3) Leukocytosis Qualifiers: Leukocytosis type: other Qualified Code(s): D72.828 - Other elevated white blood cell count (4) Acute bronchitis Qualifiers: Bronchitis organism: other organism Qualified Code(s): J20.8 - Acute bronchitis due to other specified organisms (5) Asthma Qualifiers: Asthma severity: moderate Asthma persistence: persistent Asthma complication type: uncomplicated Qualified Code(s): J45.40 - Moderate persistent asthma, uncomplicated <Haroon Serrano - Last Filed: 10/16/18 16:27> (2) Acute bronchitis Qualifiers: Bronchitis organism: other organism Qualified Code(s): J20.8 - Acute bronchitis due to other specified organisms (3) Leukocytosis Qualifiers: Leukocytosis type: other Qualified Code(s): D72.828 - Other elevated white blood cell count (4) Hypertension Qualifiers: Hypertension type: essential hypertension Qualified Code(s): I10 - Essential (primary) hypertension (5) Asthma Qualifiers: Asthma severity: moderate Asthma persistence: persistent Asthma complication type: uncomplicated Qualified Code(s): J45.40 - Moderate persistent asthma, uncomplicated
[2018-10-16] MEDS: *HR* Rivaroxaban 10 MG TABLET PO SCH (18:06)
[2018-10-16 23:25] LABS: Bilirubin,Urine Negative (Negative); Blood,Urine Moderate (Negative); Clarity,Urine Clear (Clear); Color,Urine Yellow (Yellow); Glucose,Urine (UA) Normal (Normal); Ketones,Urine Negative (Negative); Leukocyte Esterase,Urine Negative (Negative); Nitrite,Urine Negative (Negative); Protein,Urine Negative (Neg-Trace); Specific Gravity,Urine 1.008 (1.010-1.025); Urobilinogen,Urine Normal (Normal)
[2018-10-16 23:27] LABS: Bacteria,Urine None Seen per hpf (None-Few); Hyaline Casts,Urine None Seen per lpf (None-Few); Squamous Epithelial Cell,Urine Many per lpf (None-Few); WBC,Urine 0-3 per hpf (0-3)
[2018-10-17] MEDS: MORPHINE SUL Oral CONC 10 MG/0.5 ML ORAL.SYG SL PRN ×4 (03:28→23:11)
[2018-10-17] MEDS: Ketorolac 15 MG/ML VIAL IVP SCH ×3 (05:37→17:12)
[2018-10-17] MEDS ORDERED: Acetaminophen IV 500 MG/50 ML INFUS..BTL IVPB ONE (06:40)
[2018-10-17] MEDS: MOMETASONE FUROATE 100 mcg Inhaler IH SCH ×2 (07:51→20:41)
[2018-10-17] MEDS ORDERED: levoFLOXacin 750 MG TABLET PO SCH (09:00)
[2018-10-17 09:37] LABS: Basophils # 0.1 K/mcL (0.0-0.2); Basophils % 0.5 %; Eosinophils # 0.3 K/mcL (0.0-0.6); Eosinophils % 2.8 %; Hematocrit 38.4 % (35.3-44.9); Hemoglobin 12.5 g/dL (11.5-15.4); Immature Granulocytes % 0.5 % (0-4); Lymphocytes # 4.1 K/mcL (0.6-4.6); Lymphocytes % 35.1 %; Mean Corpuscular HGB Conc 32.6 g/dL (31.6-35.5); Mean Corpuscular Hemoglobin 29.6 pg (28.0-33.3); Mean Corpuscular Volume 90.8 fL (83.0-100.0); Mean Platelet Volume 8.6 fL (9.4-12.4); Monocytes # 0.6 K/mcL (0.0-1.3); Monocytes % 4.7 %; Neutrophils # 6.6 K/mcL (1.6-8.9); Platelet Count 247 K/mcL (140-400); Red Blood Count 4.23 M/mcL (3.82-4.97); Red Cell Distribution Width 14.1 % (11.5-14.5); Segmented Neutrophils % 56.4 %
[2018-10-17] MEDS: Aspirin Enteric Coated 81 MG Tablet PO SCH (10:04)
[2018-10-17] MEDS: Famotidine 20 MG TABLET PO SCH ×2 (10:04→20:43)
[2018-10-17] MEDS: Metoprolol XL (24 HR) Succ 25 MG TAB.ER.24H PO SCH (10:05)
[2018-10-17] MEDS: amLODIPine 5 MG TABLET PO SCH (10:05)
[2018-10-17] MEDS: Potassium Chloride Elixir 20 MEQ/15 ML UDC PO SCH (10:06)
[2018-10-17] MEDS: Nicotine 21 MG PATCH.TD24 TD SCH (10:06)
[2018-10-17 10:40] LABS: BUN/Creatinine Ratio 8 (6-26); Blood Urea Nitrogen 7 mg/dL (6-20); Calcium 8.6 mg/dL (8.6-10.3); Carbon Dioxide 26 mEq/L (23-29); Chloride 109 mEq/L (98-107); Glucose 92 mg/dL (70-105); Osmolality,Calculated 290 (280-300); Potassium 3.9 mEq/L (3.5-5.1); Sodium 141 mEq/L (136-145); eGFR For Non-African Americans > 60 (> 60)
[2018-10-17] MEDS: *HR* Promethazine 25 MG/ML VIAL IVP PRN (12:18)
[2018-10-17] MEDS: 0.9 % Sodium Chloride 1,000 ML IVC SCH (12:20)
--- NOTE | 2018-10-17 14:40 | Urology - Consult Note ---
Date of Encounter: 10/17/18 Time of Encounter: 14:37 - Assessment and Plan (1) Right flank pain Current Visit: Yes Status: Acute Assessment and plan: Patient is a 48-year-old female who presents with right flank pain and right lo wer quadrant pain. Vital signs are currently stable and afebrile. White blood cell count is trending down to 11.6. Renal function is normal and reassuring. I reviewed CT findings as well as ultrasound findings with patient and her sister at bedside. There does not appear to be any obstructive uropathy. Urine cultures are negative. Dr. Mercer will be in to reevaluate patient and possibly discuss a retrograde pyelogram if patient wishes to proceed. Urology CN:HPI Consult date: 10/17/18 Reason for consult Urology: Other (right flank pain) Requesting physician: Alvin Naidu History of present illness: Patient is a 48-year-old female who presents with a three-day history of right flank pain. Patient reports pain is now relocated to the right lower quadrant. Patient admits to continued dysuria, urgency, and hesitancy. Patient initially presented to the emergency department 3 days ago where she underwent a CT of the abdomen and pelvis that was reassuring for no renal stones or hydronephrosis. Patient continued to have right flank pain, and a renal ultrasound was ordered. Renal ultrasound was suggestive of nephrolithiasis, but there was no hydronephrosis or obstructive uropathy identified. Blood and urine cultures are all negative. Patient denies any known family history of renal stones or malignancy. Currently, patient is sitting upright in bed resting comfortably in no apparent distress. Patient denies any fever, chills, gross hematuria or incontinence. Past Med Surg Social Fam HX - Past Medical History Medical history: asthma, GERD, hyperlipidemia, hypertension, other Additional medical history: chronic back pain Psychiatric history: anxiety, depression - Past Surgical History Surgical History: appendectomy, cholecystectomy, hysterectomy, orthopedic, other, BIBIANA/BSO, other Additional surgical history: Shoulder sx. neck and back. Heart cath Monday - Social History Smoking Status: Current every day smoker Smokeless Tobacco Status: No Alcohol use: none Drug use: none - Family History Father Family Member Ethnicity: Non- Living Status: Hx Family Cardiac Disorders: Yes (4-IN) Hx Family Respiratory Disorders: No Hx Family Cancer: Yes (throat) Hx Family GI Disorders: No Hx Family Endocrine Disorder: No Hx Family Neuromuscular Disorders: No Hx Family Neurologic Disorders: No Hx Family HEENT Disorders: No Hx Family Autoimmune Disorders: No Mother Family Member Ethnicity: Non- Living Status: Still Living Hx Family Cardiac Disorders: No Hx Family Respiratory Disorders: No Hx Family Cancer: No Hx Family GI Disorders: No Hx Family Endocrine Disorder: No Hx Family Neuromuscular Disorders: No Hx Family Neurologic Disorders: No Hx Family HEENT Disorders: No Hx Family Autoimmune Disorders: No Sister Family Member Ethnicity: Non- Living Status: Still Living Hx Family Cardiac Disorders: No Hx Family Respiratory Disorders: Yes Hx Family Cancer: Yes Hx Family GI Disorders: No Hx Family Endocrine Disorder: No Hx Family Neuromuscular Disorders: No Hx Family Neurologic Disorders: No Hx Family HEENT Disorders: No Hx Family Autoimmune Disorders: No Medications and Allergies Albuterol Sulfate [Albuterol Inhaler] 2 puff IH Q4HR PRN 03/27/15 [History] Calcium Carbonate/Vitamin D3 [Calcium 600 + D Tablet] 1 tab PO DAILY 03/27/15 [History] Fluticasone Propionate Nasal [Flonase] 50 mcg NS BID PRN 03/27/15 [History] Montelukast [Singulair] 10 mg PO DAILY 03/27/15 [History] Metoprolol XL (24 HR) Succ [Toprol Xl] 25 mg PO DAILY 04/20/17 [History] Paroxetine HCl [Paxil] 60 mg PO DAILY 04/20/17 [History] Ranitidine HCl [Acid [employer]] 150 mg PO BID 04/20/17 [History] Aspirin Enteric Coated [Aspirin EC] 81 mg PO DAILY #30 tablet. 04/22/17 [Rx] Potassium Chloride Elixir [Potassium Chloride] 10 meq PO DAILY 08/10/17 [History] amLODIPine [Norvasc] 5 mg PO DAILY #30 tablet 08/11/17 [Rx] Beclomethasone Dipropionate [QVAR 80 mcg REDIHALER] 1 puff IH BID 10/14/18 [History] Docusate Sodium [Dulcolax Stool Softener] 100 mg PO DAILY PRN 10/14/18 [History] Ibuprofen [Motrin] 800 mg PO TID PRN 10/14/18 [History] Lidocaine Patch [Lidoderm 5% patch] 1 each TP DAILY PRN 10/14/18 [History] Pravastatin Sodium 10 mg PO DAILY 10/14/18 [History] Rivaroxaban [Xarelto] 10 mg PO 1700 10/14/18 [History] Spironolactone [Aldactone] 100 mg PO DAILY 10/14/18 [History] Ubidecarenone [Coenzyme Q10] 100 mg PO DAILY 10/14/18 [History] Allergy/AdvReac Type Severity Reaction Status Date / Time diazepam [From Valium] Allergy Severe Swelling Verified 09/22/17 22:06 of Lip/Tongue/Throat duloxetine [From Cymbalta] Allergy Severe Swelling Verified 09/22/17 22:06 of Lip/Tongue/Throat minocycline [Minocycline] Allergy Severe Swelling Verified 09/22/17 22:06 of Lip/Tongue/Throat olanzapine [From Zyprexa] Allergy Severe Swelling Verified 09/22/17 22:06 of Lip/Tongue/Throat iodine Allergy Mild SWELLING, Verified 09/22/17 22:06 SOB methylprednisolone Allergy Mild SWELLING,SO Verified 09/22/17 22:06 [From Medrol] B hydrocodone Allergy Swelling Verified 09/22/17 22:06 of Lip/Tongue/Throat Iodinated Contrast- Oral and Allergy Swelling Verified 09/22/17 22:06 IV Dye of Lip/Tongue/Throat Onion Allergy Swelling Verified 09/22/17 22:06 of Lip/Tongue/Throat oxycodone [From Percocet] AdvReac Mild Vomiting Verified 09/22/17 22:06 Review of Systems - Constitutional no chills, no fatigue, no fever(s) - EENT Nose, mouth and throat: no dizziness, no headache(s) - Cardiovascular no chest pain, no diaphoresis, no dyspnea - Respiratory no cough, no dyspnea - Gastrointestinal abdominal pain, nausea, vomiting - Genitourinary Genitourinary: dysuria, flank pain, urinary frequency, urinary hesitancy, urinary urgency, no difficulty urinating, no hematuria, no urinary incontinence - Musculoskeletal back pain, no muscle weakness - Integumentary no erythema, no rash - Neurological no confusion, no syncope - Psychiatric no anxiety, no confusion - Hematologic/Lymphatic no easy bleeding, no easy bruising - Allergic/Immunologic no throat swelling, no wheezing Exam Initial Vital Signs Temp Pulse Resp BP Pulse Ox 98.2 F 62 18 147/94 99 10/14/18 14:00 10/14/18 14:00 10/14/18 14:00 10/14/18 14:00 10/14/18 14:00 - General physical appearance Present: no distress, no pain - Eyes Present: PERRL, normal ocular movement - ENT Present: normal nares, no hearing loss, no congestion - Neck Present: no masses, trachea midline, no lymphadenopathy - Respiratory Present: normal respiratory effort - Cardiovascular Cardiovascular exam IM: RRR - Abdomen Abdomen: Present: soft, tender (RLQ pain) - Genitourinary Present: other (no CVAT ) - Integumentary Present: no rash, no abnormal pigmentation - Neurologic Present: normal coordination - Musculoskeletal Present: other (normal posture ) Urology Results - Labs 10/17/18 08:53 10/17/18 08:53 Abnormal lab results WBC 11.6 K/mcL (4.3-11.1) H 10/17/18 08:53 MPV 8.6 fL (9.4-12.4) L 10/17/18 08:53 11.7 K/mcL (1.6-8.9) H 10/15/18 05:58 4.9 K/mcL (0.6-4.6) H 10/15/18 05:58 Immature Plt Fraction 0.9 % (1.1-6.1) L 10/16/18 05:19 ESR 24 mm/hr (0-15) H 10/16/18 05:19 Chloride 109 mEq/L (98-107) H 10/17/18 08:53 Carbon Dioxide 19 mEq/L (23-29) L 10/15/18 05:58 Glucose 114 mg/dL (70-105) H 10/14/18 14:14 POC Glucose 102 mg/dL (70-99) H 10/15/18 05:58 112 Units/L (34-104) H 10/14/18 14:14 17 mg/L (Less than 10) H 10/16/18 05:19 Ur Specific [place] 1.008 (1.010-1.025) L 10/16/18 23:15 30 mg/dL (Neg-Trace) H 10/14/18 14:31 Moderate (Negative) H 10/16/18 23:15 5-15 per hpf (0-3) H 10/16/18 23:15 3-5 per hpf (0-3) H 10/14/18 14:31 Ur Squamous Epith Cells Many per lpf (None-Few) H 10/16/18 23:15 Diabetes panel 10/17/18 Range/Units 08:53 Sodium 141 (136-145) mEq/L Potassium 3.9 (3.5-5.1) mEq/L Chloride 109 H (98-107) mEq/L Carbon Dioxide 26 (23-29) mEq/L BUN 7 (6-20) mg/dL Creatinine 0.86 (0.60-1.20) mg/dL Glucose 92 (70-105) mg/dL Calcium 8.6 (8.6-10.3) mg/dL Calcium panel 10/17/18 Range/Units 08:53 Calcium 8.6 (8.6-10.3) mg/dL Pituitary panel 10/17/18 Range/Units 08:53 Sodium 141 (136-145) mEq/L Potassium 3.9 (3.5-5.1) mEq/L Chloride 109 H (98-107) mEq/L Carbon Dioxide 26 (23-29) mEq/L BUN 7 (6-20) mg/dL Creatinine 0.86 (0.60-1.20) mg/dL Glucose 92 (70-105) mg/dL Calcium 8.6 (8.6-10.3) mg/dL Adrenal panel 10/17/18 Range/Units 08:53 Sodium 141 (136-145) mEq/L Potassium 3.9 (3.5-5.1) mEq/L Chloride 109 H (98-107) mEq/L Carbon Dioxide 26 (23-29) mEq/L BUN 7 (6-20) mg/dL Creatinine 0.86 (0.60-1.20) mg/dL Glucose 92 (70-105) mg/dL Calcium 8.6 (8.6-10.3) mg/dL All other labs normal. - Imaging CT scan - abdomen: report reviewed, image reviewed CT scan - pelvis: report reviewed, image reviewed US - kidney/bladder: report reviewed, image reviewed Consult Discharge Plan - Plan Referrals: Michaelle William, DIRECTOR LABOR STANDARDS [Primary Care Provider] -
--- NOTE | 2018-10-17 14:58 | Internal Med Progress Note ---
<Alvin Naidu - Last Filed: 10/17/18 18:05> Hospitalist Progress Note - Encounter Date of Encounter: 10/17/18 Time of Encounter: 09:50 - Subjective Interval History: The patient is resting in bed at time of examination. She continues to have significant pain in her right lower abdomen, which is about the same severity as has been previously. She does say that it is moved lower into her right groin than it was previously so she feels that the pain is migrating. She has had no other symptoms - Exam Vitals: Temp Pulse Resp BP Pulse Ox 97.3 F L 55 15 133/83 98 10/17/18 14:21 10/17/18 14:21 10/17/18 14:21 10/17/18 14:21 10/17/18 14:21 Exam: GEN: No acute distress, A&O3 HEAD: Atraumatic, normocephalic EYES: Pupils symmetric, sclera white, conjunctiva pink HEART: RRR, normal S1 and S2, no murmurs LUNGS: Mild wheeze (improving) no rales or rhonchi ABD: Soft, tender right lower abd, nondistended, bowel sounds present BACK: no longer with right sided tenderness EXT: No edema noted, pulses 2/4 NEURO: No focal deficits, cooperative with exam SKIN: multiple dry scabbed lesions (abd, legs, arms, neck), no rashes - Assessment and Plan (1) Right flank pain Current Visit: Yes Status: Acute Assessment and Plan: Pain location now continues to be in right groin, does continue to move slightly lower. Added Flomax yesterday to encourage passing of potential stone CT negative for stone or hydronephrosis, but renal ultrasound shows bilateral non-obstructing stones Urine with large blood - culture pending, myoglobin pending We will stop IV fluids, encourage oral hydration Continue pain management Continue Flomax Urology consult for potential cystoscopy vs pyelogram (2) Leukocytosis Current Visit: Yes Status: Acute Assessment and Plan: Continues to improve, currently on Levaquin Source continues to be unclear, however likely to be involved with urinary system (3) Hypertension Current Visit: No Status: Chronic Assessment and Plan: Controlled at this time (4) Acute bronchitis Current Visit: Yes Status: Acute Assessment and Plan: Acute bronchitis and asthma exacerbation CXR with increased bilateral parahilar regions Continue albuterol (5) Tobacco abuse Current Visit: Yes Status: Chronic Assessment and Plan: Cessation counselling. Nicotine patch - Time Spent with Patient Total time spent is greater than 50% in coordination of care (as documented) at patient's floor/unit and/or counseling patient: Internal Medicine: Result - Labs CBC & Chem 7: 10/17/18 08:53 10/17/18 08:53 Labs: Short CBC 10/17/18 Range/Units 08:53 WBC 11.6 H (4.3-11.1) K/mcL Hgb 12.5 (11.5-15.4) g/dL Hct 38.4 (35.3-44.9) % Plt Count 247 (140-400) K/mcL Neutrophils # 6.6 (1.6-8.9) K/mcL BMP 10/17/18 08:53 Sodium 141 Potassium 3.9 Chloride 109 H Carbon Dioxide 26 BUN 7 Creatinine 0.86 Glucose 92 Calcium 8.6 Urine 10/16/18 Range/Units 23:15 Urine Color Yellow (Yellow) Urine Clarity Clear (Clear) Urine pH 6.0 (5.0-8.0) pH Units Ur Specific [place] 1.008 L (1.010-1.025) Urine Protein Negative (Neg-Trace) mg/dL Urine Glucose (UA) Normal (Normal) mg/dL Consult Discharge Plan - Plan Referrals: Michaelle William, SEED PRODUCTION FIELD SUPERVISOR [Primary Care Provider] - <Daniel Cain - Last Filed: 10/17/18 18:44> Hospitalist Progress Note - Encounter Date of Encounter: 10/17/18 - Assessment and Plan (1) Hypertension Current Visit: No Status: Chronic (2) Right flank pain Current Visit: Yes Status: Acute (3) Leukocytosis Current Visit: Yes Status: Acute (4) Tobacco abuse Current Visit: Yes Status: Chronic Internal Medicine: Result - Labs CBC & Chem 7: 10/17/18 08:53 10/17/18 08:53 Labs: Short CBC 10/17/18 Range/Units 08:53 WBC 11.6 H (4.3-11.1) K/mcL Hgb 12.5 (11.5-15.4) g/dL Hct 38.4 (35.3-44.9) % Plt Count 247 (140-400) K/mcL Neutrophils # 6.6 (1.6-8.9) K/mcL BMP 10/17/18 08:53 Sodium 141 Potassium 3.9 Chloride 109 H Carbon Dioxide 26 BUN 7 Creatinine 0.86 Glucose 92 Calcium 8.6 Urine 10/16/18 Range/Units 23:15 Urine Color Yellow (Yellow) Urine Clarity Clear (Clear) Urine pH 6.0 (5.0-8.0) pH Units Ur Specific [place] 1.008 L (1.010-1.025) Urine Protein Negative (Neg-Trace) mg/dL Urine Glucose (UA) Normal (Normal) mg/dL - Attending Attestation Patient seen and examined independently, including review of objective data including labs. I agree with plan of care as documented above by the resident with the following comments: Pt reports RLQ pain, and on exam has TTP R flank and RLQ. Abd is soft and nondistended. Pt s/p BIBIANA/BSO. No RUQ tenderness. CT relatively unremarkable although RUQ US showing small stones and UA shows microscopic hematuria. Today will consult Urology for recommendations for utility of possible other diagnostics, and will continue focusing on pain control. Can discontinue abx. <Alvin Naidu - Last Filed: 10/17/18 18:05> (2) Leukocytosis Qualifiers: Leukocytosis type: leukemoid reaction Qualified Code(s): D72.823 - Leukemoid reaction (3) Hypertension Qualifiers: Hypertension type: essential hypertension Qualified Code(s): I10 - Essential (primary) hypertension (4) Acute bronchitis Qualifiers: Bronchitis organism: other organism Qualified Code(s): J20.8 - Acute bronchi tis due to other specified organisms <Daniel Cain - Last Filed: 10/17/18 18:44> (1) Hypertension Qualifiers: Hypertension type: essential hypertension Qualified Code(s): I10 - Essential (primary) hypertension (3) Leukocytosis Qualifiers: Leukocytosis type: leukemoid reaction Qualified Code(s): D72.823 - Leukemoid reaction
[2018-10-17] MEDS: *HR* Rivaroxaban 10 MG TABLET PO SCH (17:12)
[2018-10-18] MEDS: Ketorolac 15 MG/ML VIAL IVP SCH ×5 (00:02→23:31)
[2018-10-18] MEDS: *HR* Promethazine 25 MG/ML VIAL IVP PRN (04:12)
[2018-10-18] MEDS: MORPHINE SUL Oral CONC 10 MG/0.5 ML ORAL.SYG SL PRN ×2 (04:12→19:41)
[2018-10-18] MEDS: MOMETASONE FUROATE 100 mcg Inhaler IH SCH ×2 (07:42→21:14)
--- NOTE | 2018-10-18 09:09 | Urology Progress Note ---
<Estrellita Saavedra N - Last Filed: 10/18/18 09:07> Date of Encounter: 10/18/18 Time of Encounter: 08:30 - Assessment and Plan (1) Right flank pain Current Visit: Yes Status: Acute Assessment and plan: Patient is a 48-year-old female who presents with history of right flank pain and right lower quadrant pain. Patient is allergic to IVP dye and is unable to complete a CT with contrast. Patient discussed premedication for CT versus proceeding with a more invasive procedure such as the bilateral retrograde pyelogram, diagnostic ureteroscopy and possible bilateral ureteral stent placement with Dr. Mercer. Patient states pain is persistent, and she wishes to proceed with the procedure. Dr. Mercer will be in to discuss risks and benefits and possibly obtain consent the patient still desires procedure. Se izure will likely take place tomorrow, and she will remain nothing by mouth after midnight. Progress Note Subjective: no new complaints Narrative: Patient seen and examined lying in bed in no apparent distress. Patient admits to continued RLQ pain and dysuria. Patient denies any gross hematuria, flank pain or incontinence. Objective Initial Vital Signs Temp Pulse Resp BP Pulse Ox 98.2 F 62 18 147/94 99 10/14/18 14:00 10/14/18 14:00 10/14/18 14:00 10/14/18 14:00 10/14/18 14:00 - General physical appearance Present: no distress, no pain - Respiratory Present: normal expansion, normal respiratory effort - Abdomen Present: soft, tender (RLQ). Absent: distended - Integumentary Present: no rash, no abnormal pigmentation - Musculoskeletal Present: normal posture - Psychiatric Present: oriented to time, oriented to person, oriented to place, speech is normal, memory intact - Labs 10/17/18 08:53 10/17/18 08:53 Diabetes panel 10/17/18 Range/Units 08:53 Sodium 141 (136-145) mEq/L Potassium 3.9 (3.5-5.1) mEq/L Chloride 109 H (98-107) mEq/L Carbon Dioxide 26 (23-29) mEq/L BUN 7 (6-20) mg/dL Creatinine 0.86 (0.60-1.20) mg/dL Glucose 92 (70-105) mg/dL Calcium 8.6 (8.6-10.3) mg/dL Calcium panel 10/17/18 Range/Units 08:53 Calcium 8.6 (8.6-10.3) mg/dL Pituitary panel 10/17/18 Range/Units 08:53 Sodium 141 (136-145) mEq/L Potassium 3.9 (3.5-5.1) mEq/L Chloride 109 H (98-107) mEq/L Carbon Dioxide 26 (23-29) mEq/L BUN 7 (6-20) mg/dL Creatinine 0.86 (0.60-1.20) mg/dL Glucose 92 (70-105) mg/dL Calcium 8.6 (8.6-10.3) mg/dL Adrenal panel 10/17/18 Range/Units 08:53 Sodium 141 (136-145) mEq/L Potassium 3.9 (3.5-5.1) mEq/L Chloride 109 H (98-107) mEq/L Carbon Dioxide 26 (23-29) mEq/L BUN 7 (6-20) mg/dL Creatinine 0.86 (0.60-1.20) mg/dL Glucose 92 (70-105) mg/dL Calcium 8.6 (8.6-10.3) mg/dL Consult Discharge Plan - Plan Referrals: Michaelle William, QUILL COLLECTOR [Primary Care Provider] - <Javi Mercer - Last Filed: 10/18/18 12:18> Date of Encounter: 10/18/18 - Assessment and Plan (1) Right flank pain Current Visit: Yes Status: Acute Assessment and plan: Note above should read, "Procedure will likely take place tomorrow" Please disregard the word, "Seizure" Objective Initial Vital Signs Temp Pulse Resp BP Pulse Ox 98.2 F 62 18 147/94 99 10/14/18 14:00 10/14/18 14:00 10/14/18 14:00 10/14/18 14:00 10/14/18 14:00 - Labs 10/17/18 08:53 10/17/18 08:53
[2018-10-18] MEDS: Potassium Chloride Elixir 20 MEQ/15 ML UDC PO SCH (11:25)
[2018-10-18] MEDS: Aspirin Enteric Coated 81 MG Tablet PO SCH (11:26)
[2018-10-18] MEDS: Famotidine 20 MG TABLET PO SCH ×2 (11:26→19:42)
[2018-10-18] MEDS: Metoprolol XL (24 HR) Succ 25 MG TAB.ER.24H PO SCH (11:26)
[2018-10-18] MEDS: amLODIPine 5 MG TABLET PO SCH (11:26)
[2018-10-18] MEDS: Nicotine 21 MG PATCH.TD24 TD SCH (11:27)
[2018-10-18] MEDS: *HR* Rivaroxaban 10 MG TABLET PO SCH (16:58)
--- NOTE | 2018-10-18 18:21 | Internal Med Progress Note ---
<Alvin Naidu - Last Filed: 10/18/18 18:18> Hospitalist Progress Note - Encounter Date of Encounter: 10/18/18 Time of Encounter: 09:25 - Subjective Interval History: Pt continued to have pain. Seen by urology and the plan to do b/l pyelogram. - Exam Vitals: Temp Pulse Resp BP Pulse Ox 98 F 57 16 119/74 97 10/18/18 15:03 10/18/18 15:03 10/18/18 15:03 10/18/18 15:03 10/18/18 15:03 Exam: GEN: No acute distress, A&O3 HEAD: Atraumatic, normocephalic EYES: Pupils symmetric, sclera white, conjunctiva pink HEART: RRR, normal S1 and S2, no murmurs LUNGS: Mild wheeze (improving) no rales or rhonchi ABD: Soft, tender right lower abd, nondistended, bowel sounds present BACK: no longer with right sided tenderness EXT: No edema noted, pulses 2/4 NEURO: No focal deficits, cooperative with exam SKIN: multiple dry scabbed lesions (abd, legs, arms, neck), no rashes - Assessment and Plan (1) Right flank pain Current Visit: Yes Status: Acute Assessment and Plan: Pain location now continues to be in right groin, does continue to move slightly lower. Added Flomax yesterday to encourage passing of potential stone CT negative for stone or hydronephrosis, but renal ultrasound shows bilateral non-obstructing stones Urine with large blood - culture pending, myoglobin pending We will stop IV fluids, encourage oral hydration Continue pain management Continue Flomax Urology consult, plan for cystoscopy w/ possible stents [place] (2) Hypertension Current Visit: No Status: Chronic Assessment and Plan: Controlled at this time (3) Leukocytosis Current Visit: Yes Status: Acute Assessment and Plan: Continues to improve, currently on Levaquin Source continues to be unclear, however likely to be involved with urinary system (4) Tobacco abuse Current Visit: Yes Status: Chronic Assessment and Plan: Cessation counselling. Nicotine patch - Time Spent with Patient Total time spent is greater than 50% in coordination of care (as documented) at patient's floor/unit and/or counseling patient: Internal Medicine: Result - Labs CBC & Chem 7: 10/17/18 08:53 10/17/18 08:53 Consult Discharge Plan - Plan Referrals: Michaelle William, OUTSIDE PRODUCTION INSPECTOR [Primary Care Provider] - <Daniel Cain - Last Filed: 10/18/18 23:17> Hospitalist Progress Note - Encounter Date of Encounter: 10/18/18 - Assessment and Plan (1) Hypertension Current Visit: No Status: Chronic (2) Right flank pain Current Visit: Yes Status: Acute (3) Leukocytosis Current Visit: Yes Status: Acute (4) Tobacco abuse Current Visit: Yes Status: Chronic Internal Medicine: Result - Labs CBC & Chem 7: 10/17/18 08:53 10/17/18 08:53 - Attending Attestation Patient seen and examined independently, including review of objective data including labs. I agree with plan of care as documented above by the resident with the following comments: Still having pain similar to yesterday. Urology planning for cystoscopy and ureteroscopy tomorrow. Continue pain control. <Alvin Naidu - Last Filed: 10/18/18 18:18> (2) Hypertension Qualifiers: Hypertension type: essential hypertension Qualified Code(s): I10 - Essential (primary) hypertension (3) Leukocytosis Qualifiers: Leukocytosis type: leukemoid reaction Qualified Code(s): D72.823 - Leukemoid reaction <Daniel Cain - Last Filed: 10/18/18 23:17> (1) Hypertension Qualifiers: Hypertension type: essential hypertension Qualified Code(s): I10 - Essential (primary) hypertension (3) Leukocytosis Qualifiers: Leukocytosis type: leukemoid reaction Qualified Code(s): D72.823 - Leukemoid reaction
[2018-10-19] MEDS: MORPHINE SUL Oral CONC 10 MG/0.5 ML ORAL.SYG SL PRN ×2 (04:10→08:54)
[2018-10-19] MEDS: Ketorolac 15 MG/ML VIAL IVP SCH ×2 (05:24→12:16)
[2018-10-19] MEDS: MOMETASONE FUROATE 100 mcg Inhaler IH SCH ×2 (07:28→20:25)
--- NOTE | 2018-10-19 08:24 | Urology Progress Note ---
Date of Encounter: 10/19/18 Time of Encounter: 07:50 - Assessment and Plan (1) Right flank pain Current Visit: Yes Status: Acute Assessment and plan: Patient is a 48-year-old female who presents with a history of right flank pain. Patient reports pain is more localized to the right lower quadrant, but she still experiencing right lower back pain as well. Patient states urinary symptoms remain unchanged, and she wishes to proceed with surgery. Patient has discussed all risks and benefits with Dr. Mercer, and she is willing to proceed. Patient signed consent to proceed with a cystoscopy, bilateral retrograde pyelogram, possible right diagnostic ureteroscopy and ureteral stent placement. Progress Note Narrative: Patient seen and examined lying in bed in no apparent distress. Patient reports continued dysuria, hematuria and right lower quadrant pain. Patient states she is voiding without difficulty. Patient wishes to proceed with surgical procedure. Objective Initial Vital Signs Temp Pulse Resp BP Pulse Ox 98.2 F 62 18 147/94 99 10/14/18 14:00 10/14/18 14:00 10/14/18 14:00 10/14/18 14:00 10/14/18 14:00 - General physical appearance Present: no distress, no pain - Respiratory Present: normal expansion, normal respiratory effort - Abdomen Present: soft, tender (RLQ) - Genitourinary Present: other (right CVAT) - Integumentary Present: no rash, no abnormal pigmentation - Musculoskeletal Present: normal posture - Psychiatric Present: oriented to time, oriented to person, oriented to place, speech is normal, memory intact - Labs 10/17/18 08:53 10/17/18 08:53 Consult Discharge Plan - Plan Referrals: Michaelle William, WIRE DRAWING SETTER [Primary Care Provider] -
[2018-10-19] MEDS: Famotidine 20 MG TABLET PO SCH ×2 (08:53→21:46)
[2018-10-19] MEDS: Metoprolol XL (24 HR) Succ 25 MG TAB.ER.24H PO SCH (08:54)
[2018-10-19] MEDS: Potassium Chloride Elixir 20 MEQ/15 ML UDC PO SCH (08:54)
[2018-10-19] MEDS: amLODIPine 5 MG TABLET PO SCH (08:54)
[2018-10-19] MEDS: Nicotine 21 MG PATCH.TD24 TD SCH (09:10)
[2018-10-19] MEDS: Aspirin Enteric Coated 81 MG Tablet PO SCH (09:10)
[2018-10-19] MEDS ORDERED: *HR* HYDROcodone/Acet 5/325 mg TABLET PO ONE (11:06)
[2018-10-19 11:22] LABS: Hematocrit 40.5 % (35.3-44.9); Hemoglobin 13.5 g/dL (11.5-15.4); Mean Corpuscular HGB Conc 33.3 g/dL (31.6-35.5); Mean Corpuscular Hemoglobin 29.7 pg (28.0-33.3); Mean Platelet Volume 8.5 fL (9.4-12.4); Platelet Count 259 K/mcL (140-400); Red Blood Count 4.55 M/mcL (3.82-4.97)
[2018-10-19 11:37] LABS: BUN/Creatinine Ratio 9 (6-26); Blood Urea Nitrogen 8 mg/dL (6-20); Carbon Dioxide 27 mEq/L (23-29); Chloride 109 mEq/L (98-107); Glucose 94 mg/dL (70-105); Osmolality,Calculated 292 (280-300); Potassium 4.2 mEq/L (3.5-5.1); Sodium 142 mEq/L (136-145); eGFR For Non-African Americans > 60 (> 60)
--- NOTE | 2018-10-19 12:49 | Internal Med Progress Note ---
Hospitalist Progress Note - Encounter Date of Encounter: 10/19/18 Time of Encounter: 12:49 - Subjective Interval History: Pt today says her pain is actually feeling a bit worse than yesterday, asking for breakthrough meds. Anticipating Urology procedure today and is hopeful it will help. Denies SOB, CP, N/V/D. - Exam Vitals: Temp Pulse Resp BP Pulse Ox 98.2 F 51 18 126/78 95 10/19/18 12:10 10/19/18 12:10 10/19/18 12:10 10/19/18 12:10 10/19/18 12:10 Exam: GEN: No acute distress although is mildly uncomfortable, A&O3 HEART: RRR, normal S1 and S2 LUNGS: breath sounds normal b/l, no wheezes or crackles ABD: Soft, tender R flank and RLQ EXT: No edema noted, pulses 2/4 NEURO: No focal deficits, cooperative with exam SKIN: multiple dry scabbed lesions (abd, legs, arms, neck), no rashes - Summary of Assessment and Plan Summary of Assessment and Plan: Manuela Chambers is a 48 F w hx HTN, HLD, GERD, anx/dep, nephrolithiasis s/p remote hydronephrosis and ureteral stents, who p/w R flank pain radiating to RLQ/groin, w microscopic hematuria on UA and labs showing mild leukocytosis. DDx narrowed due to CT abdomen w contrast without any acute pathology, including without stone, but RUQ US showing small stones which w microscopic hematuria is suggestive of possible etiology. Did have serum leukocytosis but otherwise unremarkable UA and thus have discontinued abx due to no improvement after 4 days of levaquin. Urology has been consulted and plans to take patient today for cystoscopy and ureteroscopy with retrograde pyelography and possible ureteral stent placement. Continue pain management and follow up after urologic procedure later today. Internal Medicine: Result - Labs CBC & Chem 7: 10/19/18 10:56 10/19/18 10:56 Labs: Short CBC 10/19/18 Range/Units 10:56 WBC 12.9 H (4.3-11.1) K/mcL Hgb 13.5 (11.5-15.4) g/dL Hct 40.5 (35.3-44.9) % Plt Count 259 (140-400) K/mcL [facility] 10/19/18 10:56 Sodium 142 Potassium 4.2 Chloride 109 H Carbon Dioxide 27 BUN 8 Creatinine 0.94 Glucose 94 Calcium 9.0 Consult Discharge Plan - Plan Referrals: Michaelle William, TERMINAL OPERATOR [Primary Care Provider] -
[2018-10-19] MEDS ORDERED: Isovue-300 50 ML VIAL ONE (15:26)
--- NOTE | 2018-10-19 15:43 | Anesthesia Evaluation PreOp ---
Date of Encounter: 10/19/18 Time of Encounter: 15:41 - Past History Planned Operation: Cysto, rina pyelogram poss stent Cardiac History: HTN Pulmonary History: Smoker, Asthma PHARMACOLOGY TEACHER History: Other (depression) Other Medical History: Denies Any Significant HX Anesthesia History: No Prior Anesthetic Complications, Past Anesthesia (R ureteroscopy, Hysterectomy, tonislls, tubal, appy, jorge, cervical spine, lumbar dics) Alcohol Use: none Drug use: none Medications and Allergies Albuterol Sulfate [Albuterol Inhaler] 2 puff IH Q4HR PRN 03/27/15 [History] Calcium Carbonate/Vitamin D3 [Calcium 600 + D Tablet] 1 tab PO DAILY 03/27/15 [History] Fluticasone Propionate Nasal [Flonase] 50 mcg NS BID PRN 03/27/15 [History] Montelukast [Singulair] 10 mg PO DAILY 03/27/15 [History] Metoprolol XL (24 HR) Succ [Toprol Xl] 25 mg PO DAILY 04/20/17 [History] Paroxetine HCl [Paxil] 60 mg PO DAILY 04/20/17 [History] Ranitidine HCl [Acid Towboat Pilot] 150 mg PO BID 04/20/17 [History] Aspirin Enteric Coated [Aspirin EC] 81 mg PO DAILY #30 tablet. 04/22/17 [Rx] Potassium Chloride Elixir [Potassium Chloride] 10 meq PO DAILY 08/10/17 [History] amLODIPine [Norvasc] 5 mg PO DAILY #30 tablet 08/11/17 [Rx] Beclomethasone Dipropionate [QVAR 80 mcg REDIHALER] 1 puff IH BID 10/14/18 [History] Docusate Sodium [Dulcolax Stool Softener] 100 mg PO DAILY PRN 10/14/18 [History] Ibuprofen [Motrin] 800 mg PO TID PRN 10/14/18 [History] Lidocaine Patch [Lidoderm 5% patch] 1 each TP DAILY PRN 10/14/18 [History] Pravastatin Sodium 10 mg PO DAILY 10/14/18 [History] Rivaroxaban [Xarelto] 10 mg PO 1700 10/14/18 [History] Spironolactone [Aldactone] 100 mg PO DAILY 10/14/18 [History] Ubidecarenone [Coenzyme Q10] 100 mg PO DAILY 10/14/18 [History] Allergy/AdvReac Type Severity Reaction Status Date / Time diazepam [From Valium] Allergy Severe Swelling Verified 09/22/17 22:06 of Lip/Tongue/Throat duloxetine [From Cymbalta] Allergy Severe Swelling Verified 09/22/17 22:06 of Lip/Tongue/Throat minocycline [Minocycline] Allergy Severe Swelling Verified 09/22/17 22:06 of Lip/Tongue/Throat olanzapine [From Zyprexa] Allergy Severe Swelling Verified 09/22/17 22:06 of Lip/Tongue/Throat iodine Allergy Mild SWELLING, Verified 09/22/17 22:06 SOB methylprednisolone Allergy Mild SWELLING,SO Verified 09/22/17 22:06 [From Medrol] B hydrocodone Allergy Swelling Verified 09/22/17 22:06 of Lip/Tongue/Throat Iodinated Contrast- Oral and Allergy Swelling Verified 09/22/17 22:06 IV Dye of Lip/Tongue/Throat Onion Allergy Swelling Verified 09/22/17 22:06 of Lip/Tongue/Throat oxycodone [From Percocet] AdvReac Mild Vomiting Verified 09/22/17 22:06 - Meds/Allergy Pre-op Review Medications Reviewed: Yes Allergies Reviewed: Yes Beta Blockers on Current Med List: Yes If Beta Blockers taken, Date/Time (Last Dose taken): 853am today Anesthesia Results - Labs 10/19/18 10:56 10/19/18 10:56 - Imaging EKG: report reviewed (NSR) Anesthesia Exam Vital Signs/O2 Sat, Most Current Temp Pulse Resp BP Pulse Ox 98.2 F 51 18 126/78 95 10/19/18 12:10 10/19/18 12:10 10/19/18 12:10 10/19/18 12:10 10/19/18 12:10 Weight: 75kg NPO (# of Hours): >8 - HEENT Pupil (Motor): Pupils equal, EOMI Mallampati: I Teeth: Normal Oral Opening: Greater than 3 - PHARMACOLOGY TEACHER PHARMACOLOGY TEACHER Motor: Normal RUE, Normal LUE, Normal RLE, Normal LLE, Normal Face PHARMACOLOGY TEACHER Sensory: Normal: RUE, LUE, RLE, LLE, Face - Cardiac Rhythm: Regular - Pulmonary Breath Sounds: bilateral Clear Respiratory Effort: Symmetrical Anesthesia Assess/Plan ASA Score: 2 Level of consciousness: Cooperative Anesthetic Plan: General Monitoring Plan: Standard Monitors Recovery Plan: PACU
[2018-10-19] MEDS ORDERED: Albuterol 2.5 MG/3 ML NEBULIZER IH ONE (15:54)
[2018-10-19] MEDS ORDERED: *HR* Meperidine 25 MG/ML SYRINGE IVP PRN (16:01)
[2018-10-19] MEDS ORDERED: *HR* Morphine 2 MG/ML SYRINGE IVP PRN ×2 (16:01→18:03)
[2018-10-19] MEDS ORDERED: Ondansetron 4 MG/2 ML VIAL IVP ONE ×2 (16:01→18:03)
[2018-10-19] MEDS ORDERED: *HR* Promethazine 25 MG/ML VIAL IVP PRN ×2 (16:01→18:03)
[2018-10-19] MEDS ORDERED: Ringers Solution, Lactated 1,000 ML IVC SCH (16:15)
[2018-10-19] MEDS ORDERED: *HR* Midazolam HCl 2 MG/2 ML VIAL ONE (16:23)
[2018-10-19] MEDS ORDERED: *HR* FentaNYL (PF) 100 MCG/2 ML VIAL ONE (16:23)
[2018-10-19] MEDS ORDERED: Lidocaine -MPF 2% 2 ML VIAL ONE (16:30)
[2018-10-19] MEDS ORDERED: Dexamethasone 4 MG/ML VIAL ONE (16:30)
[2018-10-19] MEDS ORDERED: Propofol 500 MG/50 ML INFUS..BTL ONE (16:31)
[2018-10-19] MEDS ORDERED: EPHEDrine 50 MG/ML VIAL ONE (16:44)
[2018-10-19] MEDS ORDERED: *HR* Succinylcholine 200 MG/10 ML VIAL IVP ONE (16:46)
[2018-10-19] MEDS ORDERED: *HR* PHENYLEPHRINE 1,000 MCG/10 ML SYRINGE IVP ONE (16:56)
[2018-10-19] MEDS ORDERED: CeFAZolin Syr 2,000MG/20 ML 2,000 MG/20 ML SYRINGE IVPB ONE (16:56)
--- NOTE | 2018-10-19 17:19 | Operative Note ---
Date of procedure: 10/19/18 Pre-op diagnosis: Hematuria, right flank pain Post-op diagnosis: same Procedure: Cystoscopy, bilateral retrograde pyelograms, diagnostic right ureteroscopy and stent placement Implants: 4.8-Dutch by 26 cm double-J stent Complications: None Anesthesia: JOSE CARLOSA Surgeon: Javi Mercer Was there an service assistant present: No Estimated blood loss (cc): 1 Specimen: None Condition: stable Disposition: PACU Procedure in Detail: Indications: Manuela is a 48-year-old woman who presents with right flank pain. Her urinalysis showed hematuria. She had a CT scan which showed no evidence of hydronephrosis. She is unable to take contrast intravenously secondary to IV contrast allergy. Her right flank pain has persisted. I recommend proceeding with a cystoscopy, bilateral retrograde pyelograms, diagnostic right ureteroscopy, and stent placement. She was informed of the risks of the surgery which include but are not limited to bleeding, infection, injury to other structures, need for further procedures, stent irritation, and the risk of anesthesia. She is willing to proceed. Procedure: After informed consent was obtained the patient was brought back to the operating room and placed in the supine position. A timeout was performed. Gen. anesthesia was administered and a laryngeal mask airway was placed. She was placed in the lithotomy position. Her genitalia were prepped and draped in the usual sterile fashion. Cystoscopy was then performed. The anterior urethra was unremarkable. There was a cystocele noted. There is no evidence of bladder tumor. The ureteral orifices were in the normal orthotopic position. The left ureteral orifice was cannulated with the open-ended catheter. Contrast dye was placed into the ureter. There was no filling defect in the ureter. The calyces appeared delicate and were not blunted. There was no evidence of tumor or stone. The open ended catheter was removed and contrast drained freely from the left kidney. A retrograde pyelogram was performed in the right side. The contrast went up the ureter without any difficulty. There was no evidence of filling defect. The calyces were normal in appearance. I did not see any hydronephrosis. The catheter was removed. Contrast was noted to reflux up the ureter without any signs of obstruction. This was noted with fluoroscopy. The zip wire was placed up the right ureter. I then passed the flexible ureteroscope into the kidney. All the calyces were surveyed. A pullout ureteroscopy showed no stone, stricture, or tumor. The wire was replaced and a 4.8-Dutch by 26 cm double-J stent was then placed with a good curl seen within the kidney and the bladder. The bladder was drained. She was then awakened from general anesthesia and brought to the recovery room in good condition. All sponge, needle, and instrument counts were correct.
[2018-10-19] MEDS ORDERED: Albuterol 2.5 MG/3 ML NEBULIZER IH PRN (18:03)
[2018-10-19] MEDS ORDERED: Naloxone 0.4 MG/ML INJ IVP PRN (18:03)
[2018-10-19] MEDS ORDERED: Fluticasone Propionate Nasal 50 MCG/SPRAY BOTTLE NS PRN (18:03)
[2018-10-19] MEDS ORDERED: MOM Conc 10 ML UD.LIQ PO PRN (18:03)
[2018-10-19] MEDS ORDERED: MORPHINE SUL Oral CONC 10 MG/0.5 ML ORAL.SYG SL PRN (18:03)
--- NOTE | 2018-10-19 19:30 | Anesthesia Evaluation Post Op ---
Date of Encounter: 10/19/18 Time of Encounter: 17:40 - Vital Signs Vital Signs: Vital Signs/O2 Sat/Glucose, Most Current Temp Pulse Resp BP Pulse Ox 10/19/18 18:39 97.5 F L 56 14 102/57 97 10/19/18 18:10 97.7 F 59 12 124/73 97 10/19/18 17:47 97.3 F L 66 14 92/60 97 10/19/18 17:37 63 12 93/61 95 10/19/18 17:27 62 12 92/56 97 10/19/18 17:17 97.0 F L 59 12 92/54 97 10/19/18 16:20 16 95 - Lungs Lungs: Clear Ascult./Percussion - Airway Airway: Non-obstructed - Cardiovascular Regular Rate - Mental Status Mental Status: Alert & Oriented, Answers Appropriately - Pain Pain Scale: 0 Pain Scale used: Numeric (1 - 10) - Nausea Vomiting Nausea Vomiting: Not Present - Hydration Hydration: Tolerates oral liquids, Able to void - Discharge PostOp Status: Transfer Patient to floor Anes Supervising Prov Stmt: Pt VSS And has met criteria for discharge to floor. MD Derrick
[2018-10-19] MEDS ORDERED: Acetaminophen IV 500 MG/50 ML INFUS..BTL IVPB ONE (22:49)
[2018-10-19] MEDS ORDERED: 0.9 % Sodium Chloride 500 ML IVC ONE (22:50)
[2018-10-20] MEDS: MORPHINE SUL Oral CONC 10 MG/0.5 ML ORAL.SYG SL PRN ×2 (03:06→08:49)
[2018-10-20] MEDS ORDERED: Ondansetron 4 MG/2 ML VIAL IVP ONE (06:20)
[2018-10-20] MEDS: MOMETASONE FUROATE 100 mcg Inhaler IH SCH (07:24)
--- NOTE | 2018-10-20 07:55 | Urology Progress Note ---
Date of Encounter: 10/20/18 Time of Encounter: 07:50 - Assessment and Plan (1) Right flank pain Current Visit: Yes Status: Acute Assessment and plan: 48-year-old woman with a history of right flank pain and hematuria. The pain is now moved to the right lower quadrant. I did not ascertain any concerning pathology on her procedure yesterday. Her urinary tract appears otherwise normal. I do not have a urologic source for her pain. I would consider other causes or consider consultation with other service lines. Please call with any questions. Progress Note Narrative: 48-year-old woman with a history of right lower quadrant pain status post cystoscopy, bilateral retrograde pyelograms, and diagnostic right ureteroscopy with stent placement. She is postoperative day #1. Her stent came out yesterday. Her urine is clear to light pink. She is still having the right lower quadrant pain. She has minimal right flank pain. No concerning lesions were seen on her evaluation. She has good drainage from both kidneys. There was no evidence of stone. Objective Initial Vital Signs Temp Pulse Resp BP Pulse Ox 98.2 F 62 18 147/94 99 10/14/18 14:00 10/14/18 14:00 10/14/18 14:00 10/14/18 14:00 10/14/18 14:00 - General physical appearance Present: well developed, well nourished, no distress - Respiratory Present: normal respiratory effort - Abdomen Present: soft - Labs 10/19/18 10:56 10/19/18 10:56 Diabetes panel 10/19/18 Range/Units 10:56 Sodium 142 (136-145) mEq/L Potassium 4.2 (3.5-5.1) mEq/L Chloride 109 H (98-107) mEq/L Carbon Dioxide 27 (23-29) mEq/L BUN 8 (6-20) mg/dL Creatinine 0.94 (0.60-1.20) mg/dL Glucose 94 (70-105) mg/dL Calcium 9.0 (8.6-10.3) mg/dL Calcium panel 10/19/18 Range/Units 10:56 Calcium 9.0 (8.6-10.3) mg/dL Pituitary panel 10/19/18 Range/Units 10:56 Sodium 142 (136-145) mEq/L Potassium 4.2 (3.5-5.1) mEq/L Chloride 109 H (98-107) mEq/L Carbon Dioxide 27 (23-29) mEq/L BUN 8 (6-20) mg/dL Creatinine 0.94 (0.60-1.20) mg/dL Glucose 94 (70-105) mg/dL Calcium 9.0 (8.6-10.3) mg/dL Adrenal panel 10/19/18 Range/Units 10:56 Sodium 142 (136-145) mEq/L Potassium 4.2 (3.5-5.1) mEq/L Chloride 109 H (98-107) mEq/L Carbon Dioxide 27 (23-29) mEq/L BUN 8 (6-20) mg/dL Creatinine 0.94 (0.60-1.20) mg/dL Glucose 94 (70-105) mg/dL Calcium 9.0 (8.6-10.3) mg/dL Consult Discharge Plan - Plan Referrals: Michaelle William, CRIBBING SETTER [Primary Care Provider] -
[2018-10-20] MEDS: Famotidine 20 MG TABLET PO SCH (08:34)
[2018-10-20] MEDS ORDERED: Potassium Chloride Elixir 20 MEQ/15 ML UDC PO SCH (09:00)
[2018-10-20] MEDS ORDERED: Aspirin Enteric Coated 81 MG Tablet PO SCH (09:00)
[2018-10-20] MEDS ORDERED: Nicotine 21 MG PATCH.TD24 TD SCH (09:00)
[2018-10-20] MEDS ORDERED: Metoprolol XL (24 HR) Succ 25 MG TAB.ER.24H PO SCH (09:00)
[2018-10-20] MEDS ORDERED: amLODIPine 5 MG TABLET PO SCH (09:00)
[2018-10-20 10:34] VITALS: BP 107/63
--- NOTE | 2018-10-20 11:01 | Discharge Summary ---
- NOTES TO OUTPATIENT PROVIDER Notes to Outpatient Provider: RLQ abd pain of unclear etiology, CT abd and cystoscopy/ureteroscopy unremarkable. Gradually improving, tolerating diet, will follow up outpatient for resolution and consideration for GI referral is still present. Date of Encounter: 10/20/18 Time of Encounter: 10:54 Hospital course: Dear Doctors, I recently had the opportunity to care for this patient during their recent hospital stay at [facility]. Manuela Chambers is a 48 F w hx HTN, HLD, GERD, anx/dep, nephrolithiasis s/p remote hydronephrosis and ureteral stents, who presented at time of admission with R-sided flank pain radiating to RLQ/groin. The pain began a few days prior, following an episode of "stomach flu" with viral URI symptoms associated with diarrhea. In the ED, UA showing only microscopic hematuria and labs showing mild leukocytosis of 12. A CT abdomen w contrast was unremarkable for any acute pathology, including without stone. Pt admitted for further eval. Of note, pt does not have a gallbladder, appendix, or uterus/ovaries. In the hospital, RUQ US showing small stones which w microscopic hematuria in context of pt's history was suggestive of possible etiology. Pt was placed empirically on levaquin for a few days due to pain and leukocytosis without improvement, and this was discontinued. Urology was eventually consulted and took patient for cystoscopy/ureteroscopy with retrograde pyelography which was unremarkable. Pt's pain still present but gradually improving each day, and she is tolerating diet. Exam with soft, benign abdomen, still with moderate tenderness to palpation of RLQ. Will be discharged with outpatient PCP follow up and 3 days of pain medication. Dx: RLQ abdominal pain, leukocytosis Pertinent tests/consults: Urology consult, ureteroscopy, CT abd Follow up: PCP 1 week Tests pending: none Med changes: - stop amlodipine 5 - new morphine 15 mg tabs, take 0.5 tab q6h prn pain - new nicotine patches - new flomax 0.4 Mental status: awake, fully oriented Code status: resident hall director spent on discharge: 35 minutes It has been my pleasure participating in this patient's care. Please contact me with any questions or concerns regarding their hospital stay. Sincerely, Daniel Keaster, MD - Discharge Medications Prescriptions: New Cyclobenzaprine [Flexeril] 10 mg PO TID PRN #10 tablet PRN Reason: Muscle Spasm Tamsulosin [Flomax] 0.4 mg PO DAILY #30 capsule Morphine Immed Rel [Morphine Sulfate] 7.5 mg PO Q6H PRN 3 Days #6 tab PRN Reason: Pain Nicotine Patch [Nicoderm] 21 mg TD DAILY #30 patch.td24 Continued Montelukast [Singulair] 10 mg PO DAILY Fluticasone Propionate Nasal [Flonase] 50 mcg NS BID PRN PRN Reason: ALLERGIES Albuterol Sulfate [Albuterol Inhaler] 2 puff IH Q4HR PRN PRN Reason: Shortness Of Breath Calcium Carbonate/Vitamin D3 [Calcium 600 + D Tablet] 1 tab PO DAILY Ranitidine HCl [Acid Chief Solution Architect] 150 mg PO BID Paroxetine HCl [Paxil] 60 mg PO DAILY Metoprolol XL (24 HR) Succ [Toprol Xl] 25 mg PO DAILY Aspirin Enteric Coated [Aspirin EC] 81 mg PO DAILY #30 tablet. Potassium Chloride Elixir [Potassium Chloride] 10 meq PO DAILY Beclomethasone Dipropionate [QVAR 80 mcg REDIHALER] 1 puff IH BID Ibuprofen [Motrin] 800 mg PO TID PRN PRN Reason: Pain Pravastatin Sodium 10 mg PO DAILY Rivaroxaban [Xarelto] 10 mg PO 1700 Spironolactone [Aldactone] 100 mg PO DAILY Docusate Sodium [Dulcolax Stool Softener] 100 mg PO DAILY PRN PRN Reason: Constipation Ubidecarenone [Coenzyme Q10] 100 mg PO DAILY Lidocaine Patch [Lidoderm 5% patch] 1 each TP DAILY PRN PRN Reason: Pain Discontinued amLODIPine [Norvasc] 5 mg PO DAILY #30 tablet Home Medications: Albuterol Sulfate [Albuterol Inhaler] 2 puff IH Q4HR PRN 03/27/15 [History] Calcium Carbonate/Vitamin D3 [Calcium 600 + D Tablet] 1 tab PO DAILY 03/27/15 [History] Fluticasone Propionate Nasal [Flonase] 50 mcg NS BID PRN 03/27/15 [History] Montelukast [Singulair] 10 mg PO DAILY 03/27/15 [History] Metoprolol XL (24 HR) Succ [Toprol Xl] 25 mg PO DAILY 11/16/17 [History] Paroxetine HCl [Paxil] 60 mg PO DAILY 04/20/17 [History] Ranitidine HCl [Acid Chief Solution Architect] 150 mg PO BID 04/20/17 [History] Aspirin Enteric Coated [Aspirin EC] 81 mg PO DAILY #30 tablet. 04/22/17 [Rx] Potassium Chloride Elixir [Potassium Chloride] 10 meq PO DAILY 08/10/17 [History] Beclomethasone Dipropionate [QVAR 80 mcg REDIHALER] 1 puff IH BID 10/14/18 [History] Docusate Sodium [Dulcolax Stool Softener] 100 mg PO DAILY PRN 10/14/18 [History] Ibuprofen [Motrin] 800 mg PO TID PRN 10/14/18 [History] Lidocaine Patch [Lidoderm 5% patch] 1 each TP DAILY PRN 10/14/18 [History] Pravastatin Sodium 10 mg PO DAILY 10/14/18 [History] Rivaroxaban [Xarelto] 10 mg PO 1700 10/14/18 [History] Spironolactone [Aldactone] 100 mg PO DAILY 10/14/18 [History] Ubidecarenone [Coenzyme Q10] 100 mg PO DAILY 10/14/18 [History] Cyclobenzaprine [Flexeril] 10 mg PO TID PRN #10 tablet 10/20/18 [Rx] Morphine Immed Rel [Morphine Sulfate] 7.5 mg PO Q6H PRN 3 Days #6 tab 10/20/18 [Rx] Nicotine Patch [Nicoderm] 21 mg TD DAILY #30 patch.td24 10/20/18 [Rx] Tamsulosin [Flomax] 0.4 mg PO DAILY #30 capsule 10/20/18 [Rx] Allergies/Adverse Reactions: Allergy/AdvReac Type Severity Reaction Status Date / Time diazepam [From Valium] Allergy Severe Swelling Verified 09/22/17 22:06 of Lip/Tongue/Throat duloxetine [From Cymbalta] Allergy Severe Swelling Verified 09/22/17 22:06 of Lip/Tongue/Throat minocycline [Minocycline] Allergy Severe Swelling Verified 09/22/17 22:06 of Lip/Tongue/Throat olanzapine [From Zyprexa] Allergy Severe Swelling Verified 09/22/17 22:06 of Lip/Tongue/Throat iodine Allergy Mild SWELLING, Verified 09/22/17 22:06 SOB methylprednisolone Allergy Mild SWELLING,SO Verified 09/22/17 22:06 [From Medrol] B hydrocodone Allergy Swelling Verified 09/22/17 22:06 of Lip/Tongue/Throat Iodinated Contrast- Oral and Allergy Swelling Verified 09/22/17 22:06 IV Dye of Lip/Tongue/Throat Onion Allergy Swelling Verified 09/22/17 22:06 of Lip/Tongue/Throat oxycodone [From Percocet] AdvReac Mild Vomiting Verified 09/22/17 22:06 Date of admission: 10/17/18 18:48 Primary care physician: Michaelle William CNP Consults: 10/17/18 10:58 Consult to Urology [CONS] Routine Consulting Provider: Urology Sravanthi Reason for Consult: Concern to right sided stone, cystogram? Call Completed: No - Constitutional Vitals: Temp Pulse Resp BP Pulse Ox 97.3 F L 59 18 107/63 97 10/20/18 10:31 10/20/18 10:31 10/20/18 10:31 10/20/18 10:31 10/20/18 10:31 General appearance: Present: A&O X 3, severe distress (Has intermittent severe R side pain.) Exam: GEN: No acute distress and appears more comfortable today, A&O3 HEART: RRR, normal S1 and S2 LUNGS: breath sounds normal b/l, no wheezes or crackles ABD: Soft, flank no longer tender, tender RLQ improving from previous days EXT: No edema noted, pulses 2/4 NEURO: No focal deficits, cooperative with exam SKIN: multiple dry scabbed lesions (abd, legs, arms, neck), no rashes - Patient Status Disposition: Home, Self-Care Condition: Fair Functional capacity at discharge: independent ambulation Overall status at discharge: patient is progressing back to baseline - Discharge Instructions Follow Up With: Michaelle William CNP [Primary Care Provider] - Additional Instructions: Resume normal activity as tolerated. Resume regular diet as tolerated. - Diet and Activity Activity: resume usual activities as tolerated Diet: advance to your usual diet
[2018-10-20] MEDS ORDERED: *HR* Rivaroxaban 10 MG TABLET PO SCH (17:00)
== END 2018-10-20 14:00 | disposition home or self-care (01) | DRG 468 ==
LOC: 3ANU 13:54 → EMEROOARM 13:54 → SUATTDRO 19:34 → 3ANU 20:00
PROVIDERS: ADMIT Internal Medicine; ATTEND Internal Medicine

== ENCOUNTER 2021-12-21 14:41 | Inpatient (IN) ==
[2021-12-21] MEDS ORDERED: Piperacillin/Tazobactam 3.375 GM in 0.9 % Sodium Chloride Mini Bag 100 ML IVPB ONE (16:02)
[2021-12-21] MEDS ORDERED: Naloxone 0.4 MG/ML INJ IVP PRN (16:29)
[2021-12-21] MEDS ORDERED: *HR* HYDROmorphone 4 MG TABLET PO PRN (17:00)
[2021-12-21 18:52] LABS: eGFR For African Americans > 60 (> 60); eGFR For Non-African Americans > 60 (> 60)
[2021-12-21] MEDS: Ondansetron 4 MG/2 ML VIAL IVP PRN (19:48)
[2021-12-21] MEDS: *HR* HYDROmorphone 2 MG TABLET PO PRN (19:50)
[2021-12-21] MEDS ORDERED: Ipratropium/Albuterol Neb 3 ML IH PRN (19:57)
[2021-12-21] MEDS: Piperacillin/Tazobactam 3.375 GM in 0.9 % Sodium Chloride Mini Bag 100 ML IVPB SCH (23:36)
[2021-12-22] MEDS: *HR* HYDROmorphone 2 MG TABLET PO PRN ×4 (02:50→21:37)
[2021-12-22 07:45] LABS: Basophils # 0.1 K/mcL (0.0-0.2); Basophils % 0.5 %; Eosinophils # 0.2 K/mcL (0.0-0.6); Eosinophils % 1.5 %; Hemoglobin 12.4 g/dL (11.5-15.4); Immature Granulocytes % 0.6 % (0-4); Lymphocytes # 3.6 K/mcL (0.6-4.6); Lymphocytes % 27.1 %; Mean Corpuscular HGB Conc 32.6 g/dL (31.6-35.5); Mean Corpuscular Hemoglobin 29.8 pg (28.0-33.3); Mean Corpuscular Volume 91.3 fL (83.0-100.0); Mean Platelet Volume 8.5 fL (9.4-12.4); Monocytes # 0.7 K/mcL (0.0-1.3); Neutrophils # 8.7 K/mcL (1.6-8.9); Platelet Count 331 K/mcL (140-400); Red Blood Count 4.16 M/mcL (3.82-4.97); Red Cell Distribution Width 13.4 % (11.5-14.5); Segmented Neutrophils % 65.3 %; White Blood Count 13.3 K/mcL (4.3-11.1)
[2021-12-22 07:52] LABS: INR 1.2; Prothrombin Time 13.1 Seconds (9.4-12.1)
[2021-12-22 07:58] LABS: BUN/Creatinine Ratio 9 (6-26); Blood Urea Nitrogen 8 mg/dL (6-20); Calcium 9.2 mg/dL (8.6-10.3); Carbon Dioxide 23 mEq/L (23-29); Chloride 104 mEq/L (98-107); Glucose 76 mg/dL (70-105); Magnesium 1.6 mg/dL (1.6-2.6); Osmolality,Calculated 277 (280-300); Potassium 4.4 mEq/L (3.5-5.1); Sodium 135 mEq/L (136-145); eGFR For African Americans > 60 (> 60); eGFR For Non-African Americans > 60 (> 60)
[2021-12-22] MEDS: Metoprolol XL (24 HR) Succ 25 MG TAB.ER.24H PO SCH (09:13)
[2021-12-22] MEDS: *HR* Enoxaparin 40 MG/0.4 ML SYRINGE SQ SCH ×3 (09:22→13:01)
[2021-12-22] MEDS: Aspirin Enteric Coated 81 MG Tablet PO SCH ×2 (09:23→09:28)
[2021-12-22] MEDS: Ondansetron 4 MG/2 ML VIAL IVP PRN ×2 (09:23→21:36)
[2021-12-22] MEDS: Piperacillin/Tazobactam 3.375 GM in 0.9 % Sodium Chloride Mini Bag 100 ML IVPB SCH ×2 (09:25→16:20)
[2021-12-23] MEDS: Piperacillin/Tazobactam 3.375 GM in 0.9 % Sodium Chloride Mini Bag 100 ML IVPB SCH ×4 (00:41→23:04)
[2021-12-23] MEDS: *HR* HYDROmorphone 2 MG TABLET PO PRN ×4 (03:37→23:04)
[2021-12-23] MEDS: *HR* Enoxaparin 40 MG/0.4 ML SYRINGE SQ SCH (06:22)
[2021-12-23 07:41] LABS: Basophils # 0.1 K/mcL (0.0-0.2); Basophils % 0.6 %; Eosinophils # 0.2 K/mcL (0.0-0.6); Eosinophils % 1.6 %; Hematocrit 39.1 % (35.3-44.9); Hemoglobin 12.6 g/dL (11.5-15.4); Immature Granulocytes % 0.4 % (0-4); Lymphocytes # 3.3 K/mcL (0.6-4.6); Lymphocytes % 28.4 %; Mean Corpuscular HGB Conc 32.2 g/dL (31.6-35.5); Mean Corpuscular Volume 93.1 fL (83.0-100.0); Mean Platelet Volume 8.3 fL (9.4-12.4); Monocytes # 0.7 K/mcL (0.0-1.3); Monocytes % 5.5 %; Neutrophils # 7.5 K/mcL (1.6-8.9); Platelet Count 315 K/mcL (140-400); Red Cell Distribution Width 13.3 % (11.5-14.5); Segmented Neutrophils % 63.5 %; White Blood Count 11.8 K/mcL (4.3-11.1)
[2021-12-23] MEDS ORDERED: Aspirin Enteric Coated 81 MG Tablet PO SCH (09:00)
[2021-12-23 09:34] LABS: BUN/Creatinine Ratio 9 (6-26); Blood Urea Nitrogen 9 mg/dL (6-20); Calcium 9.2 mg/dL (8.6-10.3); Carbon Dioxide 27 mEq/L (23-29); Chloride 105 mEq/L (98-107); Glucose 80 mg/dL (70-105); Osmolality,Calculated 280 (280-300); Potassium 4.4 mEq/L (3.5-5.1); Sodium 136 mEq/L (136-145); eGFR For African Americans > 60 (> 60); eGFR For Non-African Americans 59 (> 60)
[2021-12-23] MEDS: Metoprolol XL (24 HR) Succ 25 MG TAB.ER.24H PO SCH (11:51)
[2021-12-23] MEDS: Ondansetron 4 MG/2 ML VIAL IVP PRN (13:58)
[2021-12-24] MEDS: Ondansetron 4 MG/2 ML VIAL IVP PRN (00:28)
[2021-12-24 07:11] LABS: Basophils # 0.1 K/mcL (0.0-0.2); Basophils % 0.6 %; Eosinophils # 0.2 K/mcL (0.0-0.6); Eosinophils % 1.7 %; Hemoglobin 12.7 g/dL (11.5-15.4); Immature Granulocytes % 0.5 % (0-4); Lymphocytes # 2.8 K/mcL (0.6-4.6); Lymphocytes % 25.9 %; Mean Corpuscular HGB Conc 32.6 g/dL (31.6-35.5); Mean Corpuscular Hemoglobin 30.2 pg (28.0-33.3); Mean Corpuscular Volume 92.6 fL (83.0-100.0); Mean Platelet Volume 8.3 fL (9.4-12.4); Monocytes # 0.6 K/mcL (0.0-1.3); Monocytes % 5.4 %; Platelet Count 314 K/mcL (140-400); Red Blood Count 4.21 M/mcL (3.82-4.97); Red Cell Distribution Width 13.2 % (11.5-14.5); Segmented Neutrophils % 65.9 %; White Blood Count 10.6 K/mcL (4.3-11.1)
[2021-12-24 07:28] LABS: INR 1.2
[2021-12-24 07:30] LABS: BUN/Creatinine Ratio 7 (6-26); Blood Urea Nitrogen 7 mg/dL (6-20); Calcium 9.3 mg/dL (8.6-10.3); Carbon Dioxide 26 mEq/L (23-29); Chloride 104 mEq/L (98-107); Glucose 79 mg/dL (70-105); Osmolality,Calculated 281 (280-300); Potassium 3.8 mEq/L (3.5-5.1); Sodium 137 mEq/L (136-145); eGFR For African Americans > 60 (> 60); eGFR For Non-African Americans > 60 (> 60)
[2021-12-24] MEDS ORDERED: Bupivacaine/EPI 1:200k 0.25% 50 ML VIAL ONE (07:34)
[2021-12-24] MEDS ORDERED: *HR* HYDROmorphone PF 0.5 MG/0.5 ML SYRINGE IVP PRN (10:47)
[2021-12-24] MEDS ORDERED: Ondansetron 4 MG/2 ML VIAL IVP PRN (10:47)
[2021-12-24] MEDS: *HR* FentaNYL (PF) 100 MCG/2 ML VIAL IVP PRN ×2 (11:05→11:15)
[2021-12-24] MEDS: Metoprolol XL (24 HR) Succ 25 MG TAB.ER.24H PO SCH (11:29)
[2021-12-24] MEDS: Piperacillin/Tazobactam 3.375 GM in 0.9 % Sodium Chloride Mini Bag 100 ML IVPB SCH ×2 (13:09→21:40)
[2021-12-24] MEDS: *HR* HYDROmorphone 2 MG TABLET PO PRN ×3 (13:10→22:38)
[2021-12-25] MEDS: *HR* HYDROmorphone 2 MG TABLET PO PRN ×5 (02:36→22:24)
[2021-12-25 04:02] LABS: BUN/Creatinine Ratio 12 (6-26); Blood Urea Nitrogen 11 mg/dL (6-20); Calcium 8.8 mg/dL (8.6-10.3); Carbon Dioxide 26 mEq/L (23-29); Chloride 105 mEq/L (98-107); Glucose 88 mg/dL (70-105); Osmolality,Calculated 283 (280-300); Potassium 3.9 mEq/L (3.5-5.1); Sodium 137 mEq/L (136-145); eGFR For African Americans > 60 (> 60); eGFR For Non-African Americans > 60 (> 60)
[2021-12-25] MEDS: Piperacillin/Tazobactam 3.375 GM in 0.9 % Sodium Chloride Mini Bag 100 ML IVPB SCH ×3 (04:06→21:14)
[2021-12-25] MEDS: Metoprolol XL (24 HR) Succ 25 MG TAB.ER.24H PO SCH (08:39)
[2021-12-25] MEDS: Ondansetron 4 MG/2 ML VIAL IVP PRN (11:56)
[2021-12-25] MEDS ORDERED: *HR* HYDROmorphone 2 MG TABLET PO PRN (12:36)
[2021-12-26] MEDS: *HR* HYDROmorphone 2 MG TABLET PO PRN ×5 (03:08→21:54)
[2021-12-26] MEDS: Ondansetron 4 MG/2 ML VIAL IVP PRN (03:10)
[2021-12-26] MEDS: Piperacillin/Tazobactam 3.375 GM in 0.9 % Sodium Chloride Mini Bag 100 ML IVPB SCH ×3 (04:17→20:29)
[2021-12-26] MEDS: Metoprolol XL (24 HR) Succ 25 MG TAB.ER.24H PO SCH (07:56)
[2021-12-27] MEDS: *HR* HYDROmorphone 2 MG TABLET PO PRN ×5 (01:54→20:39)
[2021-12-27 03:16] LABS: Basophils # 0.1 K/mcL (0.0-0.2); Basophils % 0.5 %; Eosinophils # 0.4 K/mcL (0.0-0.6); Eosinophils % 3.7 %; Immature Granulocytes % 0.4 % (0-4); Lymphocytes # 2.8 K/mcL (0.6-4.6); Lymphocytes % 26.5 %; Mean Corpuscular HGB Conc 32.7 g/dL (31.6-35.5); Mean Corpuscular Hemoglobin 30.1 pg (28.0-33.3); Mean Corpuscular Volume 91.9 fL (83.0-100.0); Mean Platelet Volume 8.5 fL (9.4-12.4); Monocytes # 0.8 K/mcL (0.0-1.3); Monocytes % 7.5 %; Neutrophils # 6.4 K/mcL (1.6-8.9); Platelet Count 272 K/mcL (140-400); Red Blood Count 3.59 M/mcL (3.82-4.97); Segmented Neutrophils % 61.4 %; White Blood Count 10.5 K/mcL (4.3-11.1)
[2021-12-27 03:19] LABS: Hemoglobin 10.8 g/dL (11.5-15.4)
[2021-12-27 03:24] LABS: INR 1.2; Prothrombin Time 13.1 Seconds (9.4-12.1)
[2021-12-27 03:44] LABS: BUN/Creatinine Ratio 8 (6-26); Blood Urea Nitrogen 8 mg/dL (6-20); Calcium 8.8 mg/dL (8.6-10.3); Carbon Dioxide 26 mEq/L (23-29); Chloride 106 mEq/L (98-107); Glucose 93 mg/dL (70-105); Osmolality,Calculated 286 (280-300); Potassium 3.4 mEq/L (3.5-5.1); Sodium 139 mEq/L (136-145); eGFR For African Americans > 60 (> 60); eGFR For Non-African Americans > 60 (> 60)
[2021-12-27] MEDS: Piperacillin/Tazobactam 3.375 GM in 0.9 % Sodium Chloride Mini Bag 100 ML IVPB SCH ×3 (05:08→20:39)
[2021-12-27] MEDS: Metoprolol XL (24 HR) Succ 25 MG TAB.ER.24H PO SCH (08:19)
[2021-12-27] MEDS: Acetaminophen 325 MG TABLET PO PRN (08:19)
[2021-12-27] MEDS: Ondansetron 4 MG/2 ML VIAL IVP PRN (11:40)
[2021-12-27] MEDS: *HR* Rivaroxaban 10 MG TABLET PO SCH (16:48)
[2021-12-28] MEDS: *HR* HYDROmorphone 2 MG TABLET PO PRN ×6 (00:44→21:24)
[2021-12-28 02:44] LABS: Basophils # 0.1 K/mcL (0.0-0.2); Basophils % 0.6 %; Eosinophils # 0.5 K/mcL (0.0-0.6); Eosinophils % 4.7 %; Hematocrit 34.3 % (35.3-44.9); Hemoglobin 11.2 g/dL (11.5-15.4); Immature Granulocytes % 0.4 % (0-4); Lymphocytes # 2.9 K/mcL (0.6-4.6); Lymphocytes % 27.8 %; Mean Corpuscular HGB Conc 32.7 g/dL (31.6-35.5); Mean Corpuscular Hemoglobin 29.9 pg (28.0-33.3); Mean Corpuscular Volume 91.5 fL (83.0-100.0); Mean Platelet Volume 8.5 fL (9.4-12.4); Monocytes # 0.8 K/mcL (0.0-1.3); Monocytes % 7.8 %; Neutrophils # 6.1 K/mcL (1.6-8.9); Platelet Count 280 K/mcL (140-400); Red Blood Count 3.75 M/mcL (3.82-4.97); Red Cell Distribution Width 13.1 % (11.5-14.5); Segmented Neutrophils % 58.7 %; White Blood Count 10.4 K/mcL (4.3-11.1)
[2021-12-28 03:06] LABS: Blood Urea Nitrogen 11 mg/dL (6-20); Calcium 8.8 mg/dL (8.6-10.3); Carbon Dioxide 27 mEq/L (23-29); Chloride 107 mEq/L (98-107); Glucose 85 mg/dL (70-105); Osmolality,Calculated 289 (280-300); Potassium 3.6 mEq/L (3.5-5.1); Sodium 140 mEq/L (136-145)
[2021-12-28 04:22] LABS: BUN/Creatinine Ratio 11 (6-26); eGFR For African Americans > 60 (> 60); eGFR For Non-African Americans 59 (> 60)
[2021-12-28] MEDS: Ondansetron 4 MG/2 ML VIAL IVP PRN (04:59)
[2021-12-28] MEDS: Piperacillin/Tazobactam 3.375 GM in 0.9 % Sodium Chloride Mini Bag 100 ML IVPB SCH ×3 (05:05→21:27)
[2021-12-28] MEDS: Metoprolol XL (24 HR) Succ 25 MG TAB.ER.24H PO SCH (08:28)
[2021-12-28] MEDS: *HR* Rivaroxaban 10 MG TABLET PO SCH (17:08)
[2021-12-29] MEDS: *HR* HYDROmorphone 2 MG TABLET PO PRN ×4 (01:30→14:53)
[2021-12-29] MEDS: Ondansetron 4 MG/2 ML VIAL IVP PRN (01:30)
[2021-12-29 03:30] LABS: Basophils # 0.1 K/mcL (0.0-0.2); Basophils % 0.8 %; Eosinophils # 0.5 K/mcL (0.0-0.6); Eosinophils % 4.7 %; Hematocrit 37.4 % (35.3-44.9); Immature Granulocytes % 0.4 % (0-4); Lymphocytes # 3.4 K/mcL (0.6-4.6); Lymphocytes % 31.9 %; Mean Corpuscular HGB Conc 32.1 g/dL (31.6-35.5); Mean Corpuscular Hemoglobin 30.1 pg (28.0-33.3); Mean Corpuscular Volume 93.7 fL (83.0-100.0); Mean Platelet Volume 8.3 fL (9.4-12.4); Monocytes # 0.8 K/mcL (0.0-1.3); Monocytes % 7.2 %; Neutrophils # 5.8 K/mcL (1.6-8.9); Platelet Count 286 K/mcL (140-400); Red Blood Count 3.99 M/mcL (3.82-4.97); Red Cell Distribution Width 13.2 % (11.5-14.5); White Blood Count 10.5 K/mcL (4.3-11.1)
[2021-12-29 03:53] LABS: BUN/Creatinine Ratio 9 (6-26); Blood Urea Nitrogen 8 mg/dL (6-20); Calcium 9.1 mg/dL (8.6-10.3); Carbon Dioxide 26 mEq/L (23-29); Chloride 106 mEq/L (98-107); Glucose 88 mg/dL (70-105); Osmolality,Calculated 286 (280-300); Potassium 3.6 mEq/L (3.5-5.1); Sodium 139 mEq/L (136-145); eGFR For African Americans > 60 (> 60); eGFR For Non-African Americans > 60 (> 60)
[2021-12-29] MEDS: Acetaminophen 325 MG TABLET PO PRN (05:09)
[2021-12-29] MEDS: Piperacillin/Tazobactam 3.375 GM in 0.9 % Sodium Chloride Mini Bag 100 ML IVPB SCH (06:38)
[2021-12-29] MEDS: Metoprolol XL (24 HR) Succ 25 MG TAB.ER.24H PO SCH (09:08)
[2021-12-29 10:27] VITALS: BP 104/56; PULSE 54; TEMP 98.1; O2SAT 97
== END 2021-12-29 15:02 | disposition home health service (06) | DRG 711 ==
LOC: 3ANU 14:41 → EMEROOARM 14:41 → SUATTDRO 16:17 → 3ANU 17:07 → SUATTDRO 12-23 18:32
PROVIDERS: ADMIT Pharmacist; ATTEND Internal Medicine